=== PATIENT | female | born 1965 | race Caucasian/White ===

== ENCOUNTER → 2020-05-01 15:43 | Outpatient (BNV) | payer MEDICAID, SELFPAY | PROVIDERS: PCP Internal Medicine Geriatric Medicine; Visit Provider Internal Medicine | DX: D05.01 Lobular carcinoma in situ of right breast (principal) | CPT/HCPCS: 99213; 99214 ==

== ENCOUNTER 2020-05-20 18:31 | Emergency (ER) | payer MEDICAID, SELFPAY ==
[2020-05-20 19:18] VITALS: PULSE 90; TEMP 37; O2SAT 98; BMI 43.0
--- NOTE | 2020-05-20 19:40 | ED_ITS ---
HPI - Eye Problem General Chief complaint: Eye Problems Stated complaint: swollen left eye Time Seen by Provider: 05/20/20 19:35 Source: patient Mode of arrival: ambulatory Limitations: no limitations History of Present Illness HPI Narrative: Constitutional : No Weight loss, No Fever, No Chills, No Night Sweats, No Fatigue, No Malaise ENT/Mouth : No Hearing loss, No Ear Pain, No Nasal Congestion, No Sinus Pain, No Hoarseness, No sore throat, No Rhinorrhea, No Swallowing Difficulty Eyes: No Eye Pain, No Swelling, No Redness, No Foreign Body, No Discharge, No Vision Changes Cardiovascular : No Chest Pain, No SOB, No Dyspnea on Exertion, No Orthopnea, No Edema, No Palpitations Respiratory : No Cough, No Sputum, No Wheezing, No Smoke Exposure, No Dyspnea Gastrointestinal : No Nausea, No Vomiting, No Diarrhea, No Constipation, No abdominal Pain, No Hematochezia, No Melena Genitourinary : no irregular bleeding, No Dysuria, No Urinary Frequency, No Hematuria, No Urinary Incontinence, No Urgency, No Flank Pain, No Urinary Flow Changes, No Hesitancy Musculoskeletal : No joint pain, No Myalgias, No Joint Swelling Skin : No Skin Lesions, No rash Neuro : No Weakness, No Numbness, No Paresthesias, No Loss of Consciousness, No Dizziness, No Headache Psych : No Anxiety/Panic, No Depression, No SI/HI/AH/VH, No Social Issues, Heme/Lymph: No Bruising, No Bleeding,No Lymphadenopathy Endocrine : No Polyuria, No Polydipsia, No Temperature IntolerancePatient comes to emergency room complaining of left-sided eye itching. Started 2 days ago, no pain around the eye or with eye movements. Patient states she noticed today that her eyelid started getting swollen, in the morning she is waking up with crusty discharge. Patient states that over last 3 hours, her right eye has started to get itchy as well. Patient denies injury MD chief complaint: eye redness Related Data Home Medications Medication Instructions Recorded Confirmed aspirin 81 mg PO DAILY 05/01/20 05/01/20 atorvastatin 10 mg PO BEDTIME 05/01/20 05/01/20 ferrous sulfate [iron] 325 mg PO BID 05/01/20 05/01/20 letrozole 2.5 mg PO DAILY 05/01/20 05/01/20 lurasidone [Latuda] 80 mg PO QPM 05/01/20 05/01/20 melatonin 5 mg PO BEDTIME 05/01/20 05/01/20 omeprazole 20 mg PO DAILY 05/01/20 05/01/20 vortioxetine [Trintellix] 20 mg PO DAILY 05/01/20 05/01/20 Previous Rx's Medication Instructions Recorded erythromycin 1 applic OPHTHALMIC (EYE) DAILY 05/20/20 #3.5 g Allergies Allergy/AdvReac Type Severity Reaction Status Date / Time No Known Allergies Allergy Unknown Verified 05/01/20 16:07 Review of Systems Review of Systems: Constitutional : No Weight loss, No Fever, No Chills, No Night Sweats, No Fatigue, No Malaise ENT/Mouth : No Hearing loss, No Ear Pain, No Nasal Congestion, No Sinus Pain, No Hoarseness, No sore throat, No Rhinorrhea, No Swallowing Difficulty Eyes: Left eye swelling, redness, discharge, no pain Cardiovascular : No Chest Pain, No SOB, No Dyspnea on Exertion, No Orthopnea, No Edema, No Palpitations Respiratory : No Cough, No Sputum, No Wheezing, No Smoke Exposure, No Dyspnea Gastrointestinal : No Nausea, No Vomiting, No Diarrhea, No Constipation, No abdominal Pain, No Hematochezia, No Melena Genitourinary : no irregular bleeding, No Dysuria, No Urinary Frequency, No Hematuria, No Urinary Incontinence, No Urgency, No Flank Pain, No Urinary Flow Changes, No Hesitancy Musculoskeletal : No joint pain, No Myalgias, No Joint Swelling Skin : No Skin Lesions, No rash Neuro : No Weakness, No Numbness, No Paresthesias, No Loss of Consciousness, No Dizziness, No Headache Psych : No Anxiety/Panic, No Depression, No SI/HI/AH/VH, No Social Issues, Heme/Lymph: No Bruising, No Bleeding,No Lymphadenopathy Endocrine : No Polyuria, No Polydipsia, No Temperature Intolerance [facility] [place] Past Medical History Medical History Anxiety Anxiety and depression Arthralgia Diverticulitis GERD (gastroesophageal reflux disease) GI bleed (~04/2019) History of atypical hyperplasia of breast (~2008) Kidney stones Lobular carcinoma in situ (LCIS) of right breast (~11/2018) Obstructive sleep apnea Pulmonary embolism (~1982) Tubular adenoma (~2005) Surgical History History of laparoscopic cholecystectomy Previous section Family History Family History (Updated 05/01/20 @ 16:18 by Barbara Jarvis RN) Father Colon cancer Maternal Aunt Stomach cancer Paternal Aunt Colon cancer Mother Diabetes Heart disease Social History Social History Alcohol intake: never Smoking Status: Never smoker Advance Directives: No Advance Directives Information Provided: No Physical Exam Vital Signs: Vital Signs: Last Vital Signs Temp 98.6 F 05/20/20 19:18 Pulse 90 05/20/20 19:18 Pulse Ox 98 05/20/20 19:18 Body Mass Index 43.0 Appearance: Alert. Oriented X3. No acute distress. Eyes: Pupils equal, round and reactive to light. Left eye has watery whitish discharge, conjunctival injection on the left side, swollen eyelids on the left side upper and lower, no pain with eye movement, no pain to palpation around the eye. Fluorescent stain test negative, no foreign body, no corneal scratch ENT: Pharynx normal. Neck: Normal inspection. Neck supple. No lymph nodes noted. No crepitus CVS: Normal heart rate and rhythm. Pulses normal. Normal S1 and S2 Respiratory: No respiratory distress. Breath sounds normal. No Wheezing. No rales Abdomen: Soft and nontender. No rigidity. No distention. good BS x4 Skin: Skin warm and dry. Normal skin color. Normal skin turgor. Extremities: No lower extremity edema. No lower extremity edema. No Lacerations. No Rash Neuro: Oriented X 3. No motor deficit. No sensory deficit. Moving all extermities. No slurred speech. MDM - Eye Problem MDM Narrative Medical decision making narrative: I discussed the physical exam with the patient, patient likely having bacterial conjunctivitis versus allergies. Patient will be started on topical antibiotic. Discharge Plan Discharge Clinical Impression: Conjunctivitis Qualifiers: Conjunctivitis type: acute Acute conjunctivitis type: unspecified Laterality: left Qualified Code(s): H10.32 - Unspecified acute conjunctivitis, left eye Patient Disposition: Home, Self-Care Instructions: Conjunctivitis (ED) Additional Instructions: If you have any new or progressing symptoms, please return to the emergency room or call 911. Please follow-up with your primary care physician tomorrow. If you have any worsening or new symptoms, please return to the emergency room or call 911 Prescriptions: New erythromycin 5 mg/gram (0.5 %) ointment 1 applic ophthalmic (eye) DAILY Qty: 3.5 RF: 0 No Action atorvastatin 10 mg Tablet 10 mg PO BEDTIME RF: 0 ferrous sulfate [iron] 325 mg (65 mg iron) Tablet 325 mg PO BID RF: 0 omeprazole 20 mg Capsule,Delayed Release(Dr/Ec) 20 mg PO DAILY RF: 0 aspirin 81 mg Tablet 81 mg PO DAILY RF: 0 letrozole 2.5 mg Tablet 2.5 mg PO DAILY RF: 0 melatonin 5 mg Tablet 5 mg PO BEDTIME RF: 0 Latuda 80 mg Tablet 80 mg PO QPM RF: 0 Trintellix 20 mg Tablet 20 mg PO DAILY RF: 0
[2020-05-20] MEDS: Fluorescein Sodium STRIP 1 STRIP EYE-LEFT (19:46)
== END 2020-05-20 20:13 | disposition home or self-care (01) ==
PROVIDERS: Emergency Provider Emergency Medicine; PCP Internal Medicine Geriatric Medicine
DX: H10.32 Unspecified acute conjunctivitis, left eye (principal); H57.13 Ocular pain, bilateral; Z79.899 Other long term (current) drug therapy
CPT/HCPCS: 99283

== ENCOUNTER → 2020-07-11 14:54 | Outpatient (BNVA) | payer MEDICAID, SELFPAY | PROVIDERS: PCP Internal Medicine Geriatric Medicine; Visit Provider Surgery | DX: D05.01 Lobular carcinoma in situ of right breast (principal); N60.92 Unspecified benign mammary dysplasia of left breast; Z79.811 Long term (current) use of aromatase inhibitors | CPT/HCPCS: 99212 ==

== ENCOUNTER 2020-09-30 10:07 | Outpatient (REF) | payer MEDICAID, SELFPAY ==
[2020-09-30 12:57] LABS: Alanine Aminotransferase 8 U/L (0-31); Albumin Level 4.2 g/dL (3.5-5.0); Alkaline Phosphatase 124 U/L (39-117); Anion Gap 14 (12-20); Aspartate Amino Transferase 11 U/L (5-31); Bilirubin Direct 0.2 mg/dL (0.0-0.5); Bilirubin Total 0.3 mg/dL (0.0-1.0); Blood Urea Nitrogen 10 mg/dL (9-16); Calcium 9.1 mg/dL (8.4-10.2); Carbon Dioxide 27 mmol/L (22-29); Chloride 105 mmol/L (96-108); Cholesterol 162 mg/dL; Estimated Glomerular Filt Rate > 60; Glucose Random 99 mg/dL (60-115); HDL Cholesterol 40 mg/dL; LDL Cholesterol Calculated 98 mg/dl; Potassium 4.2 mmol/L (3.3-5.1); Sodium 142 mmol/L (135-145); Total Protein 7.2 g/dL (6.5-8.0); Triglycerides 124 mg/dL
== END 2020-09-30 10:08 | disposition home or self-care (01) ==
LOC: HO.LAB 10:07
PROVIDERS: PCP Internal Medicine Geriatric Medicine; Visit Provider Internal Medicine Geriatric Medicine
DX: Z79.899 Other long term (current) drug therapy (principal)
CPT/HCPCS: 36415; 80048; 80061; 80076

== ENCOUNTER 2020-12-20 14:52 | Outpatient (REF) | payer MEDICAID, SELFPAY ==
--- NOTE | ~2020-12-20 | US_ITS ---
EXAMINATION: US PELVIS CLINICAL INFORMATION: Ovarian cyst COMPARISON: Previous exam most recent October 2019 TECHNIQUE: Transabdominal pelvic ultrasound was performed. Patient refused transvaginal exam. Exam is limited due to patient body habitus. FINDINGS: The uterus is anteverted and measures 11.9 x 3.1 x 4 6 cm in dimension. No focal uterine lesion is seen. The endometrium is not well visualized. The right ovary measures 7.5 x 6 x 8.9 cm. There is a 7.5 x 5.2 x 7.6 cm right ovarian cyst. This measured 8 x 5.4 x 8.3 cm on previous exam and is probably not appreciably changed. The left ovary is not seen. There is no fluid in the pelvis. US/US pelvic complete IMPRESSION: Limited exam. 7.1 x 5.2 x 7.6 cm simple right ovarian cyst not appreciably changed from previous exams.
== END 2020-12-20 14:53 | disposition home or self-care (01) ==
LOC: HO.US 14:52
PROVIDERS: Visit Provider Nurse Practitioner Family
DX: N83.209 Unspecified ovarian cyst, unspecified side (principal)
CPT/HCPCS: 76856

== ENCOUNTER 2021-03-13 14:02 | Outpatient (REF) | payer MEDICAID, SELFPAY ==
--- NOTE | ~2021-03-13 | MM_ITS ---
EXAMINATION: MM SCREENING DIGITAL BREAST TOMOSYNTHESIS, BILATERAL CLINICAL INFORMATION: Right lumpectomy 11/25/2018 (LCIS, flat epithelial atypia with focal ADH and biopsy site changes). Due for yearly. The lifetime risk of breast cancer based on the Tyrer-Cuzick Model is 48%. COMPARISON: Mammography: 03/07/2020, 06/04/2019, 11/25/2018, 10/12/2018, 10/07/2018, 08/17/2017 TECHNIQUE: Digital breast tomosynthesis is performed in both the craniocaudal and mediolateral oblique views along with computer-aided detection (CAD). Synthesized 2D images are generated from the tomosynthesis. Additional bilateral exaggerated CC and additional bilateral MLO views are provided. FINDINGS: There are scattered areas of fibroglandular density (ACR BI-RADS breast composition Category b). There are post lumpectomy changes on the right with stable scarring. There is small oil cyst again noted in the vicinity of the scar. Neither breast shows interval mass or architectural abnormality or developing density. There are scattered stable benign calcifications including old stable group of calcifications posterior central right breast. The bilateral axilla and are unremarkable. MM/MM tomosynthesis screening BI IMPRESSION: No mammographic evidence of malignancy. Post therapy changes right breast. ASSESSMENT: BI-RADS 2: Benign RECOMMENDATION: 1. Routine annual mammography screening. 2. The lifetime risk of breast cancer based on the Tyrer-Cuzick Model is 48%. Additional annual adjunct screening with breast MRI may be of benefit in women with a risk score of 20% or greater. This patient's information was entered into a reminder system with a target due date for their next mammogram.
== END 2021-03-13 14:03 | disposition home or self-care (01) ==
LOC: HO.MAMMO 14:02
PROVIDERS: Visit Provider Surgery
DX: Z12.31 Encounter for screening mammogram for malignant neoplasm of breast (principal)
CPT/HCPCS: 77063; 77067

== ENCOUNTER → 2021-04-17 15:12 | Outpatient (BNVA) | payer MEDICAID, SELFPAY | PROVIDERS: PCP Internal Medicine Geriatric Medicine; Referring Provider Internal Medicine Geriatric Medicine; Visit Provider Surgery | DX: N60.92 Unspecified benign mammary dysplasia of left breast (principal); D05.01 Lobular carcinoma in situ of right breast | CPT/HCPCS: 99212 ==

== ENCOUNTER 2021-05-09 16:10 | Outpatient (REF) | payer MEDICAID, SELFPAY | END 2021-05-09 16:11 | disposition home or self-care (01) | LOC: HO.MRI 16:10 | PROVIDERS: Visit Provider Surgery | DX: Z13.89 Encounter for screening for other disorder (principal) ==

== ENCOUNTER 2021-08-31 19:36 | Inpatient (IN) | payer MEDICAID, SELFPAY ==
--- NOTE | ~2021-08-31 | CT_ITS ---
EXAMINATION: CT ABDOMEN AND PELVIS without and WITH CONTRAST CLINICAL INFORMATION: Lower GI bleed COMPARISON: GI bleed study 05/02/2019. CT scan abdomen pelvis 04/30/2019 TECHNIQUE: Noncontrast axial images obtained through the abdomen and pelvis. followed by the administration of 80 mL Omnipaque [address] of the abdomen and pelvis was repeated immediate postcontrast and at 2 minute delayed postcontrast. Coronal and sagittal 2-D MPR reformatted images are performed at CT scanner. [This CT examination was performed using dose optimization techniques as appropriate, variously including the following: *Automated exposure control *Adjustment of mA and/or kV according to patient size (this includes techniques or standardized protocols for targeted exams where dose is matched to indication/reason for exam; i.e. extremities or head) *Use of iterative reconstruction technique] DLP: 2366 mGy-cm. FINDINGS: CT SCAN ABDOMEN/PELVIS: Liver, Gallbladder and Biliary Tree: The liver is normal in size, shape, and attenuation. No focal hepatic lesion or biliary ductal dilatation is present. Status post cholecystectomy Pancreas: Unremarkable. Spleen: Unremarkable. Adrenal Glands: Unremarkable. Kidneys and Ureters: 1 mm nonobstructive stone lower pole right kidney. No stone in the left kidney. No ureteral calculus or hydronephrosis. Both kidneys are of normal size and contour with normal cortical thickness and normal enhancement. Bladder: Unremarkable. Gastrointestinal Tract: There are numerable diverticula of the sigmoid and descending colon with scattered diverticula also in the right colon. Surgical suture line at the mid distal sigmoid colon from prior partial sigmoidectomy. No acute change of the bowel. No bowel obstruction. No bowel wall thickening or edema. Moderate volume of stool in the colon. Postcontrast there is no evidence of extravasation or pooling of contrast in the lumen of the bowel. No evidence for active gastrointestinal hemorrhage by CT. The appendix is normal. The small bowel loops are normal. Stomach is unremarkable. Abdominal Wall: There is a fat-containing left periumbilical hernia. Hernia sac measures about 6 cm transverse. Lymph Nodes: Normal. Vascular: Normal enhancement of the abdominal and pelvic vasculature. Pelvic Viscera: Uterus is anteverted. There is a cyst at the superior margin of the body of uterus measuring 8 cm transverse. Density measurement 0 Hounsfield units. Osseous Structures: No acute osseous abnormality. There is degenerative spondylosis of thoracic and lumbar spine. CT/CT gi bleed abd pel wo/w con IMPRESSION: 1. Marked diverticulosis of colon. No evidence for active gastrointestinal hemorrhage. No acute change of the bowel. 2. Status post Cholecystectomy. 3. Adnexal cyst in the pelvis measuring 8 cm. 4. 1 mm nonobstructive stone in right kidney
--- NOTE | ~2021-08-31 | NM_ITS ---
EXAMINATION: NUCLEAR MEDICINE GI BLEEDING CLINICAL INFORMATION: Gastrointestinal hemorrhage. COMPARISON: CT abdomen and pelvis 09/01/2021. Nuclear medicine GI bleeding exam 05/02/2019 TECHNIQUE: 25 mCi of technetium 99m labeled red blood cells injected. Images obtained over the abdomen and pelvis through 60 minutes. FINDINGS: There is initially a faint blush of activity in the lumen of the mid descending colon. Activity continues to increase in the lumen of the left colon.. Most of the activity is seen within the mid transverse colon through splenic flexure. The activity flows into the distal colon on the later images. NM/NM GI bleeding IMPRESSION: Gastric intestinal hemorrhage in the left colon. Initial activity seen in the mid descending colon but the most intense area of activity present in the mid through distal transverse colon
[2021-08-31 19:51] VITALS: BP 141/75; PULSE 83; RESP 16; TEMP 36.4; O2SAT 97; BMI 42.7
[2021-08-31 22:00] LABS: MANUAL DIFF FLAG NO
[2021-08-31 22:02] LABS: Basophils Percent Auto 0.4 % (0-2); Eosinophils Percent Auto 0.4 % (0-4); Hematocrit 34.5 % (37.0-47.0); Hemoglobin 10.7 g/dl (12.0-16.0); Imm Gran Abs Auto 0.03 X10*3/uL (0.00-0.03); Imm Gran Pct Auto 0.3 % (0.0-0.4); Lymphocytes Absolute Auto 2.2 X10*3/uL (1.2-4.9); Lymphocytes Percent Auto 23.9 % (20-40); Mean Corpuscular Hemoglobin 26.8 pg (27.0-33.0); Mean Corpuscular Volume 86.3 fL (80.0-98.0); Mean Platelet Volume 10.7 fL (9.4-12.3); Monocytes Absolute Auto 0.6 X10*3/uL (0.1-1.2); Monocytes Percent Auto 6.6 % (2-11); Neutrophils Absolute Auto 6.3 x10*3/uL (2.0-8.3); Neutrophils Percent Auto 68.4 % (45-73); Platelet Count 315 X10*3/uL (160-400); Red Cell Distribution Width 14.1 % (11.0-16.0); White Blood Count 9.3 X10*3/uL (4.8-10.8)
[2021-08-31 22:19] LABS: Alanine Aminotransferase 7 U/L (0-31); Albumin Level 3.8 g/dL (3.5-5.0); Alkaline Phosphatase 124 U/L (39-117); Anion Gap 12 (12-20); Aspartate Amino Transferase 10 U/L (5-31); Bilirubin Total 0.3 mg/dL (0.0-1.0); Blood Urea Nitrogen 14 mg/dL (9-16); Calcium 9.4 mg/dL (8.4-10.2); Carbon Dioxide 26 mmol/L (22-29); Chloride 108 mmol/L (96-108); Creatinine Clr Calc Pharmacy 105.1; Estimated Glomerular Filt Rate > 60; Glucose Random 104 mg/dL (60-115); Potassium 4.1 mmol/L (3.3-5.1); Sodium 142 mmol/L (135-145); Total Protein 6.7 g/dL (6.5-8.0)
--- NOTE | 2021-08-31 23:34 | ED.FEMALEGU ---
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 Patient tells me that this has been going on for 2 days, she tells me that she has had 4-5 bowel movements over the past 2 days in each time she has a bowel movement she feels that the toilet bowl with bright red blood. She tells me that this has happened before. She has never required blood transfusions. She does have a complaints of weakness and dizziness described as disequilibrium. Patient does tell me she was constipated a few days ago however that has subsided. Patient denies fevers, chills, nausea, vomiting, chest pain, shortness of breath, abdominal pain, headache. <PURNIMA Fallon Last Filed: 09/01/21 00:45> Onset (ago): day(s) (1) <PURNIMA Fallon Last Filed: 09/01/21 00:45> Severity: similar to previous episodes <PURNIMA Fallon Last Filed: 09/01/21 00:45> Quality of pain: burning <PURNIMA Fallon Last Filed: 09/01/21 00:45> Consistency: intermittent <PURNIMA Fallon Last Filed: 09/01/21 00:45> Vaginal discharge: none <PURNIMA Fallon - Last Filed: 09/01/21 00:45> Vaginal bleeding: none <PURNIMA Fallon - Last Filed: 09/01/21 00:45> Exacerbating factors: other (Defecation) <PURNIMA Fallon - Last Filed: 09/01/21 00:45> Relieving factors: none <PURNIMA Fallon - Last Filed: 09/01/21 00:45> Associated symptoms: denies other symptoms <PURNIMA Fallon - Last Filed: 09/01/21 00:45> Treatment prior to arrival: none <PURNIMA Fallon - Last Filed: 09/01/21 00:45> Related Data Home medications: Home Medications Medication Instructions Recorded Confirmed aspirin 81 mg tablet 81 mg PO DAILY 05/01/20 05/02/21 atorvastatin 10 mg tablet 10 mg PO BEDTIME 05/01/20 05/02/21 ferrous sulfate 325 mg (65 mg 325 mg PO BID 05/01/20 05/02/21 iron) tablet (iron) letrozole 2.5 mg tablet 2.5 mg PO DAILY 05/01/20 05/02/21 lurasidone 80 mg tablet (Latuda) 80 mg PO QPM 05/01/20 05/02/21 melatonin 5 mg tablet 5 mg PO BEDTIME 05/01/20 05/02/21 omeprazole 20 mg capsule,delayed 20 mg PO DAILY 05/01/20 05/02/21 release vortioxetine 20 mg tablet 20 mg PO DAILY 05/01/20 05/02/21 (Trintellix) clonazepam 1 mg disintegrating 1 mg PO TID tab 07/11/20 05/02/21 tablet zolpidem 10 mg tablet (Ambien) 10 mg PO BEDTIME PRN 07/11/20 05/02/21 Previous Rx's Medication Instructions Recorded pramoxine 1 % topical foam 1 appl ND BID #15 g 09/01/21 (Proctofoam) <PURNIMA Fallon Last Filed: 09/01/21 00:45> Allergies/Adverse reactions: Allergies Allergy/AdvReac Type Severity Reaction Status Date / Time No Known Allergies Allergy Unknown Verified 05/02/21 16:07 <PURNIMA Fallon - Last Filed: 09/01/21 00:45> Review of Systems Review of Systems: Constitutional : No Weight loss, No Fever, No Chills, No Fatigue, No Malaise ENT/Mouth : No sore throat, No Rhinorrhea Eyes: No Eye Pain, No Swelling, No Redness Cardiovascular : No Chest Pain, No SOB, No Dyspnea on Exertion, No Orthopnea, No Edema, No Palpitations Respiratory : No Cough, No Sputum, No Wheezing Gastrointestinal : No Nausea, No Vomiting, No Diarrhea, No Constipation, No abdominal Pain, No Hematochezia, No Melena Genitourinary : No Dysuria, No Urinary Frequency, No Hematuria, Musculoskeletal : No joint pain, No Myalgias, No Joint Swelling Skin : No Skin Lesions, No rash Neuro : No Weakness, No Numbness, No Dizziness, No Headache Psych : No Anxiety/Panic, No Depression All other systems reviewed and are negative <PURNIMA Fallon - Last Filed: 09/01/21 00:45> Yes all other systems are reviewed and are negative <PURNIMA Fallon - Last Filed: 09/01/21 00:45> FORMERLY [facility] Past Medical History Attestation statement: The following information was validated with the patient. <PURNIMA Fallon - Last Filed: 09/01/21 00:45> Source: old records reviewed and nursing notes reviewed <PURNIMA Fallon - Last Filed: 09/01/21 00:45> Medical History: Medical History Anxiety Anxiety and depression Arthralgia Diverticulitis GERD (gastroesophageal reflux disease) GI bleed (~04/2019) History of atypical hyperplasia of breast (~2008) Kidney stones Lobular carcinoma in situ (LCIS) of right breast (~11/2018) Obstructive sleep apnea Pulmonary embolism (~1982) Tubular adenoma (~2005) <PURNIMA Fallon Last Filed: 09/01/21 00:45> Surgical History: Surgical History H/O breast biopsy History of colonoscopy History of laparoscopic cholecystectomy Previous section <PURNIMA Fallon - Last Filed: 09/01/21 00:45> Family History Family History: Family History Father Colon cancer Maternal Aunt Stomach cancer Paternal Aunt Colon cancer Mother Diabetes Heart disease <PURNIMA Fallon - Last Filed: 09/01/21 00:45> Social History Social History: Social History Are you a primary child care development specialist to a significant other at home: No Alcohol intake: never Advance Directives: No <PURNIMA Fallon - Last Filed: 09/01/21 00:45> Physical Exam Vital Signs: Vital Signs: Last Vital Signs Temp 97.6 F 08/31/21 19:51 Pulse 83 08/31/21 19:51 Resp 16 08/31/21 19:51 BP 141/75 H 08/31/21 19:51 Pulse Ox 97 08/31/21 19:51 BMI result Body Mass Index 42.7 VSS <PURNIMA Fallon - Last Filed: 09/01/21 00:45> Vital Signs: Last Vital Signs Temp 97.6 F 08/31/21 19:51 Pulse 83 08/31/21 19:51 Resp 16 08/31/21 19:51 BP 141/75 H 08/31/21 19:51 Pulse Ox 97 08/31/21 19:51 BMI result Body Mass Index 42.7 <Bernadine Charles MD - Last Filed: 09/01/21 01:59> Appearance: Alert.? Oriented X3.? No acute distress.? Head: Normocephalic, atraumatic, no step-offs or deformities Eyes: Pupils equal, round and reactive to light.? ENT: Pharynx normal.? Neck: Normal inspection.? Neck supple.? CVS: Normal heart rate and rhythm.? Pulses normal.? Respiratory: No respiratory distress.? Breath sounds normal.? Abdomen: Soft and nontender.? Skin: Skin warm and dry.? Normal skin color.? Normal skin turgor.? Rectal exam: Non strangulated/non incarcerated external hemorrhoid that is not bleeding. Upon manual examination there is bright red blood noted per rectum, with some blood clots. Extremities: No lower extremity edema.? No calf ttp. 5/5 strength to bilateral upper and lower extremities Back: No midline tenderness, no C-spine tenderness, full range of motion, no CVA tenderness bilaterally Neuro: Oriented X 3.? No motor deficit.? No sensory deficit. <PURNIMA Fallon - Last Filed: 09/01/21 00:45> Course Reevaluation(s) Reevaluation #1: Patient's CBC with no leukocytosis, normocytic anemia is noted, decreased red blood cells. No acute electrolyte abnormalities. OBS positive. Type and screen pending. Pending CT of abdomen and pelvis to rule out GI bleed. <PURNIMA Fallon - Last Filed: 09/01/21 00:45> Time: 00:04 <PURNIMA Fallon - Last Filed: 09/01/21 00:45> Reevaluation #2: CT of abdomen and pelvis pending. Patient was signed out to . Annabelley admit. <PURNIMA Fallon - Last Filed: 09/01/21 00:45> Time: 00:42 <PURNIMA Fallon - Last Filed: 09/01/21 00:45> Reevaluation #3: I discussed the case with inpatient hospitalist who accepts admission. On review of CT scan there is no evidence of active hemorrhage. <Bernadine Charles MD - Last Filed: 09/01/21 01:59> MDM - Female Genitourinary [facility] Narrative Medical decision making narrative: [id number] yo f pmhx rectal bleed, anxiety, depression, LCIS of right breast presnts with concerns of bright red blood per rectum x2 days progressively worsening. Patient showed me pictures after she had a bowel movement it does appear as though the toilet bowl is filled with bright red blood throughout. She tells me that it is also mixed in with her stool. She has a history of GI bleeds, she tells me a polyp ruptured before, she has no information or documentation on this here. She has never required a blood transfusion. She does have a complaints of dizziness. Patient is on 81 mg of asa daily PE significant for bright red blood per rectum with clots. An external hemorrhoid nonbleeding, nonthrombosed, non strangulated or incarcerated Plan- labs, obs, abdominal ct w/ contrast to r/o internal bleeding, ekg <PURNIMA Fallon - Last Filed: 09/01/21 00:45> Medical Records Attestation: I reviewed the patient's medical records. <PURNIMA Fallon - Last Filed: 09/01/21 00:45> Lab Data Attestation: I reviewed the patient's lab results. <PURNIMA Fallon - Last Filed: 09/01/21 00:45> Result diagrams: : 08/31/21 21:54 08/31/21 21:54 <PURNIMA Fallon - Last Filed: 09/01/21 00:45> Labs: Lab Results 08/31/21 08/31/21 08/31/21 Range/Units 21:54 21:54 23:46 WBC 9.3 (4.8-10.8) X10*3/uL RBC 4.00 L (4.20-5.50) X10*6/uL Hgb 10.7 L (12.0-16.0) g/dl Hct 34.5 L (37.0-47.0) % MCV 86.3 (80.0-98.0) fL MCH 26.8 L (27.0-33.0) pg MCHC 31.0 (31.0-35.0) g/dl RDW 14.1 (11.0-16.0) % Plt Count 315 (160-400) X10*3/uL MPV 10.7 (9.4-12.3) fL Immature Gran % (Auto) 0.3 (0.0-0.4) % Neut % (Auto) 68.4 (45-73) % Lymph % (Auto) 23.9 (20-40) % Austin % (Auto) 6.6 (2-11) % Eos % (Auto) 0.4 (0-4) % Baso % (Auto) 0.4 (0-2) % Lymph # (Auto) 2.2 (1.2-4.9) X10*3/uL Austin # (Auto) 0.6 (0.1-1.2) X10*3/uL Eos # (Auto) 0.0 (0.0-0.4) X10*3/uL Baso # (Auto) 0.0 (0.0-0.2) X10*3/uL Abs Immat Gran (auto) 0.03 (0.00-0.03) X10*3/uL Absolute Neuts (auto) 6.3 (2.0-8.3) x10*3/uL Absolute Nucleated RBC 0.000 (0.0-0.012) X10*3/uL Nucleated RBC % (auto) 0.0 (0.0-0.2) /100WBC Sodium 142 (135-145) mmol/L Potassium 4.1 (3.3-5.1) mmol/L Chloride 108 (96-108) mmol/L Carbon Dioxide 26 (22-29) mmol/L Anion Gap 12 (12-20) BUN 14 (9-16) mg/dL Creatinine 0.77 (0.5-1.4) mg/dL Estim Creat Clear Calc 105.1 Estimated GFR > 60 Random Glucose 104 (60-115) mg/dL Calcium 9.4 D (8.4-10.2) mg/dL Total Bilirubin 0.3 (0.0-1.0) mg/dL AST 10 (5-31) U/L ALT 7 (0-31) U/L Alkaline Phosphatase 124 H (39-117) U/L Total Protein 6.7 (6.5-8.0) g/dL Albumin 3.8 (3.5-5.0) g/dL Stool Occult Blood POSITIVE (NEGATIVE) COVID-19 (EMILY) (Negative) COVID-[address] [facility] Blood Type Antibody Screen 09/01/21 09/01/21 Range/Units 00:00 01:32 WBC (4.8-10.8) X10*3/uL RBC (4.20-5.50) X10*6/uL Hgb (12.0-16.0) g/dl Hct (37.0-47.0) % MCV (80.0-98.0) fL MCH (27.0-33.0) pg MCHC (31.0-35.0) g/dl RDW (11.0-16.0) % Plt Count (160-400) X10*3/uL MPV (9.4-12.3) fL Immature Gran % (Auto) (0.0-0.4) % Neut % (Auto) (45-73) % Lymph % (Auto) (20-40) % Austin % (Auto) (2-11) % Eos % (Auto) (0-4) % Baso % (Auto) (0-2) % Lymph # (Auto) (1.2-4.9) X10*3/uL Austin # (Auto) (0.1-1.2) X10*3/uL Eos # (Auto) (0.0-0.4) X10*3/uL Baso # (Auto) (0.0-0.2) X10*3/uL Abs Immat Gran (auto) (0.00-0.03) X10*3/uL Absolute Neuts (auto) (2.0-8.3) x10*3/uL Absolute Nucleated RBC (0.0-0.012) X10*3/uL Nucleated RBC % (auto) (0.0-0.2) /100WBC Sodium (135-145) mmol/L Potassium (3.3-5.1) mmol/L Chloride (96-108) mmol/L Carbon Dioxide (22-29) mmol/L Anion Gap (12-20) BUN (9-16) mg/dL Creatinine (0.5-1.4) mg/dL Estim Creat Clear Calc Estimated GFR Random Glucose (60-115) mg/dL Calcium (8.4-10.2) mg/dL Total Bilirubin (0.0-1.0) mg/dL AST (5-31) U/L ALT (0-31) U/L Alkaline Phosphatase (39-117) U/L Total Protein (6.5-8.0) g/dL Albumin (3.5-5.0) g/dL Stool Occult Blood (NEGATIVE) COVID-19 (EMILY) Negative (Negative) COVID-19 Clin Com See Note Blood Type O Positive Antibody Screen NEGATIVE <PURNIMA Fallon - Last Filed: 09/01/21 00:45> Lab Results 08/31/21 08/31/21 08/31/21 Range/Units 21:54 21:54 23:46 WBC 9.3 (4.8-10.8) X10*3/uL RBC 4.00 L (4.20-5.50) X10*6/uL Hgb 10.7 L (12.0-16.0) g/dl Hct 34.5 L (37.0-47.0) % MCV 86.3 (80.0-98.0) fL MCH 26.8 L (27.0-33.0) pg MCHC 31.0 (31.0-35.0) g/dl RDW 14.1 (11.0-16.0) % Plt Count 315 (160-400) X10*3/uL MPV 10.7 (9.4-12.3) fL Immature Gran % (Auto) 0.3 (0.0-0.4) % Neut % (Auto) 68.4 (45-73) % Lymph % (Auto) 23.9 (20-40) % Austin % (Auto) 6.6 (2-11) % Eos % (Auto) 0.4 (0-4) % Baso % (Auto) 0.4 (0-2) % Lymph # (Auto) 2.2 (1.2-4.9) X10*3/uL Austin # (Auto) 0.6 (0.1-1.2) X10*3/uL Eos # (Auto) 0.0 (0.0-0.4) X10*3/uL Baso # (Auto) 0.0 (0.0-0.2) X10*3/uL Abs Immat Gran (auto) 0.03 (0.00-0.03) X10*3/uL Absolute Neuts (auto) 6.3 (2.0-8.3) x10*3/uL Absolute Nucleated RBC 0.000 (0.0-0.012) X10*3/uL Nucleated RBC % (auto) 0.0 (0.0-0.2) /100WBC Sodium 142 (135-145) mmol/L Potassium 4.1 (3.3-5.1) mmol/L Chloride 108 (96-108) mmol/L Carbon Dioxide 26 (22-29) mmol/L Anion Gap 12 (12-20) BUN 14 (9-16) mg/dL Creatinine 0.77 (0.5-1.4) mg/dL Estim Creat Clear Calc 105.1 Estimated GFR > 60 Random Glucose 104 (60-115) mg/dL Calcium 9.4 D (8.4-10.2) mg/dL Total Bilirubin 0.3 (0.0-1.0) mg/dL AST 10 (5-31) U/L ALT 7 (0-31) U/L Alkaline Phosphatase 124 H (39-117) U/L Total Protein 6.7 (6.5-8.0) g/dL Albumin 3.8 (3.5-5.0) g/dL Stool Occult Blood POSITIVE (NEGATIVE) COVID-19 (EMILY) (Negative) COVID-19 Clin Com Blood Type Antibody Screen 09/01/21 09/01/21 Range/Units 00:00 01:32 WBC (4.8-10.8) X10*3/uL RBC (4.20-5.50) X10*6/uL Hgb (12.0-16.0) g/dl Hct (37.0-47.0) % MCV (80.0-98.0) fL MCH (27.0-33.0) pg MCHC (31.0-35.0) g/dl RDW (11.0-16.0) % Plt Count (160-400) X10*3/uL MPV (9.4-12.3) fL Immature Gran % (Auto) (0.0-0.4) % Neut % (Auto) (45-73) % Lymph % (Auto) (20-40) % Austin % (Auto) (2-11) % Eos % (Auto) (0-4) % Baso % (Auto) (0-2) % Lymph # (Auto) (1.2-4.9) X10*3/uL Austin # (Auto) (0.1-1.2) X10*3/uL Eos # (Auto) (0.0-0.4) X10*3/uL Baso # (Auto) (0.0-0.2) X10*3/uL Abs Immat Gran (auto) (0.00-0.03) X10*3/uL Absolute Neuts (auto) (2.0-8.3) x10*3/uL Absolute Nucleated RBC (0.0-0.012) X10*3/uL Nucleated RBC % (auto) (0.0-0.2) /100WBC Sodium (135-145) mmol/L Potassium (3.3-5.1) mmol/L Chloride (96-108) mmol/L Carbon Dioxide (22-29) mmol/L Anion Gap (12-20) BUN (9-16) mg/dL Creatinine (0.5-1.4) mg/dL Estim Creat Clear Calc Estimated GFR Random Glucose (60-115) mg/dL Calcium (8.4-10.2) mg/dL Total Bilirubin (0.0-1.0) mg/dL AST (5-31) U/L ALT (0-31) U/L Alkaline Phosphatase (39-117) U/L Total Protein (6.5-8.0) g/dL Albumin (3.5-5.0) g/dL Stool Occult Blood (NEGATIVE) COVID-19 (EMILY) Negative (Negative) COVID-19 Clin Com See Note Blood Type O Positive Antibody Screen NEGATIVE <Bernadine Charles MD - Last Filed: 09/01/21 01:59> Critical Care Time Critical Care Time Critical Care Time: No <PURNIMA Fallon - Last Filed: 09/01/21 00:45> Discharge Plan Discharge Clinical Impression: GI (gastrointestinal bleed) <PURNIMA Fallon - Last Filed: 09/01/21 00:45> Patient Disposition: Admitted As Inpatient <PURNIMA Fallon - Last Filed: 09/01/21 00:45>
[2021-08-31 23:53] LABS: OBS Int Ctl Valid YES; OBS1 POSITIVE (NEGATIVE)
[2021-09-01] VITALS (7 sets, daily range): BP systolic 93–130; BP diastolic 52–70; PULSE 70–113; RESP 12–18; TEMP 36.6–37.1; O2SAT 95–100
--- NOTE | 2021-09-01 00:01 | ECG_ITS ---
Test Reason : gi bleed Blood Pressure : / mmHG Vent. Rate : 079 BPM Atrial Rate : 079 BPM P-R Int : 144 ms QRS Dur : 128 ms QT Int : 430 ms P-R-T Axes : 029 -40 -14 degrees QTc Int : 493 ms Normal sinus rhythm Left axis deviation Right bundle branch block Abnormal ECG When compared with ECG of 21-JUL-2018 11:43, Right bundle branch block is now Present Referred By: Barbara Hawkins Electronically Signed By:ITALO WHITNEY MD
[2021-09-01] MEDS: iohexoL 350 MG/ML 100 ML INFUS..BTL 80 ML IV (01:09)
--- NOTE | 2021-09-01 01:15 | PC.NURSE ---
PT moved to main ed report given to makayla terrell.
[2021-09-01 01:51] LABS: COVID-19 Test Negative (Negative)
--- NOTE | 2021-09-01 02:32 | PM.IMHP ---
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 Patient reported that today she had 4 episodes of blood in the stool. Bright red blood per rectum. Denies any abdominal pain. Denies any nausea vomiting. Denies any further episodes of she came to the hospital. Denies any lightheadedness dizziness. Denies any chest pain or palpitations. Denies any recent history of antibiotics or [id number] pain medication usage. Denies any numbness tingling or focal weakness. Review of all other systems is negative except mentioned above ER course: Per ER team patient noted to have guaiac-positive stool; vitals stable; hemoglobin stable; CT abdomen was done which showed no evidence of active bleeding; admitted to the hospital for further management PMFSH Medical History Anxiety Anxiety and depression Arthralgia Diverticulitis GERD (gastroesophageal reflux disease) GI bleed (~04/2019) History of atypical hyperplasia of breast (~2008) Kidney stones Lobular carcinoma in situ (LCIS) of right breast (~11/2018) Obstructive sleep apnea Pulmonary embolism (~1982) Tubular adenoma (~2005) Family History Father Colon cancer Maternal Aunt Stomach cancer Paternal Aunt Colon cancer Mother Diabetes Heart disease Surgical History H/O breast biopsy History of colonoscopy History of laparoscopic cholecystectomy Previous section Social History Are you a primary md do resident urgent care to a significant other at home: No Alcohol intake: never Advance Directives: No Meds Allergies Allergy/AdvReac Type Severity Reaction Status Date / Time No Known Allergies Allergy Unknown Verified 05/02/21 16:07 Active Medications: Current Medications Pharmacy Consult (Consult Rx Perform Med Rec) 1 each MISCELLANE ONCE PRN PRN Reason: Consult order Home Medications Medication Instructions Recorded Confirmed Last Taken Type atorvastatin 10 mg tablet 10 mg PO BEDTIME 05/01/20 09/01/21 Unknown History ferrous sulfate 325 mg (65 mg 325 mg PO BID 05/01/20 09/01/21 Unknown History iron) tablet (iron) letrozole 2.5 mg tablet 2.5 mg PO DAILY 05/01/20 09/01/21 Unknown History lurasidone 80 mg tablet (Latuda) 80 mg PO QPM 05/01/20 09/01/21 Unknown History melatonin 5 mg tablet 5 mg PO BEDTIME 05/01/20 09/01/21 Unknown History omeprazole 20 mg capsule,delayed 20 mg PO DAILY 05/01/20 09/01/21 Unknown History release vortioxetine 20 mg tablet 20 mg PO DAILY 05/01/20 09/01/21 Unknown History (Trintellix) clonazepam 1 mg disintegrating 1 mg PO TID tab 07/11/20 09/01/21 Unknown History tablet zolpidem 10 mg tablet (Ambien) 10 mg PO BEDTIME PRN 07/11/20 09/01/21 Unknown History aspirin 81 mg tablet,delayed 1 tab PO QAM 09/01/21 09/01/21 Unknown History release fluticasone propionate 220 1 puff PO BID 09/01/21 09/01/21 Unknown History mcg/actuation HFA aerosol inhaler (Flovent HFA) Physical Exam Vital Signs and Narrative: Vital Signs: Last Vital Signs Temp 97.6 F 08/31/21 19:51 Pulse 83 08/31/21 19:51 Resp 16 08/31/21 19:51 BP 141/75 H 08/31/21 19:51 Pulse Ox 97 08/31/21 19:51 BMI result Body Mass Index 42.7 Gen: Appears be in no acute distress HEENT: NCAT, Moist mucosa. Pulmonary: Vesicular breath sounds, fair air entry CVS: Normal S1-S2 Abdomen: BS+, Soft, Nontender Extremities: Warm well perfused Neuro: Alert and awake. Results Labs CBC and Chem 7: 08/31/21 21:54 08/31/21 21:54 Labs: Laboratory Results - last 24 hr 08/31/21 08/31/21 08/31/21 21:54 21:54 23:46 MCV 86.3 MCH 26.8 L MCHC 31.0 RDW 14.1 Plt Count 315 MPV 10.7 Immature Gran % (Auto) 0.3 Neut % (Auto) 68.4 Lymph % (Auto) 23.9 [place] % (Auto) 6.6 Eos % (Auto) 0.4 Baso % (Auto) 0.4 Lymph # (Auto) 2.2 [place] # (Auto) 0.6 Eos # (Auto) 0.0 Baso # (Auto) 0.0 Abs Immat Gran (auto) 0.03 Absolute Neuts (auto) 6.3 Absolute Nucleated RBC 0.000 Nucleated RBC % (auto) 0.0 Anion Gap 12 Estim Creat Clear Calc 105.1 Estimated GFR > 60 Random Glucose 104 Calcium 9.4 D Total Bilirubin 0.3 AST 10 ALT 7 Alkaline Phosphatase 124 H Total Protein 6.7 Albumin 3.8 Stool Occult Blood POSITIVE COVID-19 (EMILY) COVID-19 Clin Com Blood Type Antibody Screen 09/01/21 09/01/21 00:00 01:32 MCV MCH MCHC RDW Plt Count MPV Immature Gran % (Auto) Neut % (Auto) Lymph % (Auto) [place] % (Auto) Eos % (Auto) Baso % (Auto) Lymph # (Auto) [place] # (Auto) Eos # (Auto) Baso # (Auto) Abs Immat Gran (auto) Absolute Neuts (auto) Absolute Nucleated RBC Nucleated RBC % (auto) Anion Gap Estim Creat Clear Calc Estimated GFR Random Glucose Calcium Total Bilirubin AST ALT Alkaline Phosphatase Total Protein Albumin Stool Occult Blood COVID-19 (EMILY) Negative COVID-19 Clin Com See Note Blood Type O Positive Antibody Screen NEGATIVE Imaging Radiologist's Impressions: Impressions Abdomen/Pelvis CT 09/01/21 01:05 IMPRESSION: 1. Marked diverticulosis of colon. No evidence for active gastrointestinal hemorrhage. No acute change of the bowel. 2. Status post Cholecystectomy. 3. Adnexal cyst in the pelvis measuring 8 cm. 4. 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 Admitted for following GI bleed: Patient reported bright red blood per rectum. Patient reports she had prior history of GI bleed has had colonoscopy-removed polyp about a year ago. Currently H&H stable GI consult Hold home aspirin. History of asthma: Stable For all other chronic conditions, home medications continued DVT prophylaxis: SCD boots Code status: Full code Quality Stroke Does the patient have a stroke diagnosis?: No VTE Prior VTE?: No VTE Risk Level:: Medical - moderate - high VTE Device Contraindication: N/A - Device Ordered VTE Drug Contraindication: Treatment Not Indicated
--- NOTE | 2021-09-01 02:59 | PC.NURSE ---
I assumed care of this pt at 0100 when [facility] closed. The pt states she came to the ED for evaluation of abdominal pain. Currently she denies pain. There is no nausea or vomiting, no chest pain or shortness of breath. She remains calm and cooperative with family at the bedside and is awaiting MD dispo.
--- NOTE | 2021-09-01 03:19 | PC.NURSE ---
Assumed care of pt from main ED. Pt ambulatory from wc to bed, in NAD, denies complaints. Vitals as charted. Given ice water and TV remote. Call light at hand. Awaiting inpatient bed assignment
--- NOTE | 2021-09-01 03:56 | PC.NURSE ---
consult put in to Celestino, change of application trainer
[2021-09-01] MEDS: Omeprazole 20 MG CAPSULE.DR PO (06:29)
[2021-09-01 06:43] LABS: MANUAL DIFF FLAG NO
[2021-09-01 06:53] LABS: Basophils Absolute Auto 0.1 X10*3/uL (0.0-0.2); Basophils Percent Auto 0.6 % (0-2); Eosinophils Absolute Auto 0.1 X10*3/uL (0.0-0.4); Eosinophils Percent Auto 0.9 % (0-4); Hematocrit 30.9 % (37.0-47.0); Hemoglobin 9.6 g/dl (12.0-16.0); Imm Gran Abs Auto 0.04 X10*3/uL (0.00-0.03); Imm Gran Pct Auto 0.5 % (0.0-0.4); Lymphocytes Absolute Auto 2.8 X10*3/uL (1.2-4.9); Lymphocytes Percent Auto 31.6 % (20-40); Mean Corpuscular HGB Conc 31.1 g/dl (31.0-35.0); Mean Corpuscular Hemoglobin 26.7 pg (27.0-33.0); Mean Corpuscular Volume 86.1 fL (80.0-98.0); Mean Platelet Volume 10.8 fL (9.4-12.3); Monocytes Absolute Auto 0.8 X10*3/uL (0.1-1.2); Monocytes Percent Auto 8.8 % (2-11); Neutrophils Absolute Auto 5.1 x10*3/uL (2.0-8.3); Neutrophils Percent Auto 57.6 % (45-73); Platelet Count 287 X10*3/uL (160-400); Red Blood Count 3.59 X10*6/uL (4.20-5.50); Red Cell Distribution Width 14.2 % (11.0-16.0); White Blood Count 8.8 X10*3/uL (4.8-10.8)
[2021-09-01 06:59] LABS: Anion Gap 11 (12-20); Blood Urea Nitrogen 14 mg/dL (9-16); Calcium 8.9 mg/dL (8.4-10.2); Carbon Dioxide 27 mmol/L (22-29); Chloride 107 mmol/L (96-108); Estimated Glomerular Filt Rate > 60; Glucose Random 98 mg/dL (60-115); Potassium 3.9 mmol/L (3.3-5.1); Sodium 141 mmol/L (135-145)
[2021-09-01] MEDS: Ferrous Sulfate 324 MG TABLET.DR PO ×2 (09:03→16:01)
[2021-09-01] MEDS: clonazePAM 1 MG TABLET PO ×3 (09:03→21:53)
--- NOTE | 2021-09-01 09:12 | PM.EVENT ---
Event Note Date of Service: 09/01/21 Event Note: I personally saw and examined the patient, I reviewed labs, imaging, medication and admission note.. She is admitted with rectal bleeding with acute blood loss anemia.. She states that she had colonocopy by Dr. Glez a year ago, I have no record of it. There is no active bleed, will clinically monitor and get GI's opinion next step. O/w assesment and plan per H and P from this morning.
--- NOTE | 2021-09-01 09:20 | PHA.MEDREC ---
Pharmacy Consult ? Medication Reconciliation Pharmacy has completed the medication reconciliation. No remarkable issues. Nohelia Montanez, JordanD
--- NOTE | 2021-09-01 09:28 | PHA.MEDREC ---
Pharmacy Consult ? Medication Reconciliation Pharmacy has completed the medication reconciliation. No remarkable issues. Nohelia Montanez, JordanD
[2021-09-01] MEDS: Letrozole 2.5 MG TABLET PO (11:15)
[2021-09-01] MEDS: Vortioxetine Hydrobromide 20 MG TABLET PO (11:15)
--- NOTE | 2021-09-01 14:05 | PM.EVENT ---
Event Note Date of Service: 09/01/21 Event Note: GI consult dictated presentation is c/w diverticular bleeding. monitor hct, if recurrent bleeding, obtain nuclear med rbc scan. last colon 08/03 showed tics and no recurrent polyps.
[2021-09-01] MEDS: 0.9 % Sodium Chloride Flush 3 ML SYRINGE IVFLUSH (16:01)
[2021-09-01] MEDS: Lurasidone HCl 80 MG TABLET PO (21:53)
[2021-09-01] MEDS: Atorvastatin Calcium 10 MG TABLET PO (21:58)
--- NOTE | 2021-09-01 22:09 | PC.NURSE ---
PT EATING/DRINKING MINIMALLY ENCOURGAED TO HAVE A SNACK BUT STATES SHES NOT IN THE MOOD. PT STATES SHE DOESNT FEEL LIKE SHE HAS TOO MUCH ENERGY PCT CHECKING POC AT THIS TIME
[2021-09-01 22:15] LABS: Glucose, Whole Blood 107 mg/dL (60-115)
[2021-09-02] VITALS (9 sets, daily range): BP systolic 96–135; BP diastolic 63–79; PULSE 97–127; RESP 12–23; TEMP 36.6–36.9; O2SAT 96–98
--- NOTE | 2021-09-02 01:35 | CONS_ITS ---
DATE OF SERVICE: 09/01/2021 REFERRING PHYSICIAN: Johnson Shirley MD REASON FOR CONSULTATION: Rectal bleeding. HISTORY OF PRESENT ILLNESS: The patient is a pleasant 56-year-old woman seen today in consultation, who was admitted to the hospital with complaints of rectal bleeding. Symptoms began the day of admission when she passed bright red blood per rectum without any associated abdominal pain, there was stool mixed with the blood. She had no associated upper GI symptoms and reports being compliant with her proton pump inhibitor, which she takes for gastroesophageal reflux disease. She does not take blood thinners and has not used any NSAIDs other than aspirin, which she is on chronically. She does have a history of diverticular disease and has previously undergone sigmoid resection. She also has a history of colon polyps and last underwent colonoscopy in July 2020 for followup of a tubulovillous adenoma involving the ileocecal valve. This showed no residual polypoid tissue. Diverticulosis was noted in the descending and sigmoid colon, and her anastomosis was widely patent. Since admission, she has been stable with no recurrent bleeding. Her hematocrit on admission was 34.5 and this morning was 30.9. She has not required blood transfusion. PAST MEDICAL HISTORY: 1. Diverticulosis with history of colon polyps as above. 2. Gastroesophageal reflux disease. 3. Anxiety/depression. 4. Nephrolithiasis. 5. Sleep apnea. 6. Breast cancer. 7. Asthma. 8. Pulmonary embolism. CURRENT MEDICATIONS: Her current medication list is reviewed in the chart. ALLERGIES: THERE ARE NONE REPORTED. FAMILY HISTORY: This is reviewed with the patient and is positive for colon cancer. SOCIAL HISTORY: There is no current tobacco, alcohol, or substance abuse. REVIEW OF SYSTEMS: SKIN: No pruritus. HEENT: Negative. CARDIOPULMONARY: No shortness of breath or chest pain. GASTROINTESTINAL: As above. GENITOURINARY: Negative. NEUROPSYCHIATRIC: Negative. PHYSICAL EXAMINATION: GENERAL: Shows a pleasant female, lying in bed, eating lunch. VITAL SIGNS: Reviewed in the electronic medical record and stable. SKIN: Anicteric. HEENT: Shows no scleral icterus. NECK: Without lymphadenopathy or thyromegaly. LUNGS: Clear. HEART: Shows a regular rate and rhythm. S1, S2. No murmur. ABDOMEN: Soft without focal masses or tenderness. Bowel sounds are present. No organomegaly is noted. EXTREMITIES: Without edema. LABORATORY DATA: Reviewed. CT scanning is reviewed, which showed no evidence of active bleeding. IMPRESSION: Gastrointestinal bleeding. This appears consistent with gastrointestinal bleeding from a diverticular source. At this point, there does not appear to be any recurrent bleeding, and her hematocrit has dropped somewhat but has not required blood transfusion. I would recommend monitoring her hematocrit. If she does show signs of active bleeding. I would obtain nuclear medicine red cell scanning, and if this was positive, she would need to be considered for angiography with Interventional Radiology. Thanks you for asking me to see her. I will follow her in the hospital with you. MD RACHEL Og/NATALYA / [phone]
--- NOTE | 2021-09-02 03:14 | PC.NURSE ---
pt oob coming back from the bathroom, states she had grossly bloody bm. Pt states she also had blood in her stool at approx 2300 but did not report to this rn. spoke to hospitalist who states he will order stat cbc. pt is a/o x3 does not appear pale, denies pain or weakness.
[2021-09-02 03:35] LABS: MANUAL DIFF FLAG NO
[2021-09-02 03:36] LABS: Basophils Absolute Auto 0.1 X10*3/uL (0.0-0.2); Basophils Percent Auto 0.8 % (0-2); Eosinophils Absolute Auto 0.2 X10*3/uL (0.0-0.4); Eosinophils Percent Auto 1.9 % (0-4); Hematocrit 28.9 % (37.0-47.0); Hemoglobin 8.8 g/dl (12.0-16.0); Imm Gran Abs Auto 0.05 X10*3/uL (0.00-0.03); Imm Gran Pct Auto 0.5 % (0.0-0.4); Lymphocytes Absolute Auto 3.4 X10*3/uL (1.2-4.9); Lymphocytes Percent Auto 36.2 % (20-40); Mean Corpuscular HGB Conc 30.4 g/dl (31.0-35.0); Mean Corpuscular Hemoglobin 26.4 pg (27.0-33.0); Mean Corpuscular Volume 86.8 fL (80.0-98.0); Mean Platelet Volume 10.6 fL (9.4-12.3); Monocytes Absolute Auto 0.8 X10*3/uL (0.1-1.2); Monocytes Percent Auto 8.6 % (2-11); Neutrophils Absolute Auto 4.9 x10*3/uL (2.0-8.3); Platelet Count 303 X10*3/uL (160-400); Red Blood Count 3.33 X10*6/uL (4.20-5.50); Red Cell Distribution Width 14.6 % (11.0-16.0); White Blood Count 9.3 X10*3/uL (4.8-10.8)
[2021-09-02] MEDS: Omeprazole 20 MG CAPSULE.DR PO (07:58)
[2021-09-02] MEDS: Vortioxetine Hydrobromide 20 MG TABLET PO (07:58)
[2021-09-02] MEDS: clonazePAM 1 MG TABLET PO ×3 (07:58→22:13)
[2021-09-02] MEDS: Ferrous Sulfate 324 MG TABLET.DR PO ×2 (07:58→19:00)
[2021-09-02] MEDS: Letrozole 2.5 MG TABLET PO (07:58)
--- NOTE | 2021-09-02 09:49 | PM.GIPN ---
Subjective Subjective Date of Service: 09/02/21 Interval History: no pain reports some red blood/clots earlier today Critical Care Time (minutes): 0 Physical Exam Vital Signs: Vital Signs: Last Vital Signs Temp 98.1 F 09/02/21 06:16 Pulse 97 09/02/21 06:16 Resp 12 09/02/21 06:16 BP 135/79 09/02/21 06:16 Pulse Ox 98 09/02/21 06:16 BMI result Body Mass Index 42.7 Const: General: cooperative GI: Other: abdomen is soft and nontender Objective Data Labs CBC & Chem 7: 09/02/21 03:21 09/01/21 06:13 Procedures Date of Service Date of Service: 09/02/21 Progress Note: A&P Assessment and plan (1) GI (gastrointestinal bleed): Status: Acute Plan hct stable monitor bleeding scan if significant bleeding Fall Risk Details Current Medications: Current Medications Acetaminophen (Acetaminophen 325 Mg Tablet) 650 mg PO Q6H PRN PRN Reason: Pain, Mild (Pain Scale 1-3) Atorvastatin Calcium (Atorvastatin Calcium 10 Mg Tablet) 10 mg PO BEDTIME [facility] Last Admin: 09/01/21 21:58 Dose: 10 mg Documented by: Clonazepam (Clonazepam 1 Mg Tablet) 1 mg PO TID [facility] Last Admin: 09/02/21 07:58 Dose: 1 mg Documented by: Ferrous Sulfate (Ferrous Sulfate 324 Mg Tablet.) 324 mg PO BIDWM [facility] Last Admin: 09/02/21 07:58 Dose: 324 mg Documented by: Fluticasone Propionate (Fluticasone Propionate 250 Mcg Blst.W.Dev) 1 puff INHALE RBID [facility] Last Admin: 09/02/21 08:19 Dose: Not Given Documented by: Letrozole (Letrozole 2.5 Mg Tablet) 2.5 mg PO DAILY [facility] Last Admin: 09/02/21 07:58 Dose: 2.5 mg Documented by: Lurasidone HCl (Lurasidone Hcl 80 Mg Tablet) 80 mg PO BEDTIME [facility] Last Admin: 09/01/21 21:53 Dose: 80 mg Documented by: Melatonin (Melatonin 3 Mg Tablet) 6 mg PO BEDTIME PRN PRN Reason: Insomnia Omeprazole (Omeprazole 20 Mg Capsule.) 20 mg PO DAILY@0630 [facility] Last Admin: 09/02/21 07:58 Dose: 20 mg Documented by: Pharmacy Consult (Consult Rx Perform Med Rec) 1 each MISCELLANE ONCE PRN PRN Reason: Consult order Senna (Sennosides 8.6 Mg Tablet) 17.2 mg PO BEDTIME PRN PRN Reason: Constipation Sodium Chloride (0.9 % Sodium Chloride Flush 3 Ml Syringe) 3 ml IVFLUSH QSHIFT [facility] Last Admin: 09/02/21 08:02 Dose: Not Given Documented by: Vortioxetine (Vortioxetine Hydrobromide 20 Mg Tablet) 20 mg PO DAILY [facility] Last Admin: 09/02/21 07:58 Dose: 20 mg Documented by: Zolpidem Tartrate (Zolpidem Tartrate 5 Mg Tablet) 5 mg PO BEDTIME PRN PRN Reason: Insomnia Time Spent With Patient Time: Total time spent is greater than 50% in coordination of care (as documented) at patient's floor/unit and/or counseling patient: Time with patient: less than 15 minutes Quality Stroke Does the patient have a stroke diagnosis?: No VTE Prior VTE?: No VTE Risk Level:: Medical - moderate - high VTE Device Contraindication: N/A - Device Ordered VTE Drug Contraindication: Treatment Not Indicated
--- NOTE | 2021-09-02 10:00 | MHC.CM.PN ---
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 PT DOES NOT HAVE A HCP BUT REPORTS SHE WOULD CONSIDER NAMING HER DAUGHTER, HIMANSHU VARNER [phone]. CM WILL CHECK IN WITH HER AT A LATER TIME TO ASSIST IN HCP COMPLETION OBSERVATION NOTICE DELIVERED CURRENT DC PLAN IS HOME WITH [employer]UMPTION OF TRA[employer]PERATOR [employer] FAMILY TO TRANSPORT
--- NOTE | 2021-09-02 10:40 | PC.NURSE ---
0758 Pt medicated per SEP. Pt is alert and oriented, Appears to be resting comfortably at this time and offering no complaints. Pt denies any current bleeding since the oncoming of this RNs shift. Pt aware to notify RN if she notices any bleeding. Pt medicated per SEP. Callbell and belongings within reach.
--- NOTE | 2021-09-02 11:21 | HO.PM.IMPN ---
Subjective Subjective Date of Service: 09/02/21 Interval History: F/u on rectal bleed, acute blood loss anemia, no pain reports some red blood/clots earlier overnight, none this morning. Review of Systems rectal bleed, no abodminal pain, no dizziness Physical Exam Vital Signs: Vital Signs: Last Vital Signs Temp 98.1 F 09/02/21 06:16 Pulse 97 09/02/21 06:16 Resp 12 09/02/21 06:16 BP 135/79 09/02/21 06:16 Pulse Ox 98 09/02/21 06:16 BMI result Body Mass Index 42.7 Const: Other: General: AO X 3, no acute distress Resp: CTA bilateral CVS: S1,S2,RRR GI: +BS, NT, no distention, rectal exam defered Skin: No rash Neuro: motor grossly intact Psych: appropriate affect Objective Data Active Medications Acetaminophen (Acetaminophen 325 Mg Tablet) 650 mg PO Q6H PRN PRN Reason: Pain, Mild (Pain Scale 1-3) Atorvastatin Calcium (Atorvastatin Calcium 10 Mg Tablet) 10 mg PO BEDTIME [facility] Last Admin: 09/01/21 21:58 Dose: 10 mg Documented by: FREDY Clonazepam (Clonazepam 1 Mg Tablet) 1 mg PO TID [facility] Last Admin: 09/02/21 07:58 Dose: 1 mg Documented by: RYANN Ferrous Sulfate (Ferrous Sulfate 324 Mg Tablet.Dr) 324 mg PO BIDWM [facility] Last Admin: 09/02/21 07:58 Dose: 324 mg Documented by: RYANN Fluticasone Propionate (Fluticasone Propionate 250 Mcg Blst.W.Dev) 1 puff INHALE RBID [facility] Last Admin: 09/02/21 08:19 Dose: Not Given Documented by: KEV Non-Admin Reason: Patient Refused Letrozole (Letrozole 2.5 Mg Tablet) 2.5 mg PO DAILY [facility] Last Admin: 09/02/21 07:58 Dose: 2.5 mg Documented by: RYANN Lurasidone HCl (Lurasidone Hcl 80 Mg Tablet) 80 mg PO BEDTIME [facility] Last Admin: 09/01/21 21:53 Dose: 80 mg Documented by: FREDY Melatonin (Melatonin 3 Mg Tablet) 6 mg PO BEDTIME PRN PRN Reason: Insomnia Omeprazole (Omeprazole 20 Mg Capsule.) 20 mg PO DAILY@0630 [facility] Last Admin: 09/02/21 07:58 Dose: 20 mg Documented by: RYANN Pharmacy Consult (Consult Rx Perform Med Rec) 1 each MISCELLANE ONCE PRN PRN Reason: Consult order Senna (Sennosides 8.6 Mg Tablet) 17.2 mg PO BEDTIME PRN PRN Reason: Constipation Sodium Chloride (0.9 % Sodium Chloride Flush 3 Ml Syringe) 3 ml IVFLUSH QSHIFT [facility] Last Admin: 09/02/21 08:02 Dose: Not Given Documented by: RYANN Non-Admin Reason: Med Not Available Vortioxetine (Vortioxetine Hydrobromide 20 Mg Tablet) 20 mg PO DAILY [facility] Last Admin: 09/02/21 07:58 Dose: 20 mg Documented by: RYANN Zolpidem Tartrate (Zolpidem Tartrate 5 Mg Tablet) 5 mg PO BEDTIME PRN PRN Reason: Insomnia Labs CBC & Chem 7: 09/02/21 03:21 09/01/21 06:13 Labs: Laboratory Results - last 24 hr 09/01/21 09/02/21 22:11 03:21 MCV 86.8 MCH 26.4 L MCHC 30.4 L RDW 14.6 Plt Count 303 MPV 10.6 Immature Gran % (Auto) 0.5 H Neut % (Auto) 52.0 Lymph % (Auto) 36.2 [place] % (Auto) 8.6 Eos % (Auto) 1.9 Baso % (Auto) 0.8 Lymph # (Auto) 3.4 [place] # (Auto) 0.8 Eos # (Auto) 0.2 Baso # (Auto) 0.1 Abs Immat Gran (auto) 0.05 H Absolute Neuts (auto) 4.9 Absolute Nucleated RBC 0.000 Nucleated RBC % (auto) 0.0 POC Glucose 107 Assessment and Plan (1) GI (gastrointestinal bleed): Status: Acute (2) Acute blood loss anemia: Status: Acute Plan 56F with a past medical history of asthma, GERD, history of GI bleed, 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 Admitted for following GI bleed: high suspicion for diverticular bleed Acute blood loss anemia sec GIB -Continue monitoring H/H and hemodynamicall -hold transufusion -Tag red cell scan with active bleed -GI following History of asthma: No exacerbation For all other chronic conditions, home medications continued DVT prophylaxis: SCD boots Code status: Full code, out of bed, ambulate Quality Stroke Does the patient have a stroke diagnosis?: No VTE Prior VTE?: No VTE Risk Level:: Medical - moderate - high VTE Device Contraindication: N/A - Device Ordered VTE Drug Contraindication: Treatment Not Indicated
--- NOTE | 2021-09-02 14:21 | PC.NURSE ---
Pt now c/o increased rectal bleeding and some dizziness, vss. Dr Ayoub made aware via [employer]. awaiting further orders.
--- NOTE | 2021-09-02 14:46 | PM.EVENT ---
Event Note Date of Service: 09/03/21 Event Note: Patient had another episode of rectal bleeding and felt dizzy +Orthostatic: Layin/65 P 98 Sittin/67 P 119 Standin/68 P127 Requesting bleeding scan
[2021-09-02] MEDS: Lactated Ringers 1,000 ML 150 ML IVCONT (15:19)
[2021-09-02] MEDS: 0.9 % Sodium Chloride Flush 3 ML SYRINGE IVFLUSH (15:24)
[2021-09-02 15:27] LABS: Hematocrit 27.4 % (37.0-47.0); Hemoglobin 8.4 g/dl (12.0-16.0)
--- NOTE | 2021-09-02 17:57 | PM.CNGS ---
History of Present Illness Consult details Consult date: 09/02/21 Requesting physician: Ho Ayoub Narrative: 56 year old female patient with a prior history of breast cancer and sigmoid resection in 2006 for diverticulitis presenting now with a 2 day history of bleeding per rectum. She denies nausea, vomiting, abdominal pain or distension. She does take baby ASA but denies other anticoagulants. She reports approximately 4-5 bloody BMs on Friday and several small BMs on Friday. Hgb on presentation was 10.6 and decreased to 8.[address] abdomen/pelvis revealed diverticulosis with no evidence of active bleeding. Bleeding scan reveals activity initially in the descending colon but the most intense activity in the distal transverse colon. She is intermittently tachycardic since her admission. Review of Systems Constitutional: Constitutional: Denies chills, Denies fever(s), Denies headache(s) and Denies poor appetite ENT: Denies dizziness and Denies headache(s) Cardiovascular: Cardiovascular: Denies chest pain, Reports rapid heart rate, Denies palpitations and Denies slow heart rate Respiratory: Respiratory: Denies chest congestion, Denies cough, Denies pain on inspiration and Denies wheezing Gastrointestinal: Gastrointestinal: Denies abdominal pain, Denies bloating, Reports hematochezia, Reports change in stool character, Denies constipation, Reports loose stools, Denies nausea, Denies vomiting and Denies hematemesis Musculoskeletal: Musculoskeletal: Denies back pain, Denies arthralgias, Denies joint swelling and Denies numbness Integumentary/Breasts: Skin/Breast: Denies change in pigmentation, Denies erythema and Denies rash Neurologic: Denies dizziness, Denies headache(s) and Denies numbness Psychiatric: Psychiatric: Reports anxiety and Denies depression Endocrine: Endocrine: Denies palpitations Hematologic/Lymphatic: Hematologic/Lymphatic: Denies easy bleeding, Denies easy bruising and Denies lymphadenopathy Allergic/Immunologic: Allergic/Immunologic: Denies wheezing PMFSH Past Medical History Medical History Anxiety Anxiety and depression Arthralgia Diverticulitis GERD (gastroesophageal reflux disease) GI bleed (~04/2019) History of atypical hyperplasia of breast (~2008) Kidney stones Lobular carcinoma in situ (LCIS) of right breast (~11/2018) Obstructive sleep apnea Pulmonary embolism (~1982) Tubular adenoma (~2005) Family History Family History Father Colon cancer Maternal Aunt Stomach cancer Paternal Aunt Colon cancer Mother Diabetes Heart disease Surgical History Surgical History H/O breast biopsy History of colonoscopy History of laparoscopic cholecystectomy Previous section Social History Social History Are you a primary point of care specialist to a significant other at home: No Alcohol intake: never Patient Tobacco Use Status: Never used Tobacco Smoked in Last 30 Days: No Use of substances other than those prescribed or required for medical reasons: No Advance Directives: No service: No Current occupational status: unemployed Meds Allergies Allergy/AdvReac Type Severity Reaction Status Date / Time No Known Allergies Allergy Unknown Verified 05/02/21 16:07 Active Medications: Current Medications Acetaminophen (Acetaminophen 325 Mg Tablet) 650 mg PO Q6H PRN PRN Reason: Pain, Mild (Pain Scale 1-3) Atorvastatin Calcium (Atorvastatin Calcium 10 Mg Tablet) 10 mg PO BEDTIME [facility] Last Admin: 09/02/21 22:13 Dose: 10 mg Documented by: Clonazepam (Clonazepam 1 Mg Tablet) 1 mg PO TID [facility] Last Admin: 09/02/21 22:13 Dose: 1 mg Documented by: Ferrous Sulfate (Ferrous Sulfate 324 Mg Tablet.Dr) 324 mg PO BIDWM [facility] Last Admin: 09/02/21 19:00 Dose: 324 mg Documented by: Fluticasone Propionate (Fluticasone Propionate 250 Mcg Blst.W.Dev) 1 puff INHALE RBID [facility] Last Admin: 09/02/21 20:30 Dose: Not Given Documented by: Lactated Ringer's (Lr) 1,000 mls @ 150 mls/hr IVCONT .Q6H40M [facility] Last Admin: 09/03/21 01:00 Dose: 150 mls/hr Documented by: Letrozole (Letrozole 2.5 Mg Tablet) 2.5 mg PO DAILY [facility] Last Admin: 09/02/21 07:58 Dose: 2.5 mg Documented by: Lurasidone HCl (Lurasidone Hcl 80 Mg Tablet) 80 mg PO BEDTIME [facility] Last Admin: 09/02/21 22:13 Dose: 80 mg Documented by: Melatonin (Melatonin 3 Mg Tablet) 6 mg PO BEDTIME PRN PRN Reason: Insomnia Omeprazole (Omeprazole 20 Mg Capsule.) 20 mg PO DAILY@0630 [facility] Last Admin: 09/02/21 07:58 Dose: 20 mg Documented by: Pharmacy Consult (Consult Rx Perform Med Rec) 1 each MISCELLANE ONCE PRN PRN Reason: Consult order Senna (Sennosides 8.6 Mg Tablet) 17.2 mg PO BEDTIME PRN PRN Reason: Constipation Sodium Chloride (0.9 % Sodium Chloride Flush 3 Ml Syringe) 3 ml IVFLUSH QSHIFT [facility] Last Admin: 09/03/21 01:00 Dose: 3 ml Documented by: Vortioxetine (Vortioxetine Hydrobromide 20 Mg Tablet) 20 mg PO DAILY [facility] Last Admin: 09/02/21 07:58 Dose: 20 mg Documented by: Zolpidem Tartrate (Zolpidem Tartrate 5 Mg Tablet) 5 mg PO BEDTIME PRN PRN Reason: Insomnia Home Medications Medication Instructions Recorded Confirmed Last Taken Type atorvastatin 10 mg tablet 10 mg PO BEDTIME 05/01/20 09/01/21 08/31/21 History ferrous sulfate 325 mg (65 mg 325 mg PO BID 05/01/20 09/01/21 08/31/21 History iron) tablet (iron) letrozole 2.5 mg tablet 2.5 mg PO DAILY 05/01/20 09/01/21 08/31/21 History lurasidone 80 mg tablet (Latuda) 80 mg PO BEDTIME 05/01/20 09/01/21 08/31/21 History melatonin 5 mg tablet 5 mg PO BEDTIME 05/01/20 09/01/21 08/31/21 History omeprazole 20 mg capsule,delayed 20 mg PO DAILY 05/01/20 09/01/21 08/31/21 History release vortioxetine 20 mg tablet 20 mg PO DAILY 05/01/20 09/01/21 08/31/21 History (Trintellix) zolpidem 10 mg tablet (Ambien) 10 mg PO BEDTIME PRN 07/11/20 09/01/21 Unknown History aspirin 81 mg tablet,delayed 1 tab PO DAILY 09/01/21 09/01/21 08/31/21 History release clonazepam 1 mg tablet 1 tab PO TID PRN 09/01/21 09/01/21 Unknown History famotidine 40 mg tablet 1 tab PO BEDTIME 09/01/21 09/01/21 08/31/21 History fluticasone propionate 220 1 puff PO BID 09/01/21 09/01/21 08/31/21 History mcg/actuation HFA aerosol inhaler (Flovent HFA) Physical Exam Vital Signs: Vital Signs: Last Vital Signs Temp 98.4 F 09/02/21 21:45 Pulse 101 H 09/02/21 21:45 Resp 23 H 09/02/21 21:45 BP 118/71 09/02/21 21:45 Pulse Ox 98 09/02/21 21:45 BMI result Body Mass Index 42.7 Const: General: cooperative, comfortable and well developed Nutritional Appearance: well nourished Orientation/consciousness: patient oriented x3 Limitations: no limitations HENMT: Head: Yes normocephalic and Yes atraumatic Ears: hearing grossly normal bilaterally Eyes: Sclerae: sclerae normal EOM: EOMs intact bilaterally Neck: Neck: Yes normal visual inspection and Yes no JVD Resp: Effort & Inspection: normal respiratory effort, no cough, no respiratory distress and no stridor Cardio: Jugular venous distension: no JVD GI: Inspection: Yes normal to inspection Palpation (GI): Soft to palpation, nontender, no guarding and not rigid Auscultation: normal bowel sounds Skin: General skin exam: turgor normal, dry skin, no ecchymosis, no erythema and no jaundice Rashes: no rashes Neuro: General: patient oriented x3 and no focal motor deficits Extrem: General: Yes full ROM and Yes no clubbing, cyanosis or edema Psych: Appearance: grossly normal Results Labs Result diagrams: 09/02/21 14:50 09/01/21 06:13 Labs: Abnormal lab results 09/02/21 Range/Units 14:50 Hgb 8.4 L (12.0-16.0) g/dl Hct 27.4 L (37.0-47.0) % Short CBC 09/02/21 Range/Units 14:50 Hgb 8.4 L (12.0-16.0) g/dl Hct 27.4 L (37.0-47.0) % All other labs normal. Imaging Abdomen CT scan report/results: image reviewed CT scan - pelvis: image reviewed Additional studies: Bleeding scan reviewed Assessment and Plan (1) Acute blood loss anemia: Status: Acute (2) GI (gastrointestinal bleed): Status: Acute Plan 56 year old female patient presenting with a lower GI bleed presumably from a diverticulum in the distal transverse or left colon as noted in the bleeding scan. Her bleed appears to be persistent and may benefit from angiography with embolization. Colectomy may be necessary if this is unable to control the bleeding. Will continue to monitor. Procedures Date of Service Date of Service: 09/02/21
[2021-09-02] MEDS: Lurasidone HCl 80 MG TABLET PO (22:13)
[2021-09-02] MEDS: Atorvastatin Calcium 10 MG TABLET PO (22:13)
[2021-09-03] VITALS (20 sets, daily range): BP systolic 108–150; BP diastolic 49–79; PULSE 92–105; RESP 13–24; TEMP 36.4–36.8; O2SAT 88–99
[2021-09-03] MEDS: 0.9 % Sodium Chloride Flush 3 ML SYRINGE IVFLUSH (01:00)
[2021-09-03] MEDS: Lactated Ringers 1,000 ML 150 ML IVCONT ×4 (01:00→21:37)
[2021-09-03] MEDS: Omeprazole 20 MG CAPSULE.DR PO (06:23)
[2021-09-03] MEDS: Letrozole 2.5 MG TABLET PO (07:10)
[2021-09-03] MEDS: Ferrous Sulfate 324 MG TABLET.DR PO (07:11)
[2021-09-03] MEDS: clonazePAM 1 MG TABLET PO ×3 (07:11→21:39)
[2021-09-03] MEDS: Vortioxetine Hydrobromide 20 MG TABLET PO (07:12)
--- NOTE | 2021-09-03 08:29 | PM.PNGS ---
Subjective Subjective Date of Service: 09/03/21 Interval history: still had some dark bloody stools this AM denies abdl pain Physical Exam Vital Signs: Vital Signs: Last Vital Signs Temp 97.6 F 09/03/21 07:18 Pulse 104 H 09/03/21 07:18 Resp 18 09/03/21 07:18 BP 120/65 09/03/21 07:18 Pulse Ox 99 09/03/21 07:18 BMI result Body Mass Index 42.7 Const: General: comfortable and no acute distress Resp: Effort & Inspection: normal respiratory effort Cardio: Other: tachycardic GI: Palpation (GI): Soft to palpation, not firm and nontender Objective Data Active Medications Acetaminophen (Acetaminophen 325 Mg Tablet) 650 mg PO Q6H PRN PRN Reason: Pain, Mild (Pain Scale 1-3) Atorvastatin Calcium (Atorvastatin Calcium 10 Mg Tablet) 10 mg PO BEDTIME [facility] Last Admin: 09/02/21 22:13 Dose: 10 mg Documented by: LINDA Clonazepam (Clonazepam 1 Mg Tablet) 1 mg PO TID [facility] Last Admin: 09/03/21 07:11 Dose: 1 mg Documented by: DIANA Ferrous Sulfate (Ferrous Sulfate 324 Mg Tablet.Dr) 324 mg PO BIDWM [facility] Last Admin: 09/03/21 07:11 Dose: 324 mg Documented by: DIANA Fluticasone Propionate (Fluticasone Propionate 250 Mcg Blst.W.Dev) 1 puff INHALE RBID [facility] Last Admin: 09/03/21 07:28 Dose: Not Given Documented by: KEV Non-Admin Reason: Patient Refused Lactated Ringer's (Lr) 1,000 mls @ 150 mls/hr IVCONT .Q6H40M [facility] Last Admin: 09/03/21 06:25 Dose: 150 mls/hr Documented by: LINDA Letrozole (Letrozole 2.5 Mg Tablet) 2.5 mg PO DAILY [facility] Last Admin: 09/03/21 07:10 Dose: 2.5 mg Documented by: DIANA Lurasidone HCl (Lurasidone Hcl 80 Mg Tablet) 80 mg PO BEDTIME [facility] Last Admin: 09/02/21 22:13 Dose: 80 mg Documented by: LINDA Melatonin (Melatonin 3 Mg Tablet) 6 mg PO BEDTIME PRN PRN Reason: Insomnia Omeprazole (Omeprazole 20 Mg Capsule.) 20 mg PO DAILY@0630 [facility] Last Admin: 09/03/21 06:23 Dose: 20 mg Documented by: LINDA Pharmacy Consult (Consult Rx Perform Med Rec) 1 each MISCELLANE ONCE PRN PRN Reason: Consult order Senna (Sennosides 8.6 Mg Tablet) 17.2 mg PO BEDTIME PRN PRN Reason: Constipation Sodium Chloride (0.9 % Sodium Chloride Flush 3 Ml Syringe) 3 ml IVFLUSH QSHIFT [facility] Last Admin: 09/03/21 07:04 Dose: Not Given Documented by: DIANA Non-Admin Reason: Patient Asleep Vortioxetine (Vortioxetine Hydrobromide 20 Mg Tablet) 20 mg PO DAILY [facility] Last Admin: 09/03/21 07:12 Dose: 20 mg Documented by: DIANA Zolpidem Tartrate (Zolpidem Tartrate 5 Mg Tablet) 5 mg PO BEDTIME PRN PRN Reason: Insomnia Labs CBC & Chem 7: 09/02/21 14:50 09/01/21 06:13 Procedures Date of Service Date of Service: 09/03/21 Progress Note: A&P Assessment and plan (1) GI (gastrointestinal bleed): Status: Acute Assessment and Plan: still had some maroon bloody stools likely diverticular in origin no colonic masses obvious on CT recommend angiogram which may be both diagnostic for localization and therapeutic, with embolization monitor H/H abd soft and benign will follow Fall Risk Details Current Medications: Current Medications Acetaminophen (Acetaminophen 325 Mg Tablet) 650 mg PO Q6H PRN PRN Reason: Pain, Mild (Pain Scale 1-3) Atorvastatin Calcium (Atorvastatin Calcium 10 Mg Tablet) 10 mg PO BEDTIME [facility] Last Admin: 09/02/21 22:13 Dose: 10 mg Documented by: Clonazepam (Clonazepam 1 Mg Tablet) 1 mg PO TID [facility] Last Admin: 09/03/21 07:11 Dose: 1 mg Documented by: Ferrous Sulfate (Ferrous Sulfate 324 Mg Tablet.) 324 mg PO BIDWM [facility] Last Admin: 09/03/21 07:11 Dose: 324 mg Documented by: Fluticasone Propionate (Fluticasone Propionate 250 Mcg Blst.W.Dev) 1 puff INHALE RBID [facility] Last Admin: 09/03/21 07:28 Dose: Not Given Documented by: Lactated Ringer's (Lr) 1,000 mls @ 150 mls/hr IVCONT .Q6H40M [facility] Last Admin: 09/03/21 06:25 Dose: 150 mls/hr Documented by: Letrozole (Letrozole 2.5 Mg Tablet) 2.5 mg PO DAILY [facility] Last Admin: 09/03/21 07:10 Dose: 2.5 mg Documented by: Lurasidone HCl (Lurasidone Hcl 80 Mg Tablet) 80 mg PO BEDTIME [facility] Last Admin: 09/02/21 22:13 Dose: 80 mg Documented by: Melatonin (Melatonin 3 Mg Tablet) 6 mg PO BEDTIME PRN PRN Reason: Insomnia Omeprazole (Omeprazole 20 Mg Capsule.Dr) 20 mg PO DAILY@0630 [facility] Last Admin: 09/03/21 06:23 Dose: 20 mg Documented by: Pharmacy Consult (Consult Rx Perform Med Rec) 1 each MISCELLANE ONCE PRN PRN Reason: Consult order Senna (Sennosides 8.6 Mg Tablet) 17.2 mg PO BEDTIME PRN PRN Reason: Constipation Sodium Chloride (0.9 % Sodium Chloride Flush 3 Ml Syringe) 3 ml IVFLUSH QSHIFT [facility] Last Admin: 09/03/21 07:04 Dose: Not Given Documented by: Vortioxetine (Vortioxetine Hydrobromide 20 Mg Tablet) 20 mg PO DAILY [facility] Last Admin: 09/03/21 07:12 Dose: 20 mg Documented by: Zolpidem Tartrate (Zolpidem Tartrate 5 Mg Tablet) 5 mg PO BEDTIME PRN PRN Reason: Insomnia Time Spent With Patient Time: Total time spent is greater than 50% in coordination of care (as documented) at patient's floor/unit and/or counseling patient: Time with patient: 15 - 24 minutes Quality Stroke Does the patient have a stroke diagnosis?: No VTE Prior VTE?: No VTE Risk Level:: Medical - moderate - high VTE Device Contraindication: N/A - Device Ordered VTE Drug Contraindication: Treatment Not Indicated
[2021-09-03 08:48] LABS: Hematocrit 22.5 % (37.0-47.0)
[2021-09-03 08:50] LABS: Hemoglobin 6.8 g/dl (12.0-16.0)
[2021-09-03 08:55] LABS: INTERNATIONAL NORM RATIO 1.1 (0.9-1.1); Prothrombin Time 12.1 SEC (9.9-13.0)
--- NOTE | 2021-09-03 09:58 | PM.GIPN ---
Subjective Subjective Date of Service: 09/03/21 Interval History: no abd pain still has bloody bm's Critical Care Time (minutes): 0 Physical Exam Vital Signs: Vital Signs: Last Vital Signs Temp 98.3 F 09/03/21 09:52 Pulse 105 H 09/03/21 09:52 Resp 20 09/03/21 09:52 BP 126/53 L 09/03/21 09:52 Pulse Ox 99 09/03/21 07:18 BMI result Body Mass Index 42.7 Const: General: comfortable GI: Other: abdomen is soft and nontender Objective Data Labs CBC & Chem 7: 09/03/21 08:02 09/01/21 06:13 Labs: Laboratory Results - last 24 hr 09/01/21 09/02/21 09/03/21 00:00 14:50 08:02 Hgb 8.4 L 6.8 L* Hct 27.4 L 22.5 L PT INR Blood Type O Positive Antibody Screen NEGATIVE Crossmatch See Detail 09/03/21 08:02 Hgb Hct PT 12.1 INR 1.1 Blood Type Antibody Screen Crossmatch Procedures Date of Service Date of Service: 09/03/21 Progress Note: A&P Assessment and plan (1) GI (gastrointestinal bleed): Status: Acute Assessment and Plan: recommend angiography based on bleeding scan results. transfuse prn Fall Risk Details Current Medications: Current Medications Acetaminophen (Acetaminophen 325 Mg Tablet) 650 mg PO Q6H PRN PRN Reason: Pain, Mild (Pain Scale 1-3) Atorvastatin Calcium (Atorvastatin Calcium 10 Mg Tablet) 10 mg PO BEDTIME [facility] Last Admin: 09/02/21 22:13 Dose: 10 mg Documented by: Clonazepam (Clonazepam 1 Mg Tablet) 1 mg PO TID [facility] Last Admin: 09/03/21 07:11 Dose: 1 mg Documented by: Ferrous Sulfate (Ferrous Sulfate 324 Mg Tablet.Dr) 324 mg PO BIDWM [facility] Last Admin: 09/03/21 07:11 Dose: 324 mg Documented by: Fluticasone Propionate (Fluticasone Propionate 250 Mcg Blst.W.Dev) 1 puff INHALE RBID [facility] Last Admin: 09/03/21 07:28 Dose: Not Given Documented by: Lactated Ringer's (Lr) 1,000 mls @ 150 mls/hr IVCONT .Q6H40M [facility] Last Admin: 09/03/21 06:25 Dose: 150 mls/hr Documented by: Letrozole (Letrozole 2.5 Mg Tablet) 2.5 mg PO DAILY [facility] Last Admin: 09/03/21 07:10 Dose: 2.5 mg Documented by: Lurasidone HCl (Lurasidone Hcl 80 Mg Tablet) 80 mg PO BEDTIME [facility] Last Admin: 09/02/21 22:13 Dose: 80 mg Documented by: Melatonin (Melatonin 3 Mg Tablet) 6 mg PO BEDTIME PRN PRN Reason: Insomnia Omeprazole (Omeprazole 20 Mg Capsule.Dr) 20 mg PO DAILY@0630 [facility] Last Admin: 09/03/21 06:23 Dose: 20 mg Documented by: Pharmacy Consult (Consult Rx Perform Med Rec) 1 each MISCELLANE ONCE PRN PRN Reason: Consult order Senna (Sennosides 8.6 Mg Tablet) 17.2 mg PO BEDTIME PRN PRN Reason: Constipation Sodium Chloride (0.9 % Sodium Chloride Flush 3 Ml Syringe) 3 ml IVFLUSH QSHIFT [facility] Last Admin: 09/03/21 07:04 Dose: Not Given Documented by: Vortioxetine (Vortioxetine Hydrobromide 20 Mg Tablet) 20 mg PO DAILY [facility] Last Admin: 09/03/21 07:12 Dose: 20 mg Documented by: Zolpidem Tartrate (Zolpidem Tartrate 5 Mg Tablet) 5 mg PO BEDTIME PRN PRN Reason: Insomnia Time Spent With Patient Time: Total time spent is greater than 50% in coordination of care (as documented) at patient's floor/unit and/or counseling patient: Time with patient: less than 15 minutes Quality Stroke Does the patient have a stroke diagnosis?: No VTE Prior VTE?: No VTE Risk Level:: Medical - moderate - high VTE Device Contraindication: N/A - Device Ordered VTE Drug Contraindication: Treatment Not Indicated
--- NOTE | 2021-09-03 12:32 | PC.NURSE ---
pt now reports itchiness, hives noted all over body. md aware will come down. verbal benadryl 25mg iv order
--- NOTE | 2021-09-03 12:36 | PC.NURSE ---
plan for pt to be admitted to [facility] and get a bed upstairs so pt can be on tele for transport to [facility]. per us pt was in v fib run x 2
--- NOTE | 2021-09-03 13:00 | PC.NURSE ---
PT CONTINUES WITH WIDESPREAD HIVES. SHE DENIES BACK PAIN NO CHESTPAIN OR SOB. SHE IS HYPOXIC 87-88% AND HAS BEEN PLACED ON A GAUTAM CANNULA AND IS SLOWLY IMPROVING INTO THE LOW 90'S AT 6L FLOW
[2021-09-03] MEDS: methylPREDNISolone Sod Succ 125 MG/2 ML VIAL IVPUSH (13:15)
--- NOTE | 2021-09-03 13:18 | PC.NURSE ---
report given to s3
--- NOTE | 2021-09-03 13:34 | PC.NURSE ---
second unit started at this time. pt denies having any complaints at this time. family at bedside. md connolly at bedside to see pt.
--- NOTE | 2021-09-03 14:11 | HO.PM.IMPN ---
Subjective Subjective Date of Service: 09/03/21 Interval History: Seen in f/u for acute blood loss anemia, rectal bleeding. Pt reported no further bleeding since afternoon yesterday. But had some maroon stool today. H/H has dropped to 6.8 now from 8.4 yesterday. Blood pressure seem Ok,but has had periods of tachyardia.. She is transfused 2 units, following the first units broke into hives.. and given Benadryl and steroid Review of Systems rectal bleed, no abodminal pain, no dizziness Physical Exam Vital Signs: Vital Signs: Last Vital Signs Temp 97.8 F 09/03/21 13:50 Pulse 95 09/03/21 13:47 Resp 18 09/03/21 13:47 BP 150/79 H 09/03/21 13:47 Pulse Ox 88 L 09/03/21 13:01 BMI result Body Mass Index 42.7 Const: Other: General: AO X 3, no acute distress Resp: CTA bilateral CVS: S1,S2,RRR GI: +BS, NT, no distention, rectal exam defered Skin: No rash Neuro: motor grossly intact Psych: appropriate affect Objective Data Active Medications Acetaminophen (Acetaminophen 325 Mg Tablet) 650 mg PO Q6H PRN PRN Reason: Pain, Mild (Pain Scale 1-3) Atorvastatin Calcium (Atorvastatin Calcium 10 Mg Tablet) 10 mg PO BEDTIME [facility] Last Admin: 09/02/21 22:13 Dose: 10 mg Documented by: LINDA Clonazepam (Clonazepam 1 Mg Tablet) 1 mg PO TID [facility] Last Admin: 09/03/21 07:11 Dose: 1 mg Documented by: DIANA Diphenhydramine HCl (Diphenhydramine Hcl 50 Mg/Ml Vial) 25 mg IVPUSH Q6H PRN PRN Reason: itch and hives Ferrous Sulfate (Ferrous Sulfate 324 Mg Tablet.) 324 mg PO BIDWM [facility] Last Admin: 09/03/21 07:11 Dose: 324 mg Documented by: DIANA Fluticasone Propionate (Fluticasone Propionate 250 Mcg Blst.W.Dev) 1 puff INHALE RBID [facility] Last Admin: 09/03/21 07:28 Dose: Not Given Documented by: KEV Non-Admin Reason: Patient Refused Lactated Ringer's (Lr) 1,000 mls @ 150 mls/hr IVCONT .Q6H40M [facility] Last Admin: 09/03/21 06:25 Dose: 150 mls/hr Documented by: LINDA Letrozole (Letrozole 2.5 Mg Tablet) 2.5 mg PO DAILY [facility] Last Admin: 09/03/21 07:10 Dose: 2.5 mg Documented by: DIANA Lurasidone HCl (Lurasidone Hcl 80 Mg Tablet) 80 mg PO BEDTIME [facility] Last Admin: 09/02/21 22:13 Dose: 80 mg Documented by: LINDA Melatonin (Melatonin 3 Mg Tablet) 6 mg PO BEDTIME PRN PRN Reason: Insomnia Omeprazole (Omeprazole 20 Mg Capsule.Dr) 20 mg PO DAILY@0630 [facility] Last Admin: 09/03/21 06:23 Dose: 20 mg Documented by: LINDA Pharmacy Consult (Consult Rx Perform Med Rec) 1 each MISCELLANE ONCE PRN PRN Reason: Consult order Senna (Sennosides 8.6 Mg Tablet) 17.2 mg PO BEDTIME PRN PRN Reason: Constipation Sodium Chloride (0.9 % Sodium Chloride Flush 3 Ml Syringe) 3 ml IVFLUSH QSHIFT [facility] Last Admin: 09/03/21 07:04 Dose: Not Given Documented by: DIANA Non-Admin Reason: Patient Asleep Vortioxetine (Vortioxetine Hydrobromide 20 Mg Tablet) 20 mg PO DAILY [facility] Last Admin: 09/03/21 07:12 Dose: 20 mg Documented by: DIANA Zolpidem Tartrate (Zolpidem Tartrate 5 Mg Tablet) 5 mg PO BEDTIME PRN PRN Reason: Insomnia Labs CBC & Chem 7: 09/03/21 08:02 09/01/21 06:13 Labs: Laboratory Results - last 24 hr 09/01/21 09/03/21 00:00 08:02 PT 12.1 INR 1.1 Blood Type O Positive Antibody Screen NEGATIVE Crossmatch See Detail Assessment and Plan (1) GI (gastrointestinal bleed): Status: Acute (2) Acute blood loss anemia: Status: Acute Plan 56F with a past medical history of asthma, GERD, history of GI bleed, 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 Admitted for following GI bleed: high suspicion for diverticular bleed Acute blood loss anemia sec to the above ..Positive bleeding scan: Gastric intestinal hemorrhage in the left colon. Initial activity seen in the mid descending colon but the most intense area of activity present in the mid through distal transverse colon? -Transfuse 2 units -Following, -We are unable to do angiogram here. -I tried transfering to [facility]--Not taking transfers, [facility] No bed,[facility] will put on waiting list, [facility] will reassess for acceptance -I have discussed with repair mechanic about monitoring in ICU for closer hemodynamic monitoring Consider repeating bleeding scan History of asthma: No exacerbation For all other chronic conditions, home medications continued DVT prophylaxis: SCD boots Code status: Full code, out of bed, ambulate Quality Stroke Does the patient have a stroke diagnosis?: No VTE Prior VTE?: No VTE Risk Level:: Medical - moderate - high VTE Device Contraindication: N/A - Device Ordered VTE Drug Contraindication: Treatment Not Indicated
--- NOTE | 2021-09-03 14:19 | PC.NURSE ---
blood bank notified that kevyn will be drawn after the second unit of blood d/t no reaction at this time. plan to work up kevyn and redraw for a t&s s/p second unit of blood. pt remains asymptomatic at this time.
--- NOTE | 2021-09-03 14:21 | P.CONCC_ITS ---
History of Present Illness Data of Consult Service Date: 09/03/21 Requesting physician: Ho Ayoub Primary Care Provider: MD CARMEN Sousa Reason for consult: acute GI blood loss anemia with hemodynamic hypotension 56-year-old morbidly obese female with a very remote history of pulmonary embolism nearly 40 years ago presents with a painless GI bleed with hypotension and a positive red cell scan in the distal transverse colon as the her original spot with blood noted in the upper portion of the descending colon and patient did not initially required transfusion during our 48 hour observation she had an other bleed developed and orthostatic symptoms and blood pressure and heart rate change without any secondary ill effect currently responding to volume and blood replacement only she developed hives after the initial unit and a repeat a CBC coagulation profile workup for hemolysis and an a relook by the blood bank at that 1st unit are currently in affect bedside echo shows normal LV and RV size and function 60-70% ejection fraction no primary valve or pericardial disease and a fairly flat IVC with complete flattening with minimal inspiratory effort implying still persistent hypovolemia I have notify both the GI and general surgical consult and attempted phone calls were made to multiple institutions within our reach none of whom had any beds to offer us Review of Systems Review of Systems: essentially negative including cardiovascular Yes all other systems are reviewed and are negative PMF Past Medical History Medical History (Updated 09/03/21 @ 15:34 by Pasha Baugh MD) Anxiety Anxiety and depression Arthralgia Diverticulitis GERD (gastroesophageal reflux disease) GI bleed (~04/2019) History of atypical hyperplasia of breast (~2008) Kidney stones Lobular carcinoma in situ (LCIS) of right breast (~11/2018) Morbid obesity Obstructive sleep apnea Pulmonary embolism (~1982) Tubular adenoma (~2005) Family History Family History Father Colon cancer Maternal Aunt Stomach cancer Paternal Aunt Colon cancer Mother Diabetes Heart disease Surgical History Surgical History H/O breast biopsy History of colonoscopy History of laparoscopic cholecystectomy Previous section Social History Social History Household Members: Family Housing: Apartment Are you a primary child care assistant to a significant other at home: No Do you presently have visiting nurse or other home services: Yes ([facility] - [facility]) Alcohol intake: never Patient Tobacco Use Status: Never used Tobacco Smoked in Last 30 Days: No Use of substances other than those prescribed or required for medical reasons: No Have you been hit, kicked, punched, or otherwise hurt by someone within the past year? If so, by whom?: No Do you feel safe in your current relationship?: Yes Is there a partner from a previous relationship who is making you feel unsafe now?: No Are you made to feel afraid or neglected: No Spiritual Healthcare Practices: NONE PER PATIENT Taoist Healthcare Practices: NONE PER PATIENT Cultural Healthcare Practices: NONE PER PATIENT Advance Directives: No Do you have thoughts of harming others: None Do you have a plan to hurt others: No Plan Recently lost weight without trying: No Eating poorly because of decreased appetite: No Nutrition Risks: No Nutritional Risk Patient : No : No Poor oral hygiene: Yes service: No Current occupational status: unemployed Meds Allergies Allergy/AdvReac Type Severity Reaction Status Date / Time No Known Allergies Allergy Unknown Verified 05/02/21 16:07 Active Medications: Current Medications Acetaminophen (Acetaminophen 325 Mg Tablet) 650 mg PO Q6H PRN PRN Reason: Pain, Mild (Pain Scale 1-3) Atorvastatin Calcium (Atorvastatin Calcium 10 Mg Tablet) 10 mg PO BEDTIME [facility] Last Admin: 09/02/21 22:13 Dose: 10 mg Documented by: Clonazepam (Clonazepam 1 Mg Tablet) 1 mg PO TID [facility] Last Admin: 09/03/21 07:11 Dose: 1 mg Documented by: Diphenhydramine HCl (Diphenhydramine Hcl 50 Mg/Ml Vial) 25 mg IVPUSH Q6H PRN PRN Reason: itch and hives Ferrous Sulfate (Ferrous Sulfate 324 Mg Tablet.Dr) 324 mg PO BIDWM [facility] Last Admin: 09/03/21 07:11 Dose: 324 mg Documented by: Fluticasone Propionate (Fluticasone Propionate 250 Mcg Blst.W.Dev) 1 puff INHALE RBID [facility] Last Admin: 09/03/21 07:28 Dose: Not Given Documented by: Lactated Ringer's (Lr) 1,000 mls @ 150 mls/hr IVCONT .Q6H40M [facility] Last Admin: 09/03/21 06:25 Dose: 150 mls/hr Documented by: Letrozole (Letrozole 2.5 Mg Tablet) 2.5 mg PO DAILY [facility] Last Admin: 09/03/21 07:10 Dose: 2.5 mg Documented by: Lurasidone HCl (Lurasidone Hcl 80 Mg Tablet) 80 mg PO BEDTIME [facility] Last Admin: 09/02/21 22:13 Dose: 80 mg Documented by: Melatonin (Melatonin 3 Mg Tablet) 6 mg PO BEDTIME PRN PRN Reason: Insomnia Omeprazole (Omeprazole 20 Mg Capsule.) 20 mg PO DAILY@0630 [facility] Last Admin: 09/03/21 06:23 Dose: 20 mg Documented by: Pharmacy Consult (Consult Rx Perform Med Rec) 1 each MISCELLANE ONCE PRN PRN Reason: Consult order Senna (Sennosides 8.6 Mg Tablet) 17.2 mg PO BEDTIME PRN PRN Reason: Constipation Sodium Chloride (0.9 % Sodium Chloride Flush 3 Ml Syringe) 3 ml IVFLUSH QSHIFT [facility] Last Admin: 09/03/21 07:04 Dose: Not Given Documented by: Vortioxetine (Vortioxetine Hydrobromide 20 Mg Tablet) 20 mg PO DAILY [facility] Last Admin: 09/03/21 07:12 Dose: 20 mg Documented by: Zolpidem Tartrate (Zolpidem Tartrate 5 Mg Tablet) 5 mg PO BEDTIME PRN PRN Reason: Insomnia Home Medications Medication Instructions Recorded Confirmed Last Taken Type atorvastatin 10 mg tablet 10 mg PO BEDTIME 05/01/20 09/01/21 08/31/21 History ferrous sulfate 325 mg (65 mg 325 mg PO BID 05/01/20 09/01/21 08/31/21 History iron) tablet (iron) letrozole 2.5 mg tablet 2.5 mg PO DAILY 05/01/20 09/01/21 08/31/21 History lurasidone 80 mg tablet (Latuda) 80 mg PO BEDTIME 05/01/20 09/01/21 08/31/21 His tory melatonin 5 mg tablet 5 mg PO BEDTIME 05/01/20 09/01/21 08/31/21 History omeprazole 20 mg capsule,delayed 20 mg PO DAILY 05/01/20 09/01/21 08/31/21 History release vortioxetine 20 mg tablet 20 mg PO DAILY 05/01/20 09/01/21 08/31/21 History (Trintellix) zolpidem 10 mg tablet (Ambien) 10 mg PO BEDTIME PRN 07/11/20 09/01/21 Unknown History aspirin 81 mg tablet,delayed 1 tab PO DAILY 09/01/21 09/01/21 08/31/21 History release clonazepam 1 mg tablet 1 tab PO TID PRN 09/01/21 09/01/21 Unknown History famotidine 40 mg tablet 1 tab PO BEDTIME 09/01/21 09/01/21 08/31/21 History fluticasone propionate 220 1 puff PO BID 09/01/21 09/01/21 08/31/21 History mcg/actuation HFA aerosol inhaler (Flovent HFA) Physical Exam Vital Signs: Vital Signs: Last Vital Signs Temp 97.8 F 09/03/21 13:50 Pulse 95 09/03/21 13:47 Resp 18 09/03/21 13:47 BP 150/79 H 09/03/21 13:47 Pulse Ox 88 L 09/03/21 13:01 BMI result Body Mass Index 42.7 supine blood pressure without symptom 108/49 and a mean of 70 in sinus rhythm at a rate of 97 with oxygen saturation on room air of 95% neurologic nonfocal cardiovascular class 1 by bedside echo lungs clear without adventitious sounds or respiratory effort abdomen soft with no organom egaly no peripheral edema warm well perfused no livedo good peripheral pulses Results Labs CBC & Chem 7: 09/03/21 08:02 09/01/21 06:13 Labs: Short CBC 09/02/21 09/03/21 Range/Units 14:50 08:02 Hgb 8.4 L 6.8 L* (12.0-16.0) g/dl Hct 27.4 L 22.5 L (37.0-47.0) % Assessment and Plan (1) Acute blood loss anemia: Status: Acute (2) GI (gastrointestinal bleed): Status: Acute (3) Atypical ductal hyperplasia of left breast: Status: Acute (4) 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 (5) Morbid obesity: Status: Acute Plan awaiting the complete assessment of this transfusion reaction which appears to be simply allergic in other words just urticaria and she was given a preparatory dose of steroids x1 and now receiving a 2nd unit without consequence no fever no shortness of breath and then a repeat CBC and coagulation workup to us to rule out hemolysis and or DIC which I clinically doubt
[2021-09-03 14:45] LABS: MANUAL DIFF FLAG NO
[2021-09-03 14:46] LABS: Basophils Percent Auto 0.3 % (0-2); Eosinophils Absolute Auto 0.1 X10*3/uL (0.0-0.4); Hematocrit 28.5 % (37.0-47.0); Hemoglobin 8.9 g/dl (12.0-16.0); Imm Gran Abs Auto 0.11 X10*3/uL (0.00-0.03); Imm Gran Pct Auto 1.1 % (0.0-0.4); Lymphocytes Percent Auto 20.3 % (20-40); Mean Corpuscular HGB Conc 31.2 g/dl (31.0-35.0); Mean Corpuscular Hemoglobin 27.9 pg (27.0-33.0); Mean Corpuscular Volume 89.3 fL (80.0-98.0); Mean Platelet Volume 10.6 fL (9.4-12.3); Monocytes Absolute Auto 0.4 X10*3/uL (0.1-1.2); NRBC Pct Auto 0.2 /100WBC (0.0-0.2); Neutrophils Percent Auto 73.3 % (45-73); Platelet Count 240 X10*3/uL (160-400); Red Blood Count 3.19 X10*6/uL (4.20-5.50); Red Cell Distribution Width 14.4 % (11.0-16.0); White Blood Count 9.6 X10*3/uL (4.8-10.8)
[2021-09-03 14:52] LABS: Prothrombin Time 11.9 SEC (9.9-13.0)
[2021-09-03 14:57] LABS: Partial Thromboplastin Time 23.5 SEC (24.1-38.0)
[2021-09-03 15:03] LABS: Lactate Dehydrogenase 207 U/L (122-220)
--- NOTE | 2021-09-03 15:55 | PM.EVENT ---
Event Note Date of Service: 09/04/21 Event Note: followed closely today no bloody BM since this morning early denies abdl pain ongoing transfusion for 2nd unit of pRBCs HR seems to have stablized as per IR - unable to get staff today for angigram, embolization also, [facility] unable to accept pt for IR earlier pt moved to ICU transfuse as needed if with significant rebleed - angiogram, otherwise pt will need possible subtotal colectomy as bleeding is not localized with certainty
[2021-09-03 20:07] LABS: MANUAL DIFF FLAG NO
[2021-09-03 20:09] LABS: Basophils Percent Auto 0.3 % (0-2); Hematocrit 30.5 % (37.0-47.0); Hemoglobin 9.7 g/dl (12.0-16.0); Imm Gran Abs Auto 0.17 X10*3/uL (0.00-0.03); Imm Gran Pct Auto 1.5 % (0.0-0.4); Lymphocytes Absolute Auto 1.1 X10*3/uL (1.2-4.9); Lymphocytes Percent Auto 9.5 % (20-40); Mean Corpuscular HGB Conc 31.8 g/dl (31.0-35.0); Mean Corpuscular Hemoglobin 27.7 pg (27.0-33.0); Mean Corpuscular Volume 87.1 fL (80.0-98.0); Mean Platelet Volume 10.4 fL (9.4-12.3); Monocytes Absolute Auto 0.1 X10*3/uL (0.1-1.2); Monocytes Percent Auto 1.2 % (2-11); Neutrophils Absolute Auto 9.7 x10*3/uL (2.0-8.3); Neutrophils Percent Auto 87.5 % (45-73); Platelet Count 254 X10*3/uL (160-400); Red Cell Distribution Width 14.3 % (11.0-16.0); White Blood Count 11.1 X10*3/uL (4.8-10.8)
[2021-09-03] MEDS: Lurasidone HCl 80 MG TABLET PO (21:40)
[2021-09-04] VITALS (19 sets, daily range): BP systolic 107–133; BP diastolic 54–76; PULSE 84–104; RESP 11–26; TEMP 36.3–37.1; O2SAT 90–100; BMI 43.4
[2021-09-04] MEDS: Lactated Ringers 1,000 ML 150 ML IVCONT ×3 (04:42→18:07)
[2021-09-04 05:39] LABS: MANUAL DIFF FLAG NO
[2021-09-04 05:41] LABS: Basophils Percent Auto 0.1 % (0-2); Hematocrit 28.2 % (37.0-47.0); Hemoglobin 8.9 g/dl (12.0-16.0); Imm Gran Abs Auto 0.17 X10*3/uL (0.00-0.03); Imm Gran Pct Auto 1.7 % (0.0-0.4); Lymphocytes Absolute Auto 1.2 X10*3/uL (1.2-4.9); Lymphocytes Percent Auto 12.2 % (20-40); Mean Corpuscular HGB Conc 31.6 g/dl (31.0-35.0); Mean Corpuscular Hemoglobin 28.3 pg (27.0-33.0); Mean Corpuscular Volume 89.8 fL (80.0-98.0); Mean Platelet Volume 10.9 fL (9.4-12.3); Monocytes Absolute Auto 0.4 X10*3/uL (0.1-1.2); Monocytes Percent Auto 3.5 % (2-11); Neutrophils Absolute Auto 8.2 x10*3/uL (2.0-8.3); Neutrophils Percent Auto 82.5 % (45-73); Platelet Count 208 X10*3/uL (160-400); Red Blood Count 3.14 X10*6/uL (4.20-5.50); Red Cell Distribution Width 14.4 % (11.0-16.0); White Blood Count 9.9 X10*3/uL (4.8-10.8)
[2021-09-04 06:01] LABS: Anion Gap 12 (12-20); Blood Urea Nitrogen 15 mg/dL (9-16); Calcium 8.2 mg/dL (8.4-10.2); Carbon Dioxide 21 mmol/L (22-29); Chloride 112 mmol/L (96-108); Creatinine Clr Calc Pharmacy 124.5; Estimated Glomerular Filt Rate > 60; Glucose Random 117 mg/dL (60-115); Magnesium 1.8 mg/dL (1.6-2.6); Phosphorus 3.9 mg/dL (2.7-4.5); Potassium 4.3 mmol/L (3.3-5.1); Sodium 141 mmol/L (135-145)
[2021-09-04] MEDS: Fluticasone Propionate 250 MCG BLST.W.DEV 1 PUFF INHALE (08:15)
[2021-09-04 09:25] LABS: MANUAL DIFF FLAG NO
[2021-09-04 09:29] LABS: Basophils Percent Auto 0.1 % (0-2); Hematocrit 26.2 % (37.0-47.0); Hemoglobin 8.4 g/dl (12.0-16.0); Imm Gran Abs Auto 0.18 X10*3/uL (0.00-0.03); Imm Gran Pct Auto 1.8 % (0.0-0.4); Lymphocytes Absolute Auto 1.3 X10*3/uL (1.2-4.9); Mean Corpuscular HGB Conc 32.1 g/dl (31.0-35.0); Mean Corpuscular Hemoglobin 27.9 pg (27.0-33.0); Mean Platelet Volume 10.2 fL (9.4-12.3); Monocytes Absolute Auto 0.8 X10*3/uL (0.1-1.2); Neutrophils Absolute Auto 7.9 x10*3/uL (2.0-8.3); Neutrophils Percent Auto 77.1 % (45-73); Platelet Count 240 X10*3/uL (160-400); Red Blood Count 3.01 X10*6/uL (4.20-5.50); Red Cell Distribution Width 14.4 % (11.0-16.0); White Blood Count 10.2 X10*3/uL (4.8-10.8)
[2021-09-04 11:36] LABS: Haptoglobin 152 mg/dL (43-212); Immunoglobulin A 196 mg/dL (47-310)
[2021-09-04] MEDS: Hydrocortisone Sod Succ/PF 100 MG VIAL 50 MG IVPUSH ×2 (12:07→22:34)
[2021-09-04 13:22] LABS: MANUAL DIFF FLAG NO
[2021-09-04 13:27] LABS: Basophils Percent Auto 0.1 % (0-2); Hematocrit 27.5 % (37.0-47.0); Hemoglobin 8.6 g/dl (12.0-16.0); Imm Gran Abs Auto 0.12 X10*3/uL (0.00-0.03); Imm Gran Pct Auto 1.1 % (0.0-0.4); Lymphocytes Absolute Auto 1.7 X10*3/uL (1.2-4.9); Mean Corpuscular HGB Conc 31.3 g/dl (31.0-35.0); Mean Corpuscular Hemoglobin 27.7 pg (27.0-33.0); Mean Corpuscular Volume 88.7 fL (80.0-98.0); Mean Platelet Volume 10.5 fL (9.4-12.3); Monocytes Absolute Auto 0.8 X10*3/uL (0.1-1.2); Monocytes Percent Auto 7.5 % (2-11); Neutrophils Percent Auto 75.3 % (45-73); Platelet Count 257 X10*3/uL (160-400); Red Cell Distribution Width 14.5 % (11.0-16.0); White Blood Count 10.6 X10*3/uL (4.8-10.8)
--- NOTE | 2021-09-04 15:58 | P.PNCC_ITS ---
Subjective Subjective Date of Service: 09/04/21 Interval History: 56-year-old moderately obese female with the recent onset of lower GI bleed documented with positive red blood cell scan to be originating from the distal transverse colon today has been rather stable with stable hemoglobin of about 8.6 not continuing to full with stable vital signs no complaints of abdominal pain no chest discomfort or shortness of breath and she has normal platelet count but she is only 24-36 hours off aspirin and from my standpoint and somebody has already had a her to cardial reaction to the transfusion I am not going to give her a platelet transfusion I do not think there is anything to gain Critical Care Time (minutes): 45 Physical Exam Vital Signs: Vital Signs: Last Vital Signs Temp 97.8 F 09/04/21 13:00 Pulse 91 09/04/21 15:00 Resp 17 09/04/21 15:00 BP 117/66 09/04/21 15:00 Pulse Ox 94 09/04/21 15:00 BMI result Body Mass Index 43.4 vital signs are stable and she is neurologically intact cardiovascular by bedside echo with 60-65% ejection fra ction normal anatomy chest is clear without adventitio us sounds abdomen soft without organomegaly and no laboratory evidence of coagulopathy skin peripheral E no acrocyanosis no livedo Objective Data Labs CBC & Chem 7: 09/04/21 13:18 09/04/21 05:29 Labs: Laboratory Results - last 24 hr 09/01/21 09/03/21 09/03/21 00:00 14:19 14:19 WBC RBC Hgb Hct MCV MCH MCHC RDW Plt Count MPV Immature Gran % (Auto) Neut % (Auto) Lymph % (Auto) [place] % (Auto) Eos % (Auto) Baso % (Auto) Lymph # (Auto) [place] # (Auto) Eos # (Auto) Baso # (Auto) Abs Immat Gran (auto) Absolute Neuts (auto) Absolute Nucleated RBC Nucleated RBC % (auto) Haptoglobin 152 Sodium Potassium Chloride Carbon Dioxide Anion Gap BUN Creatinine Estim Creat Clear Calc Estimated GFR Random Glucose Calcium Phosphorus Magnesium IgA 196 ANDREW, Polyspecific Positive ANDREW Work-up Crossmatch See Detail 09/03/21 09/03/21 09/04/21 16:32 19:49 05:29 WBC 11.1 H 9.9 RBC 3.50 L 3.14 L Hgb 9.7 L 8.9 L Hct 30.5 L 28.2 L MCV 87.1 89.8 MCH 27.7 28.3 MCHC 31.8 31.6 RDW 14.3 14.4 Plt Count 254 208 MPV 10.4 10.9 Immature Gran % (Auto) 1.5 H 1.7 H Neut % (Auto) 87.5 H 82.5 H Lymph % (Auto) 9.5 L 12.2 L [place] % (Auto) 1.2 L 3.5 Eos % (Auto) 0.0 0.0 Baso % (Auto) 0.3 0.1 Lymph # (Auto) 1.1 L 1.2 [place] # (Auto) 0.1 0.4 Eos # (Auto) 0.0 0.0 Baso # (Auto) 0.0 0.0 Abs Immat Gran (auto) 0.17 H 0.17 H Absolute Neuts (auto) 9.7 H 8.2 Absolute Nucleated RBC 0.000 0.000 Nucleated RBC % (auto) 0.0 0.0 Haptoglobin Sodium Potassium Chloride Carbon Dioxide Anion Gap BUN Creatinine Estim Creat Clear Calc Estimated GFR Random Glucose Calcium Phosphorus Magnesium IgA ANDREW, Polyspecific NEGATIVE Positive ANDREW Work-up TNP Crossmatch 09/04/21 09/04/21 09/04/21 05:29 09:22 13:18 WBC 10.2 10.6 RBC 3.01 L 3.10 L Hgb 8.4 L 8.6 L Hct 26.2 L 27.5 L MCV 87.0 88.7 MCH 27.9 27.7 MCHC 32.1 31.3 RDW 14.4 14.5 Plt Count 240 257 MPV 10.2 10.5 Immature Gran % (Auto) 1.8 H 1.1 H Neut % (Auto) 77.1 H 75.3 H Lymph % (Auto) 13.0 L 16.0 L [place] % (Auto) 8.0 7.5 Eos % (Auto) 0.0 0.0 Baso % (Auto) 0.1 0.1 Lymph # (Auto) 1.3 1.7 [place] # (Auto) 0.8 0.8 Eos # (Auto) 0.0 0.0 Baso # (Auto) 0.0 0.0 Abs Immat Gran (auto) 0.18 H 0.12 H Absolute Neuts (auto) 7.9 8.0 Absolute Nucleated RBC 0.000 0.000 Nucleated RBC % (auto) 0.0 0.0 Haptoglobin Sodium 141 Potassium 4.3 Chloride 112 H Carbon Dioxide 21 L Anion Gap 12 BUN 15 Creatinine 0.65 Estim Creat Clear Calc 124.5 Estimated GFR > 60 Random Glucose 117 H Calcium 8.2 L D Phosphorus 3.9 Magnesium 1.8 IgA ANDREW, Polyspecific Positive ANDREW Work-up Crossmatch Progress Note: A&P Assessment and plan (1) Morbid obesity: Status: Acute (2) Acute blood loss anemia: Status: Acute (3) GI (gastrointestinal bleed): Status: Acute (4) Atypical ductal hyperplasia of left breast: Status: Acute (5) 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 Plan given her stability both by laboratory as well as physically I think were she is a candidate to go back to the floor for observation and I plan to withhold further transfusion until hemoglobin once again drops below 8 if that were to happen and surgery is on board in case of an emergency but right now the bleed clearly is not brisk so there was no diagnostic benefit to anything and if it were to become brisk enough to merit angiography we would at that point transfuse as as necessary replace volume as necessary contact institution that has interventional radiology Quality Stroke Does the patient have a stroke diagnosis?: No VTE Prior VTE?: No VTE Risk Level:: Medical - moderate - high VTE Device Contraindication: N/A - Device Ordered VTE Drug Contraindication: Treatment Not Indicated
[2021-09-04] MEDS: 0.9 % Sodium Chloride Flush 3 ML SYRINGE IVFLUSH (22:35)
[2021-09-05] VITALS (7 sets, daily range): BP systolic 105–121; BP diastolic 54–72; PULSE 70–97; RESP 16–19; TEMP 35.5–37; O2SAT 97–100; BMI 42.5
[2021-09-05 06:14] LABS: Anion Gap 13 (12-20); Blood Urea Nitrogen 12 mg/dL (9-16); Calcium 8.4 mg/dL (8.4-10.2); Carbon Dioxide 24 mmol/L (22-29); Chloride 111 mmol/L (96-108); Creatinine Clr Calc Pharmacy 127.6; Estimated Glomerular Filt Rate > 60; Glucose Random 92 mg/dL (60-115); Phosphorus 3.4 mg/dL (2.7-4.5); Potassium 3.9 mmol/L (3.3-5.1); Sodium 144 mmol/L (135-145)
[2021-09-05 08:22] LABS: Basophils Percent Auto 0.2 % (0-2); Eosinophils Percent Auto 0.2 % (0-4); Hematocrit 25.8 % (37.0-47.0); Hemoglobin 8.1 g/dl (12.0-16.0); Imm Gran Abs Auto 0.09 X10*3/uL (0.00-0.03); Lymphocytes Absolute Auto 2.4 X10*3/uL (1.2-4.9); Lymphocytes Percent Auto 25.4 % (20-40); Mean Corpuscular HGB Conc 31.4 g/dl (31.0-35.0); Mean Corpuscular Hemoglobin 27.7 pg (27.0-33.0); Mean Corpuscular Volume 88.4 fL (80.0-98.0); Mean Platelet Volume 10.2 fL (9.4-12.3); Monocytes Absolute Auto 0.7 X10*3/uL (0.1-1.2); Monocytes Percent Auto 7.5 % (2-11); Neutrophils Absolute Auto 6.1 x10*3/uL (2.0-8.3); Neutrophils Percent Auto 65.7 % (45-73); Platelet Count 253 X10*3/uL (160-400); Red Blood Count 2.92 X10*6/uL (4.20-5.50); Red Cell Distribution Width 14.9 % (11.0-16.0); White Blood Count 9.3 X10*3/uL (4.8-10.8)
[2021-09-05] MEDS: 0.9 % Sodium Chloride Flush 3 ML SYRINGE IVFLUSH ×3 (08:31→20:21)
[2021-09-05] MEDS: Lactated Ringers 1,000 ML 150 ML IVCONT (08:31)
--- NOTE | 2021-09-05 10:20 | P.PNIM_ITS ---
Subjective Subjective Date of Service: 09/05/21 Interval History: the patient was seen and evaluated this morning Laying in bed, feels comfortable with no more episodes of bleeding for the last 2 days Denies any fever, chills or shortness of breath No reported other overnight events. Systemic review: No fever, chills or weakness No chest pain, palpitation No shortness of breath or coughing No abdominal pain, nausea or vomiting No urinary symptoms No any rash or wounds Physical Exam Vital Signs: Vital Signs: Last Vital Signs Temp 96 F L 09/05/21 07:06 Pulse 77 09/05/21 07:06 Resp 18 09/05/21 07:06 BP 119/65 09/05/21 07:06 Pulse Ox 100 09/05/21 07:06 BMI result Body Mass Index 42.5 Const: Other: Constitutional : Alert, oriented, not in distress Neck : Normal inspection, Supple Cardiovascular : RRR, S1 S2, no lower extremity edema Respiratory : Good bilateral air entry, no crackles, wheezes or rhonchi Gastrointestinal: soft, lax, Normal bowel sounds, Non tender Skin : Warm, Dry Neurological : Alert & oriented x3, No focal deficit Objective Data Active Medications Clonazepam (Clonazepam 1 Mg Tablet) 1 mg PO TID PRN PRN Reason: Anxiety Diphenhydramine HCl (Diphenhydramine Hcl 50 Mg/Ml Vial) 25 mg IVPUSH Q6H PRN PRN Reason: itch and hives Famotidine (Famotidine 20 Mg Tablet) 40 mg PO BEDTIME COUNT [facility]CLUDES [facility] Fluticasone Propionate (Fluticasone Propionate 250 Mcg Blst.W.Dev) 1 puff INHALE RBID COUNT [facility]CLUD[facility] Last Admin: 09/05/21 07:58 Dose: Not Given Documented by: RHEA Non-Admin Reason: Patient Refused Pharmacy Consult (Consult Rx Perform Med Rec) 1 each MISCELLANE ONCE PRN PRN Reason: Consult order Sodium Chloride (0.9 % Sodium Chloride Flush 3 Ml Syringe) 3 ml IVFLUSH QSHIFT [facility]CLUD[facility] Last Admin: 09/05/21 08:31 Dose: 3 ml Documented by: CARLOS Labs CBC & Chem 7: 09/05/21 08:12 09/05/21 05:34 Labs: Laboratory Results - last 24 hr 09/03/21 09/03/21 09/04/21 14:19 14:19 13:18 MCV 88.7 MCH 27.7 MCHC 31.3 RDW 14.5 Plt Count 257 MPV 10.5 Immature Gran % (Auto) 1.1 H Neut % (Auto) 75.3 H Lymph % (Auto) 16.0 L [place] % (Auto) 7.5 Eos % (Auto) 0.0 Baso % (Auto) 0.1 Lymph # (Auto) 1.7 [place] # (Auto) 0.8 Eos # (Auto) 0.0 Baso # (Auto) 0.0 Abs Immat Gran (auto) 0.12 H Absolute Neuts (auto) 8.0 Absolute Nucleated RBC 0.000 Nucleated RBC % (auto) 0.0 Haptoglobin 152 Anion Gap Estim Creat Clear Calc Estimated GFR Random Glucose Calcium Phosphorus Magnesium IgA 196 09/05/21 09/05/21 05:34 08:12 MCV 88.4 MCH 27.7 MCHC 31.4 RDW 14.9 Plt Count 253 MPV 10.2 Immature Gran % (Auto) 1.0 H Neut % (Auto) 65.7 Lymph % (Auto) 25.4 [place] % (Auto) 7.5 Eos % (Auto) 0.2 Baso % (Auto) 0.2 Lymph # (Auto) 2.4 [place] # (Auto) 0.7 Eos # (Auto) 0.0 Baso # (Auto) 0.0 Abs Immat Gran (auto) 0.09 H Absolute Neuts (auto) 6.1 Absolute Nucleated RBC 0.000 Nucleated RBC % (auto) 0.0 Haptoglobin Anion Gap 13 Estim Creat Clear Calc 127.6 Estimated GFR > 60 Random Glucose 92 Calcium 8.4 Phosphorus 3.4 Magnesium 2.0 IgA Assessment and Plan (1) Acute blood loss anemia: Status: Acute (2) GI (gastrointestinal bleed): Status: Acute (3) Morbid obesity: Status: Acute Plan 56F with a past medical history of asthma, GERD, history of GI bleed, 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 Admitted for following Acute blood loss anemia 2/2 lower GI bleed had Positive bleeding scan: Gastric intestinal hemorrhage in the left colon. most intense area of activity present in the mid through distal transverse colon? transfused 2 PRBCs units aspirin hold unable to do angiogram here, tried transfering to [facility]--Not taking transfers, [place] No bed,[facility] will [facility] on [facility] monitored in ICU with no further bleeding. Hemoglobin remained above 8. Consider repeating scan if any further bleeding Surgery in GI input appreciated, no intervention needed at this stage, hold ASA for a week Start diet and monitor H&H History of asthma No exacerbation For all other chronic conditions, home medications continued DVT prophylaxis SCD boots Quality Stroke Does the patient have a stroke diagnosis?: No VTE Prior VTE?: No VTE Risk Level:: Medical - moderate - high VTE Device Contraindication: N/A - Device Ordered VTE Drug Contraindication: Treatment Not Indicated
--- NOTE | 2021-09-05 11:43 | MHC.CM.PN ---
PER MEDICAL ROUNDS, PLAN IS LIKELY TO DC HOME TOMORROW (09/06/21) WITH RESUMPTION OF HER [employer]. PATIENT LIVES WITH HER GRAND DAUGHTER. FAMILY CAN PROVIDE TRANSPORT HOME.
--- NOTE | 2021-09-05 15:50 | P.PNGS_ITS ---
Subjective Subjective Date of Service: 09/05/21 Interval history: Seen on follow-up She has had no bleeding since Friday morning; however, this afternoon she said she had noted some dark maroon blood with bowel movements Denies any abdominal pain Physical Exam Vital Signs: Vital Signs: Last Vital Signs Temp 97.4 F 09/05/21 15:12 Pulse 82 09/05/21 15:12 Resp 18 09/05/21 15:12 BP 109/54 L 09/05/21 15:12 Pulse Ox 99 09/05/21 15:12 BMI result Body Mass Index 42.5 Const: General: comfortable and no acute distress Cardio: Rate: regular rate GI: Palpation (GI): Soft to palpation and nontender Objective Data Active Medications Clonazepam (Clonazepam 1 Mg Tablet) 1 mg PO TID PRN PRN Reason: Anxiety Diphenhydramine HCl (Diphenhydramine Hcl 50 Mg/Ml Vial) 25 mg IVPUSH Q6H PRN PRN Reason: itch and hives Famotidine (Famotidine 20 Mg Tablet) 40 mg PO BEDTIME [facility] Fluticasone Propionate (Fluticasone Propionate 250 Mcg Blst.W.Dev) 1 puff INHALE RBID [facility] Last Admin: 09/05/21 07:58 Dose: Not Given Documented by: RHEA Non-Admin Reason: Patient Refused Pharmacy Consult (Consult Rx Perform Med Rec) 1 each MISCELLANE ONCE PRN PRN Reason: Consult order Sodium Chloride (0.9 % Sodium Chloride Flush 3 Ml Syringe) 3 ml IVFLUSH QSHIFT [facility] Last Admin: 09/05/21 15:11 Dose: 3 ml Documented by: CARLOS Labs CBC & Chem 7: 09/05/21 08:12 09/05/21 05:34 Labs: Laboratory Results - last 24 hr 09/05/21 09/05/21 05:34 08:12 MCV 88.4 MCH 27.7 MCHC 31.4 RDW 14.9 Plt Count 253 MPV 10.2 Immature Gran % (Auto) 1.0 H Neut % (Auto) 65.7 Lymph % (Auto) 25.4 [place] % (Auto) 7.5 Eos % (Auto) 0.2 Baso % (Auto) 0.2 Lymph # (Auto) 2.4 [place] # (Auto) 0.7 Eos # (Auto) 0.0 Baso # (Auto) 0.0 Abs Immat Gran (auto) 0.09 H Absolute Neuts (auto) 6.1 Absolute Nucleated RBC 0.000 Nucleated RBC % (auto) 0.0 Anion Gap 13 Estim Creat Clear Calc 127.6 Estimated GFR > 60 Random Glucose 92 Calcium 8.4 Phosphorus 3.4 Magnesium 2.0 Procedures Date of Service Date of Service: 09/05/21 Progress Note: A&P Assessment and plan (1) GI (gastrointestinal bleed): Status: Acute Assessment and Plan: Has had no bleeding since Friday but says she noticed dark maroon blood again this afternoon She says this is not much as she had before Her hemoglobin has been relatively stable after transfusion of 2 units last Friday She looks comfortable Follow H&H If with signs of active bleed again, would recommend angiogram, embolization No NSAIDs, no anticoagulants, no heparin/aspirin Fall Risk Details Current Medications: Current Medications Clonazepam (Clonazepam 1 Mg Tablet) 1 mg PO TID PRN PRN Reason: Anxiety Diphenhydramine HCl (Diphenhydramine Hcl 50 Mg/Ml Vial) 25 mg IVPUSH Q6H PRN PRN Reason: itch and hives Famotidine (Famotidine 20 Mg Tablet) 40 mg PO BEDTIME [facility] Fluticasone Propionate (Fluticasone Propionate 250 Mcg Blst.W.Dev) 1 puff INHALE RBID [facility] Last Admin: 09/05/21 07:58 Dose: Not Given Documented by: Pharmacy Consult (Consult Rx Perform Med Rec) 1 each MISCELLANE ONCE PRN PRN Reason: Consult order Sodium Chloride (0.9 % Sodium Chloride Flush 3 Ml Syringe) 3 ml IVFLUSH QSHIFT [facility] Last Admin: 09/05/21 15:11 Dose: 3 ml Documented by: Time Spent With Patient Time: Total time spent is greater than 50% in coordination of care (as documented) at patient's floor/unit and/or counseling patient: Time with patient: 15 - 24 minutes Quality Stroke Does the patient have a stroke diagnosis?: No VTE Prior VTE?: No VTE Risk Level:: Medical - moderate - high VTE Device Contraindication: N/A - Device Ordered VTE Drug Contraindication: Treatment Not Indicated
[2021-09-05 16:42] LABS: Hematocrit 27.5 % (37.0-47.0); Hemoglobin 8.7 g/dl (12.0-16.0); Mean Corpuscular HGB Conc 31.6 g/dl (31.0-35.0); Mean Corpuscular Hemoglobin 28.4 pg (27.0-33.0); Mean Corpuscular Volume 89.9 fL (80.0-98.0); Mean Platelet Volume 10.3 fL (9.4-12.3); Platelet Count 259 X10*3/uL (160-400); Red Blood Count 3.06 X10*6/uL (4.20-5.50); White Blood Count 10.7 X10*3/uL (4.8-10.8)
[2021-09-05] MEDS: Fluticasone Propionate 250 MCG BLST.W.DEV 1 PUFF INHALE (19:33)
[2021-09-05] MEDS: Famotidine 20 MG TABLET 40 MG PO (20:21)
[2021-09-06 04:00] VITALS: BP 128/73; PULSE 80; RESP 17; TEMP 36.8; O2SAT 99
[2021-09-06 06:26] LABS: Hematocrit 25.4 % (37.0-47.0); Hemoglobin 7.9 g/dl (12.0-16.0); Mean Corpuscular HGB Conc 31.1 g/dl (31.0-35.0); Mean Corpuscular Hemoglobin 27.8 pg (27.0-33.0); Mean Corpuscular Volume 89.4 fL (80.0-98.0); Platelet Count 261 X10*3/uL (160-400); Red Blood Count 2.84 X10*6/uL (4.20-5.50); White Blood Count 8.4 X10*3/uL (4.8-10.8)
[2021-09-06 07:39] VITALS: BP 149/75; PULSE 85; RESP 18; TEMP 37.1; O2SAT 98
[2021-09-06] MEDS: Fluticasone Propionate 250 MCG BLST.W.DEV 1 PUFF INHALE (08:18)
[2021-09-06 08:19] VITALS: PULSE 85; RESP 18; O2SAT 98
--- NOTE | 2021-09-06 08:22 | P.PNGS_ITS ---
Subjective Subjective Date of Service: 09/06/21 Interval history: C/o nausea and bloating. Denies passing flatus. OOB minimally yesterday. Physical Exam Vital Signs: Vital Signs: Last Vital Signs Temp 98.7 F 09/06/21 07:39 Pulse 85 09/06/21 08:19 Resp 18 09/06/21 08:19 BP 149/75 H 09/06/21 07:39 Pulse Ox 98 09/06/21 07:39 BMI result Body Mass Index 42.5 Const: General: comfortable, no acute distress and alert Orientation/consciousness: patient oriented x3 Resp: Effort & Inspection: normal respiratory effort GI: Inspection: Yes distended and Yes incision (clean) Palpation (GI): Soft to palpation, Tenderness to palpation present (GI) and no guarding Percussion: Yes tympanic to percussion Skin: General skin exam: no rashes or lesions noted Neuro: General: patient oriented x3 Extrem: General: Yes no clubbing, cyanosis or edema Objective Data Active Medications Clonazepam (Clonazepam 1 Mg Tablet) 1 mg PO TID PRN PRN Reason: Anxiety Diphenhydramine HCl (Diphenhydramine Hcl 50 Mg/Ml Vial) 25 mg IVPUSH Q6H PRN PRN Reason: itch and hives Famotidine (Famotidine 20 Mg Tablet) 40 mg PO BEDTIME [facility] Last Admin: 09/05/21 20:21 Dose: 40 mg Documented by: SHEILA Fluticasone Propionate (Fluticasone Propionate 250 Mcg Blst.W.Dev) 1 puff INHALE RBID [facility] Last Admin: 09/06/21 08:18 Dose: 1 puff Documented by: NOELLE Pharmacy Consult (Consult Rx Perform Med Rec) 1 each MISCELLANE ONCE PRN PRN Reason: Consult order Sodium Chloride (0.9 % Sodium Chloride Flush 3 Ml Syringe) 3 ml IVFLUSH QSHIFT [facility] Last Admin: 09/05/21 20:21 Dose: 3 ml Documented by: SHEILA Labs CBC & Chem 7: 09/06/21 06:14 09/05/21 05:34 Labs: Laboratory Results - last 24 hr 09/05/21 09/05/21 09/06/21 08:12 16:27 06:14 MCV 88.4 89.9 89.4 MCH 27.7 28.4 27.8 MCHC 31.4 31.6 31.1 RDW 14.9 15.0 15.0 Plt Count 253 259 261 MPV 10.2 10.3 10.0 Immature Gran % (Auto) 1.0 H Neut % (Auto) 65.7 Lymph % (Auto) 25.4 [place] % (Auto) 7.5 Eos % (Auto) 0.2 Baso % (Auto) 0.2 Lymph # (Auto) 2.4 [place] # (Auto) 0.7 Eos # (Auto) 0.0 Baso # (Auto) 0.0 Abs Immat Gran (auto) 0.09 H Absolute Neuts (auto) 6.1 Absolute Nucleated RBC 0.000 0.000 0.000 Nucleated RBC % (auto) 0.0 0.0 0.0 Procedures Date of Service Date of Service: 09/06/21 Progress Note: A&P Assessment and plan (1) Cecal polyp: Status: Acute (2) S/P right colectomy: Status: Acute Plan 56 year old female s/p RAMA right colectomy for unresectable cecal polyp. She has is having nausea and distention post op without evidence of GI function. VSS. Abd distended and tympantic, appropriate post op tenderness, incision clean. Likely with post op ileus. Will continue clear liquids for now until evidence of return of GI function. Strongly encouraged OOB and ambulation of halls and IS use 10x/hr. Cont IVF, pain control. Fall Risk Details Current Medications: Current Medications Clonazepam (Clonazepam 1 Mg Tablet) 1 mg PO TID PRN PRN Reason: Anxiety Diphenhydramine HCl (Diphenhydramine Hcl 50 Mg/Ml Vial) 25 mg IVPUSH Q6H PRN PRN Reason: itch and hives Famotidine (Famotidine 20 Mg Tablet) 40 mg PO BEDTIME [facility] Last Admin: 09/05/21 20:21 Dose: 40 mg Documented by: Fluticasone Propionate (Fluticasone Propionate 250 Mcg Blst.W.Dev) 1 puff INHALE RBID [facility] Last Admin: 09/06/21 08:18 Dose: 1 puff Documented by: Pharmacy Consult (Consult Rx Perform Med Rec) 1 each MISCELLANE ONCE PRN PRN Reason: Consult order Sodium Chloride (0.9 % Sodium Chloride Flush 3 Ml Syringe) 3 ml IVFLUSH QSHIFT [facility] Last Admin: 09/05/21 20:21 Dose: 3 ml Documented by: Time Spent With Patient Time: Total time spent is greater than 50% in coordination of care (as documented) at patient's floor/unit and/or counseling patient: Time with patient: 15 - 24 minutes Quality Stroke Does the patient have a stroke diagnosis?: No VTE Prior VTE?: No VTE Risk Level:: Medical - moderate - high VTE Device Contraindication: N/A - Device Ordered VTE Drug Contraindication: Treatment Not Indicated
[2021-09-06] MEDS: Letrozole 2.5 MG TABLET PO (09:39)
[2021-09-06] MEDS: 0.9 % Sodium Chloride Flush 3 ML SYRINGE IVFLUSH (09:40)
--- NOTE | 2021-09-06 11:29 | P.DS_ITS ---
DS: Providers Provider Date of Service: 09/06/21 Date of admission: 09/03/21 12:30 Primary care physician: Mariano Rodríguez MD Consults: 09/01/21 02:30 Consult to Gastroenterology Routine Consulting Provider: Mansoor Araiza Reason for consultation: GI bleed 09/02/21 14:26 Consult to General Surgery Routine Consulting Provider: Kan Lopez Reason for consultation: Diverticular bleed DS: Diagnosis Discharge Diagnosis (1) Morbid obesity: Status: Acute (2) Acute blood loss anemia: Status: Acute (3) GI (gastrointestinal bleed): Status: Acute DS: Summary Hospital Course Hospital Course: Admission note HPI 56F with a past medical history of asthma, GERD, history of GI bleed, 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 Patient reported that today she had 4 episodes of blood in the stool.? Bright red blood per rectum.? Denies any abdominal pain.? Denies any nausea vomiting.? Denies any further episodes of she came to the hospital.? Denies any lightheadedness dizziness.? Denies any chest pain or palpitations.? Denies any recent history of antibiotics or [id number]-onuoofa pain medication usage.? Denies any numbness tingling or focal weakness.? Hospital Course To the hospital the patient was admitted to the hospital for evaluation of bloody stool. Bleeding scan:?Gastric intestinal hemorrhage in the left colon. most intense area of activity present in the mid through distal transverse colon. she was?transfused 2 PRBCs units for hemoglobin of 6.8 that has improved to 8 and remained around that number with no recurrence of the bleeding. we were?unable to do angiogram here, tried transfering to [facility]--Not taking transfers, [facility] No bed,[facility]? put her on waiting list. monitored in ICU with no further bleeding noted as she was transferred to the medical floor.? Hemoglobin remained above 8. Surgery in GI input appreciated, no intervention needed at this stage, hold ASA for a week tolerated diet well as hemoglobin remained around 8. Hold aspirin for 1 more week To follow-up with PCP for the need of aspirin To follow-up with Dr. Glez as outpatient to arrange for repeat colonoscopy Go to the emergency for any recurrence of the bleeding. Time Spent with Patient Time attestation: Total time spent providing and/or coordinating discharge services: Discharge coordination time: Greater than 30 minutes Quality: Stroke Does the patient have a stroke diagnosis?: No Physical Exam Vital Signs: Vital Signs: Last Vital Signs Temp 98.7 F 09/06/21 07:39 Pulse 85 09/06/21 08:19 Resp 18 09/06/21 08:19 BP 149/75 H 09/06/21 07:39 Pulse Ox 98 09/06/21 07:39 BMI result Body Mass Index 42.5 Const: Other: Constitutional : Alert, oriented, not in distress Neck : Normal inspection, Supple Cardiovascular : RRR, S1 S2, no lower extremity edema Respiratory : Good bilateral air entry, no crackles, wheezes or rhonchi Gastrointestinal: soft, lax, Normal bowel sounds, Non tender Skin : Warm, Dry Neurological : Alert & oriented x3, No focal deficit DS: Data Data Completed and Pending Labs on day of discharge: Laboratory Results - last 24 hr 09/05/21 09/06/21 16:27 06:14 WBC 10.7 8.4 RBC 3.06 L 2.84 L Hgb 8.7 L 7.9 L Hct 27.5 L 25.4 L MCV 89.9 89.4 MCH 28.4 27.8 MCHC 31.6 31.1 RDW 15.0 15.0 Plt Count 259 261 MPV 10.3 10.0 Absolute Nucleated RBC 0.000 0.000 Nucleated RBC % (auto) 0.0 0.0 Discharge Plan Discharge Patient Disposition: Home, Self-Care Discharge Diagnosis: gastrointestinal bleeding Blood-loss anemia Referrals: Name,MD Mariano [Primary Care Provider] - 2 days Discharge Medications: Continued atorvastatin 10 mg Tablet 10 mg PO BEDTIME 0RF ferrous sulfate [iron] 325 mg (65 mg iron) Tablet 325 mg PO BID 0RF omeprazole 20 mg Capsule,Delayed Release(Dr/Ec) 20 mg PO DAILY 0RF letrozole 2.5 mg Tablet 2.5 mg PO DAILY 0RF melatonin 5 mg Tablet 5 mg PO BEDTIME 0RF Latuda 80 mg Tablet 80 mg PO BEDTIME 0RF Trintellix 20 mg Tablet 20 mg PO DAILY 0RF Flovent HFA 220 mcg/actuation HFA aerosol inhaler 1 puff PO BID 0RF famotidine 40 mg tablet 1 tab PO BEDTIME 0RF clonazepam 1 mg tablet 1 tab PO TID PRN (Reason: Anxiety) 0RF zolpidem [Ambien] 10 mg tablet 10 mg PO BEDTIME PRN (Reason: Insomnia) 0RF Held aspirin 81 mg tablet,delayed release (DR/EC) 1 tab PO DAILY 0RF Hold Instructions: Resume on 09/13/21. Discharge Orders: Discharge Order (Routine); Ordered 09/06/21 Ordered By: Ulises West Diet: advance to usual diet Activity on Discharge: As tolerated Stand Alone Forms: Patient Portal Discharge page, Work/School Release Other Ambulatory Orders: Complete Blood Count no Diff (Routine) Timeframe: [id number] Facility: [facility] - Location: Laboratory Ordered By: Ulises West Care Plan Goals: Read below Health Concerns: Read below Plan of Treatment: Read below Assessment: you were admitted to the hospital for evaluation of rectal bleeding. Images showed bleeding spot in the colon that resolved. He received blood transfusion and maintain your blood level around 8 with no recurrence of bleeding. Evaluated by Gastroenterology and surgery team who recommended no intervention as long as no recurrence of the bleeding. Hold aspirin for 1 more week To follow-up with PCP for the need of aspirin To follow-up with Dr. Glez as outpatient to arrange for repeat colonoscopy Go to the emergency for any recurrence of the bleeding. Patient Instructions: Rectal Bleeding (ED)
[2021-09-06 11:30] VITALS: BP 117/65; PULSE 84; RESP 20; TEMP 36.8; O2SAT 98
--- NOTE | 2021-09-06 11:52 | MHC.CM.PN ---
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
[2021-09-06 12:18] LABS: Hematocrit 26.6 % (37.0-47.0); Hemoglobin 8.2 g/dl (12.0-16.0); Mean Corpuscular HGB Conc 30.8 g/dl (31.0-35.0); Mean Corpuscular Hemoglobin 27.7 pg (27.0-33.0); Mean Corpuscular Volume 89.9 fL (80.0-98.0); Mean Platelet Volume 10.2 fL (9.4-12.3); Platelet Count 267 X10*3/uL (160-400); Red Blood Count 2.96 X10*6/uL (4.20-5.50); Red Cell Distribution Width 15.3 % (11.0-16.0); White Blood Count 8.4 X10*3/uL (4.8-10.8)
[2021-09-06 15:54] VITALS: BP 124/65; PULSE 88; RESP 18; TEMP 36.6; O2SAT 98
== END 2021-09-06 16:44 | disposition home or self-care (01) | DRG 244 ==
LOC: HO.ED 09-01 01:11 → HO.EDOVER 09-01 02:34 → HO.IMC 09-03 12:44 → HO.EDOVER 09-03 13:17 → HO.ICU 09-03 14:27 → HO.S3 09-04 16:45
PROVIDERS: Internal Medicine; Internal Medicine Cardiovascular Disease; Physician Assistant; Admitting Provider Hospitalist; Emergency Provider Student in an Organized Health Care Education/Training Program; PCP Internal Medicine Geriatric Medicine; Visit Provider Student in an Organized Health Care Education/Training Program
DX: K57.31 Diverticulosis of large intestine without perforation or abscess with bleeding (principal); I95.89 Other hypotension; D62 Acute posthemorrhagic anemia; C50.911 Malignant neoplasm of unspecified site of right female breast; E66.01 Morbid (severe) obesity due to excess calories; Z68.41 Body mass index [BMI] 40.0-44.9, adult; T80.89XA Other complications following infusion, transfusion and therapeutic injection, initial encounter; I45.10 Unspecified right bundle-branch block; J45.909 Unspecified asthma, uncomplicated; Z20.822 Contact with and (suspected) exposure to COVID-19; Z79.51 Long term (current) use of inhaled steroids; Z79.82 Long term (current) use of aspirin; Z79.899 Other long term (current) drug therapy
CPT/HCPCS: 36415; 74178; 78278; 80048; 80053; 82272; 82784; 82947; 83010; 83615; 83735; 84100; 85014; 85018; 85025; 85027; 85610; 85730; 86078; 86850; 86880; 86900; 86901; 86923; 87635; 93005; 94640; 99285; A9560; J2930; P9016; Q9967

== ENCOUNTER → 2021-10-30 15:17 | Outpatient (BNVA) | payer MEDICAID, SELFPAY | PROVIDERS: PCP Internal Medicine Geriatric Medicine; Referring Provider Internal Medicine Geriatric Medicine; Visit Provider Surgery | DX: D05.01 Lobular carcinoma in situ of right breast (principal); Z79.811 Long term (current) use of aromatase inhibitors; Z87.898 Personal history of other specified conditions | CPT/HCPCS: 99212 ==

== ENCOUNTER 2021-11-30 14:55 | Outpatient (REF) | payer MEDICAID, SELFPAY ==
--- NOTE | ~2021-11-30 | MM_ITS ---
EXAMINATION: BONE DENSITOMETRY CLINICAL INDICATION: On hormone suppression. COMPARISON: None (current study represents initial baseline exam). TECHNIQUE: Using a [employer] DXA System (software version: 13.1) manufactured by [employer], dual-energy x-ray absorptiometry was performed of the lumbar spine and left hip. The images are of good technical quality. Summary results are attached. FINDINGS: AP SPINE L1-L4: BMD 1.454 g/cm2, Z-score 2.2, T-score 2.3, normal. LEFT FEMUR, NECK: BMD 1.196 g/cm2, Z-score 1.6, T-score 1.1, normal. LEFT FEMUR, TOTAL: BMD 1.349 g/cm2, Z-score 2.7, T-score 2.7, normal. IDENTIFIED RISK FACTORS: Menopause. HISTORY OF FRACTURE: None listed. MEDICATIONS: Calcium, aromatase inhibitors. MM/XR DEXA axial skeleton IMPRESSION: 1. DIAGNOSIS: Normal bone density based on the lowest T-score value of 1.1 in the femoral neck applying World Health Organization criteria. 2. 10-YEAR FRACTURE RISK PREDICTION, FRAX: According to the guidelines, FRAX calculation should only be performed on patients in the osteopenia bone density category. Therefore, FRAX was not performed on this patient. 3. Treatment Recommendations: NOF guidelines recommend consideration for treatment in postmenopausal women and men age 50 and older presenting with the following: -A hip or vertebral (clinical or morphometric) fracture. -T-score less than or equal to -2.5 at the femoral neck or spine after appropriate evaluation to exclude secondary causes. -Low bone mass at the hip or spine and a 10-year fracture probability by FRAX of greater than or equal to 3% for hip fracture or greater than or equal to 20% for major osteoporotic fracture based on the [place] adapted WHO algorithm. 4. Other Recommendations: All treatment decisions require clinical judgment and consideration of individual patient factors, including patient preferences, comorbidities, previous drug use, risk factors not captured in the FRAX model (e.g. frailty, falls, vitamin D deficiency, increased bone turnover, interval significant decline in bone density) and possible under or overestimation of fracture risk by FRAX. FUTURE SCAN RECOMMENDATION: People with diagnosed cases of osteoporosis or at high risk for fracture should have regular bone mineral density tests. For patients eligible for Medicare, routine testing is allowed once every 2 years. The testing frequency can be increased to one year for patients who have rapidly progressing disease, those who are receiving or discontinuing medical therapy to restore bone mass, or have additional risk factors.
== END 2021-11-30 14:56 | disposition home or self-care (01) ==
LOC: HO.MAMMO 14:55
PROVIDERS: PCP Internal Medicine Geriatric Medicine; Visit Provider Internal Medicine
DX: Z13.820 Encounter for screening for osteoporosis (principal); M89.8X9 Other specified disorders of bone, unspecified site; D05.01 Lobular carcinoma in situ of right breast; Z78.0 Asymptomatic menopausal state
CPT/HCPCS: 77080

== ENCOUNTER 2022-03-19 14:18 | Outpatient (REF) | payer MEDICAID, SELFPAY ==
--- NOTE | ~2022-03-19 | MM_ITS ---
EXAMINATION: MM SCREENING DIGITAL BREAST TOMOSYNTHESIS, BILATERAL CLINICAL INFORMATION: Screening. Asymptomatic. Right lumpectomy 11/25/2018 (LCIS, flat epithelial atypia with focal ADH and biopsy site changes). Due for yearly. COMPARISON: Mammography: 03/13/2021, 03/07/2020, 06/04/2019, 11/25/2018, 10/20/2018, 10/12/2018, 10/07/2018. TECHNIQUE: Digital breast tomosynthesis is performed in both the craniocaudal and mediolateral oblique views along with computer-aided detection (CAD). Synthesized 2D images are generated from the tomosynthesis. Additional bilateral MLO views are provided. FINDINGS: There are scattered areas of fibroglandular density (ACR BI-RADS breast composition Category b). Parenchymal pattern is similar to prior studies. There is no interval mass or architectural abnormality. No abnormal calcifications. Mild post lumpectomy scarring with benign small oil cyst again noted central upper right breast. The axilla are unremarkable. There are no significant changes. MM/MM tomosynthesis screening BI IMPRESSION: No mammographic evidence of malignancy. ASSESSMENT: BI-RADS 2: Benign RECOMMENDATION: -Routine annual mammography screening. -Additional adjunct screening with breast MRI as clinical risk factors warrant. This patient's information was entered into a reminder system with a target due date for their next mammogram.
== END 2022-03-19 14:19 | disposition home or self-care (01) ==
LOC: HO.MAMMO 14:18
PROVIDERS: PCP Internal Medicine Geriatric Medicine; Visit Provider Internal Medicine Geriatric Medicine
DX: Z12.31 Encounter for screening mammogram for malignant neoplasm of breast (principal)
CPT/HCPCS: 77063; 77067

== ENCOUNTER 2022-03-20 16:25 | Outpatient (REF) | payer MEDICAID, SELFPAY ==
[2022-03-20 16:43] LABS: MANUAL DIFF FLAG NO
[2022-03-20 18:05] LABS: Basophils Absolute Auto 0.1 X10*3/uL (0.0-0.2); Basophils Percent Auto 1.1 % (0-2); Eosinophils Absolute Auto 0.2 X10*3/uL (0.0-0.4); Eosinophils Percent Auto 2.7 % (0-4); Hematocrit 35.1 % (37.0-47.0); Hemoglobin 10.2 g/dl (12.0-16.0); Imm Gran Abs Auto 0.02 X10*3/uL (0.00-0.03); Imm Gran Pct Auto 0.4 % (0.0-0.4); Lymphocytes Absolute Auto 1.8 X10*3/uL (1.2-4.9); Lymphocytes Percent Auto 32.8 % (20-40); Mean Corpuscular HGB Conc 29.1 g/dl (31.0-35.0); Mean Corpuscular Hemoglobin 22.3 pg (27.0-33.0); Mean Corpuscular Volume 76.8 fL (80.0-98.0); Mean Platelet Volume 10.2 fL (9.4-12.3); Monocytes Absolute Auto 0.6 X10*3/uL (0.1-1.2); Monocytes Percent Auto 11.6 % (2-11); Neutrophils Absolute Auto 2.8 x10*3/uL (2.0-8.3); Neutrophils Percent Auto 51.4 % (45-73); Platelet Count 397 X10*3/uL (160-400); Red Blood Count 4.57 X10*6/uL (4.20-5.50); Red Cell Distribution Width 17.6 % (11.0-16.0); White Blood Count 5.5 X10*3/uL (4.8-10.8)
[2022-03-20 18:12] LABS: Iron 36 mcg/dL (30-160); Percent Iron Saturation 9 % (15-50); Total Iron Binding Capacity 397 mcg/dL (228-428); Unsaturated Iron Binding 361 ug/dL
[2022-03-20 18:33] LABS: Ferritin 7 ng/mL (10-250)
[2022-03-20 19:24] LABS: Folate 5.4 ng/mL (> or = 4.0); Vitamin B12 158 pg/mL (200-900)
== END 2022-03-20 16:26 | disposition home or self-care (01) ==
LOC: HO.LAB 16:25
PROVIDERS: PCP Internal Medicine Geriatric Medicine; Visit Provider Internal Medicine
DX: D64.9 Anemia, unspecified (principal)
CPT/HCPCS: 36415; 82607; 82728; 82746; 83540; 85025

== ENCOUNTER 2022-05-02 14:47 | Outpatient (REF) | payer MEDICAID, SELFPAY ==
[2022-05-04 14:36] LABS: Immunoglobulin A 344 mg/dL (47-310)
[2022-05-07 20:41] LABS: Gliadin Deamidated IgG Ab 2.7 U/mL; Transglutaminase Ab IgG <1.0 U/mL; Transglutaminase IgA <1.0 U/mL
[2022-05-07 22:32] LABS: Intrinsic Factor Antibodies Negative (Negative)
[2022-05-07 23:27] LABS: Parietal Cell Antibody 49.2 Unit (<=20.0)
[2022-05-08 17:17] LABS: Endomysial IgA Antibody Negative (Negative)
== END 2022-05-02 14:48 | disposition home or self-care (01) ==
LOC: HO.LAB 14:47
PROVIDERS: PCP Internal Medicine Geriatric Medicine; Visit Provider Internal Medicine
DX: N60.92 Unspecified benign mammary dysplasia of left breast (principal); D05.01 Lobular carcinoma in situ of right breast; E53.8 Deficiency of other specified B group vitamins
CPT/HCPCS: 36415; 82784; 83516; 86231; 86258; 86340; 86364; 99212

== ENCOUNTER 2022-05-10 09:55 | Day surgery (SDC) | payer MEDICAID, SELFPAY ==
--- NOTE | 2022-05-09 12:24 | P.CONAN_ITS ---
Documented by User: Charito Ashby NP 05/09/22 12:25 HPI - Anesthesia Eval Consult details Narrative: 57yo F for Upper Endoscopy and Colonoscopy [facility] Past Medical History Medical History Anxiety Anxiety and depression Arthralgia Asthma Atypical ductal hyperplasia of left breast Bipolar affective disorder Diverticulitis GERD (gastroesophageal reflux disease) GI bleed (~04/2019) History of atypical hyperplasia of breast (~2008) Kidney stones 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 Morbid obesity Obstructive sleep apnea Pulmonary embolism (~1982) Tubular adenoma (~2005) Family History Family History Father Colon cancer Maternal Aunt Stomach cancer Paternal Aunt Colon cancer Mother Diabetes Heart disease Surgical History Surgical History H/O breast biopsy History of colonoscopy History of laparoscopic cholecystectomy Previous section Social History Social History Household Members: Family Housing: Apartment Are you a primary health and social care teacher to a significant other at home: No Do you presently have visiting nurse or other home services: Yes ([facility]) Alcohol intake: never Patient Tobacco Use Status: Never used Tobacco Are you DNR?: No Advance Directives: No Advance Directives Information Provided: Yes Nutrition Risks: No Nutritional Risk service: No Current occupational status: disabled Meds Allergies Allergy/AdvReac Type Severity Reaction Status Date / Time No Known Allergies Allergy Unknown Verified 05/10/22 10:18 Home Medications Medication Instructions Recorded Confirmed Last Taken Type atorvastatin 10 mg tablet 10 mg PO BEDTIME 05/01/20 05/10/22 08/31/21 History ferrous sulfate 325 mg (65 mg 325 mg PO BID 05/01/20 05/10/22 08/31/21 History iron) tablet (iron) letrozole 2.5 mg tablet 2.5 mg PO DAILY 05/01/20 05/10/22 08/31/21 History lurasidone 80 mg tablet (Latuda) 80 mg PO BEDTIME 05/01/20 05/10/22 08/31/21 History melatonin 5 mg tablet 5 mg PO BEDTIME 05/01/20 05/10/22 08/31/21 History omeprazole 20 mg capsule,delayed 20 mg PO DAILY 05/01/20 05/10/22 08/31/21 History release vortioxetine 20 mg tablet 20 mg PO DAILY 05/01/20 05/10/22 08/31/21 History (Trintellix) clonazepam 1 mg tablet 1 tab PO TID PRN Anxiety 09/01/21 05/10/22 Unknown History famotidine 40 mg tablet 1 tab PO BEDTIME 09/01/21 05/10/22 08/31/21 History fluticasone propionate 220 1 puff PO BID 09/01/21 05/10/22 05/10/22 History mcg/actuation HFA aerosol inhaler (Flovent HFA) cyanocobalamin (vitamin B-12) 1,000 mcg subcut QMONTH 04/25/22 05/10/22 Unknown History 1,000 mcg/mL injection solution clindamycin 1 %-benzoyl peroxide 5 1 appl topical BID 05/09/22 05/09/22 Unknown History % topical gel meclizine 1 mg PO DAILY 05/09/22 05/09/22 Unknown History zolpidem 10 mg tablet 1 tab PO BEDTIME PRN Sleep 05/09/22 05/09/22 Unknown History Exam Exam Date and Time: May 09, 2022 1224 Pertinent Lab Results Pertinent Lab Results: Laboratory Tests 04/25/22 04/25/22 12:31 12:31 WBC 6.6 Hgb 10.6 L Hct 34.9 L Plt Count 333 Sodium 141 Potassium 4.0 Chloride 106 Carbon Dioxide 26 BUN 9 Creatinine 0.81 Narrative Narrative: EKG 08/2021 Vent. Rate : 079 BPM ? ? Atrial Rate : 079 BPM ?? P-R Int : 144 ms? QRS Dur : 128 ms ? ? QT Int : 430 ms ? ? ? P-R-T Axes : 029 -40 -14 degrees ?? QTc Int : 493 ms ? Normal sinus rhythm Left axis deviation Right bundle branch block Abnormal ECG When compared with ECG of 21-JUL-2018 11:43, Right bundle branch block is now Present Assessment and Plan Assessment Anesthesia Assessment: Chart Reviewed Documented by User: Emanuel Watt MD 05/10/22 13:45 PMFSH Past Medical History Medical History Anxiety Anxiety and depression Arthralgia Asthma Atypical ductal hyperplasia of left breast Bipolar affective disorder Diverticulitis GERD (gastroesophageal reflux disease) GI bleed (~04/2019) History of atypical hyperplasia of breast (~2008) Kidney stones 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 Morbid obesity Obstructive sleep apnea Pulmonary embolism (~1982) Tubular adenoma (~2005) Family History Family History Father Colon cancer Maternal Aunt Stomach cancer Paternal Aunt Colon cancer Mother Diabetes Heart disease Family history of problems with anesthesia: No Surgical History Surgical History H/O breast biopsy History of colonoscopy History of laparoscopic cholecystectomy Previous section History of Problems with Anesthesia: No Social History Social History Household Members: Family Housing: Apartment Are you a primary health and social care teacher to a significant other at home: No Do you presently have visiting nurse or other home services: Yes ([facility]) Alcohol intake: never Patient Tobacco Use Status: Never used Tobacco Are you DNR?: No Advance Directives: No Advance Directives Information Provided: Yes Nutrition Risks: No Nutritional Risk service: No Current occupational status: disabled Meds Allergies Allergy/AdvReac Type Severity Reaction Status Date / Time No Known Allergies Allergy Unknown Verified 05/10/22 10:18 Home Medications Medication Instructions Recorded Confirmed Last Taken Type atorvastatin 10 mg tablet 10 mg PO BEDTIME 05/01/20 05/10/22 08/31/21 History ferrous sulfate 325 mg (65 mg 325 mg PO BID 05/01/20 05/10/22 08/31/21 History iron) tablet (iron) letrozole 2.5 mg tablet 2.5 mg PO DAILY 05/01/20 05/10/22 08/31/21 History lurasidone 80 mg tablet (Latuda) 80 mg PO BEDTIME 05/01/20 05/10/22 08/31/21 History melatonin 5 mg tablet 5 mg PO BEDTIME 05/01/20 05/10/22 08/31/21 History omeprazole 20 mg capsule,delayed 20 mg PO DAILY 05/01/20 05/10/22 08/31/21 History release vortioxetine 20 mg tablet 20 mg PO DAILY 05/01/20 05/10/22 08/31/21 History (Trintellix) clonazepam 1 mg tablet 1 tab PO TID PRN Anxiety 09/01/21 05/10/22 Unknown History famotidine 40 mg tablet 1 tab PO BEDTIME 09/01/21 05/10/22 08/31/21 History fluticasone propionate 220 1 puff PO BID 09/01/21 05/10/22 05/10/22 History mcg/actuation HFA aerosol inhaler (Flovent HFA) cyanocobalamin (vitamin B-12) 1,000 mcg subcut QMONTH 04/25/22 05/10/22 Unknown History 1,000 mcg/mL injection solution clindamycin 1 %-benzoyl peroxide 5 1 appl topical BID 05/09/22 05/09/22 Unknown History % topical gel meclizine 1 mg PO DAILY 05/09/22 05/09/22 Unknown History zolpidem 10 mg tablet 1 tab PO BEDTIME PRN Sleep 05/09/22 05/09/22 Unknown History Exam Airway Mallampati Class: IV TM Dist: <=3cm Neck ROM: Full (short thick neck ) Loose/Missing/Broken Teeth: Yes (Poor dentition overall ) Heart: S1,S2 Lungs: distant breath sounds Assessment and Plan Assessment Anesthesia Assessment: Anesthesia Plan Discussed Final Anesthetic Review Family History of Problems with Anesthesia: No History of Problems with Anesthesia: No NPO: Yes ASA Class: III Final Preanesthetic Review: Meds/Allgs Chart Reviewed, Consent Obtained/Reviewed and Anes Risks/Benef Reviewed Patient Risk: High Procedure Risk: Intermediate Anesthetic Plan Anesthetic Plan: MAC: Disposition: Standard PACU
[2022-05-10 10:28] VITALS: BMI 40.7
[2022-05-10] MEDS: Lactated Ringers 1,000 ML 100 ML IVCONT (10:39)
[2022-05-10 10:53] VITALS: BP 154/85; PULSE 82; RESP 18; TEMP 36.6; O2SAT 97
--- NOTE | 2022-05-10 13:07 | PM.OP ---
Brief Operative Note Date of Service: 05/10/22 Pre-op diagnosis: Anemia Post-op diagnosis: other (Hiatal hernia, Gastric polyp, Colon polyp) Procedure: EGD with biopsies, Colonoscopy to the cecum and TI with bx/removal of polyp Surgeon: Reece Glez Anesthesia: MAC Was an Copy Room Technician used for this Procedure?: No Estimated blood loss (mL): 2.0 Pathology: other (A. Descending duodenum B. Gastric antrum C. Gastric polyp D. Ascending colon polyp) Condition: stable Disposition: PACU
[2022-05-10 13:15] VITALS: BP 136/79; PULSE 100; RESP 17; TEMP 36.6; O2SAT 99
[2022-05-10 13:30] VITALS: BP 135/81; PULSE 86; RESP 18; O2SAT 97
[2022-05-10 13:45] VITALS: BP 139/88; PULSE 89; RESP 19; TEMP 36.7; O2SAT 97
--- NOTE | 2022-05-11 06:54 | OP_ITS ---
SURGEON: Reece Glez MD INDICATIONS: The patient presents for followup of personal history of tubular adenomas of the colon, iron deficiency anemia, and B12 deficiency, as well as a positive blood test for celiac disease. Full consent has been obtained from her for both procedures, including risks of bleeding and perforation. PREOPERATIVE DIAGNOSIS: POSTOPERATIVE DIAGNOSIS: PROCEDURE PERFORMED: Esophagogastroduodenoscopy with biopsies, and colonoscopy to the cecum and terminal ileum with biopsy and removal of polyp. ESTIMATED BLOOD LOSS: COMPLICATIONS: ANESTHESIA: Monitored anesthesia care. ASSISTANTS: SPECIMENS: PREOPERATIVE DIAGNOSES: Personal history of tubular adenomas of the colon, colorectal cancer screening, anemia, B12 deficiency, positive blood test for celiac disease. POSTOPERATIVE DIAGNOSES: Personal history of tubular adenomas of the colon, colorectal cancer screening, anemia, B12 deficiency, positive blood test for celiac disease, hiatal hernia, gastric polyp, mild gastritis, colon polyp, diverticulosis, and internal hemorrhoids. DESCRIPTION OF PROCEDURE: The patient was placed in the left lateral decubitus position. The Olympus video gastroscope was passed in the posterior oropharynx and upper esophagus under direct vision. The scope was passed slowly to the distal esophagus. The gastroesophageal junction appeared at 35 cm. There was no sign of any esophagitis nor Kirkland's esophagus. There was a small to moderate-sized hiatal hernia. On a fold in the hiatal hernia was a single polyp, which appeared to be hyperplastic. Biopsies were obtained. The scope was advanced to the pylorus, and the duodenum was cannulated to the descending portion. The duodenum including the bulb appeared normal without mass or ulceration. Biopsies were obtained from the 2nd and 3rd portions of duodenum. The scope was withdrawn back in the stomach. The gastric antrum had some mild changes of gastritis with some edema and erythema. Biopsies were obtained from the gastric antrum. There was good peristalsis. The scope was retroflexed visualizing the proximal stomach carefully, which appeared normal, without any sign of mass or ulceration. The scope was straightened and withdrawn back in the esophagus. The esophageal mucosa appeared normal. The scope was withdrawn from the patient she was turned around for the colonoscopy. The digital rectal exam revealed no abnormalities. The Olympus video pediatric colonoscope was entered into the rectum and advanced easily to the cecum. Once in the cecum, I did identify normal-appearing cecal pouch with appendiceal orifice and a normal-appearing ileocecal valve. I did obtain a good en face visualization of the ileocecal valve and this appeared normal without any sign of residual polyp tissue. The terminal ileum was cannulated and appeared normal. The scope was withdrawn back in the colon. The cecum appeared normal. The scope was slowly withdrawn assessing all mucosal surfaces carefully. Preparation was excellent. In the ascending colon was an approximately 5 mm polyp, which was biopsied and completely removed with a cold biopsy forceps. I did not visualize any other polyps, colitis, or angiodysplasia. Her anastomosis appeared normal at 20cm, without any sign of inflammation nor stricture. Of note, preparation was somewhat limited in the left colon, although the majority of this was all irrigated and suctioned away. In the rectum, scope was retroflexed visualizing some small internal hemorrhoids. The scope was straightened and withdrawn from the patient. She tolerated the procedures well and was returned to the recovery area in stable condition. IMPRESSION: 1. Small colon polyp, status post biopsy and removal. 2. Diverticulosis. 3. Internal hemorrhoids. 4. Hiatal hernia. 5. Gastric polyp. 6. Rule out celiac disease. 7. Mild gastritis. PLAN: The results of the biopsies will be checked. She will continue her iron and B12 supplements. She should have a repeat colonoscopy in 3 years for further surveillance. She will be followed up in the office as needed. MD ROMA Prieto/NATALYA / [phone] MTDKunal
== END 2022-05-10 14:06 | disposition home or self-care (01) ==
PROVIDERS: PCP Internal Medicine Geriatric Medicine; Visit Provider Internal Medicine
PROC: (CPT 45380; principal; 2022-05-10 11:30)
DX: Z12.11 Encounter for screening for malignant neoplasm of colon (principal); Z86.010 Personal history of colon polyps; Z80.0 Family history of malignant neoplasm of digestive organs; D12.2 Benign neoplasm of ascending colon; K57.30 Diverticulosis of large intestine without perforation or abscess without bleeding; K64.8 Other hemorrhoids; D50.9 Iron deficiency anemia, unspecified; K31.7 Polyp of stomach and duodenum; K29.60 Other gastritis without bleeding; K44.9 Diaphragmatic hernia without obstruction or gangrene; K21.9 Gastro-esophageal reflux disease without esophagitis; E53.8 Deficiency of other specified B group vitamins; R76.8 Other specified abnormal immunological findings in serum; J45.909 Unspecified asthma, uncomplicated; G47.33 Obstructive sleep apnea (adult) (pediatric); Z79.82 Long term (current) use of aspirin; Z79.899 Other long term (current) drug therapy; Z79.811 Long term (current) use of aromatase inhibitors; Z98.0 Intestinal bypass and anastomosis status; Z90.49 Acquired absence of other specified parts of digestive tract
CPT/HCPCS: 45380; 43239; 88305; 88342; J3010

== ENCOUNTER 2022-07-02 16:28 | Emergency (ER) | payer MEDICAID, SELFPAY ==
[2022-07-02 17:01] VITALS: BP 130/64; PULSE 110; RESP 18; TEMP 36.8; O2SAT 98; BMI 40.3
[2022-07-02 21:17] LABS: MANUAL DIFF FLAG NO
[2022-07-02 21:20] LABS: Basophils Absolute Auto 0.1 X10*3/uL (0.0-0.2); Basophils Percent Auto 0.8 % (0-2); Eosinophils Percent Auto 0.2 % (0-4); Hematocrit 33.8 % (37.0-47.0); Hemoglobin 10.3 g/dl (12.0-16.0); Imm Gran Abs Auto 0.01 X10*3/uL (0.00-0.03); Imm Gran Pct Auto 0.2 % (0.0-0.4); Lymphocytes Absolute Auto 1.1 X10*3/uL (1.2-4.9); Lymphocytes Percent Auto 17.8 % (20-40); Mean Corpuscular HGB Conc 30.5 g/dl (31.0-35.0); Mean Corpuscular Hemoglobin 23.9 pg (27.0-33.0); Mean Corpuscular Volume 78.4 fL (80.0-98.0); Mean Platelet Volume 10.4 fL (9.4-12.3); Monocytes Absolute Auto 0.8 X10*3/uL (0.1-1.2); Monocytes Percent Auto 11.9 % (2-11); Neutrophils Absolute Auto 4.4 x10*3/uL (2.0-8.3); Neutrophils Percent Auto 69.1 % (45-73); Platelet Count 279 X10*3/uL (160-400); Red Blood Count 4.31 X10*6/uL (4.20-5.50); Red Cell Distribution Width 16.9 % (11.0-16.0); White Blood Count 6.4 X10*3/uL (4.8-10.8)
[2022-07-02 21:32] LABS: Alanine Aminotransferase 21 U/L (0-31); Albumin Level 3.9 g/dL (3.5-5.0); Alkaline Phosphatase 187 U/L (39-117); Anion Gap 11 (12-20); Aspartate Amino Transferase 43 U/L (5-31); Bilirubin Total 0.5 mg/dL (0.0-1.0); Blood Urea Nitrogen 9 mg/dL (9-16); Calcium 8.7 mg/dL (8.4-10.2); Carbon Dioxide 25 mmol/L (22-29); Chloride 104 mmol/L (96-108); Creatinine Clr Calc Pharmacy 99.2; Estimated Glomerular Filt Rate > 60; Glucose Random 108 mg/dL (60-115); Potassium 3.6 mmol/L (3.3-5.1); Sodium 136 mmol/L (135-145); Total Protein 6.7 g/dL (6.5-8.0)
[2022-07-02 23:27] VITALS: BP 128/72; PULSE 87; RESP 18; TEMP 37.2; O2SAT 99
--- NOTE | 2022-07-02 23:33 | PC.NURSE ---
Pt. reported rectal bleeding that has since stopped. Pt. reports taking immodium which was effective and stopped her diarrhea.
--- NOTE | 2022-07-02 23:36 | ED.GENADULT ---
HPI - General Adult General Chief complaint: General Medical Stated complaint: bleeding Time Seen by Provider: 07/02/22 23:33 Source: patient Mode of arrival: ambulatory Limitations: no limitations History of Present Illness HPI narrative: Patient with history of recurrent lower GI bleed last one was in 09/04 when nuclear scan showed likely diverticular bleed. Patient with history of colonic polyps had colonoscopy on 05/10 and polyp was removed pathology showed tubular adenoma negative for high-grade dysplasia or carcinoma Related Data Home Medications Medication Instructions Recorded Confirmed atorvastatin 10 mg tablet 10 mg PO BEDTIME 05/01/20 05/10/22 ferrous sulfate 325 mg (65 mg 325 mg PO BID 05/01/20 05/10/22 iron) tablet (iron) letrozole 2.5 mg tablet 2.5 mg PO DAILY 05/01/20 05/10/22 lurasidone 80 mg tablet (Latuda) 80 mg PO BEDTIME 05/01/20 05/10/22 melatonin 5 mg tablet 5 mg PO BEDTIME 05/01/20 05/10/22 omeprazole 20 mg capsule,delayed 20 mg PO DAILY 05/01/20 05/10/22 release vortioxetine 20 mg tablet 20 mg PO DAILY 05/01/20 05/10/22 (Trintellix) clonazepam 1 mg tablet 1 tab PO TID PRN Anxiety 09/01/21 05/10/22 famotidine 40 mg tablet 1 tab PO BEDTIME 09/01/21 05/10/22 fluticasone propionate 220 1 puff PO BID 09/01/21 05/10/22 mcg/actuation HFA aerosol inhaler (Flovent HFA) cyanocobalamin (vitamin B-12) 1,000 mcg subcut QMONTH 04/25/22 05/10/22 1,000 mcg/mL injection solution clindamycin 1 %-benzoyl peroxide 5 1 appl topical BID 05/09/22 05/09/22 % topical gel meclizine 1 mg PO DAILY 05/09/22 05/09/22 zolpidem 10 mg tablet 1 tab PO BEDTIME PRN Sleep 05/09/22 05/09/22 Allergies Allergy/AdvReac Type Severity Reaction Status Date / Time No Known Allergies Allergy Unknown Verified 05/10/22 10:18 Review of Systems Review of Systems: Yes all other systems are reviewed and are negative PMFSH Past Medical History Medical History Anxiety Anxiety and depression Arthralgia Asthma Atypical ductal hyperplasia of left breast Bipolar affective disorder Diverticulitis GERD (gastroesophageal reflux disease) GI bleed (~04/2019) History of atypical hyperplasia of breast (~2008) Kidney stones 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 Morbid obesity Obstructive sleep apnea Pulmonary embolism (~1982) Tubular adenoma (~2005) Surgical History H/O breast biopsy History of colonoscopy History of laparoscopic cholecystectomy Previous section Family History Family History Father Colon cancer Maternal Aunt Stomach cancer Paternal Aunt Colon cancer Mother Diabetes Heart disease Social History Social History Household Members: Family Housing: Apartment Are you a primary long term care phlebotomist to a significant other at home: No Do you presently have visiting nurse or other [facility] services: [facility] Alcohol intake: never Patient Tobacco Use Status: Never used Tobacco Smoked in Last 30 Days: No Use of substances other than those prescribed or required for medical reasons: No Advance Directives: No Advance Directives Information Provided: No Patient : No service: No Current occupational status: disabled Physical Exam ED Vital Signs: Vital Signs - 24 hr 07/02/22 17:01 07/02/22 23:27 07/03/22 00:31 Temperature 98.2 F 98.9 F Pulse Rate 110 H 87 81 Respiratory Rate 18 18 Blood Pressure 130/64 128/72 138/75 Pulse Oximetry 98 99 Oxygen Delivery Method Room Air Room Air 07/03/22 00:33 07/03/22 00:34 Temperature Pulse Rate 99 94 Respiratory Rate Blood Pressure 148/75 H 158/74 H Pulse Oximetry Oxygen Delivery Method BMI result Body Mass Index 40.3 Appearance: Alert. Oriented X3. No acute distress. Obese Eyes: No pallor or icterus ENT: Pharynx normal. Oral Mucosa moist Neck: Normal inspection. Neck supple. CVS: Normal heart rate and rhythm. Pulses normal. Respiratory: No respiratory distress. Equal air entry bilateral, no wheezing/rales/rhonchi Abdomen: Soft and nontender. Bowel sounds are present, no mass palpable, no CVA tenderness Skin: Skin warm and dry. Normal skin color. Normal skin turgor. Extremities: No lower extremity edema. No calf tenderness Neuro: Oriented X 3. No motor deficit. No sensory deficit.No cerebellar signs , cranial nerves II-XII intact Medical Decision Making Medical Decision Making [facility] Narrative: Patient has stable H&H minor rectal bleed with history of same in 09/04 in diagnosed with diverticular bleed patient colonoscopy 05/04 which did not show any active bleeding. Patient vitals and stable H&H stable orthostatics stable will discharge patient home advised to have clear liquid food advanced as tolerated and report to the ER if worsening of bleed Lab Data [facility] Lab Attestation statement: I reviewed the patient's lab results. Result Diagrams: 07/02/22 21:12 07/02/22 21:12 Labs: Lab Results 07/02/22 07/02/22 Range/Units 21:12 21:12 WBC 6.4 (4.8-10.8) X10*3/uL RBC 4.31 (4.20-5.50) X10*6/uL Hgb 10.3 L (12.0-16.0) g/dl Hct 33.8 L (37.0-47.0) % MCV 78.4 L (80.0-98.0) fL MCH 23.9 L (27.0-33.0) pg MCHC 30.5 L (31.0-35.0) g/dl RDW 16.9 H (11.0-16.0) % Plt Count 279 (160-400) X10*3/uL MPV 10.4 (9.4-12.3) fL Immature Gran % (Auto) 0.2 (0.0-0.4) % Neut % (Auto) 69.1 (45-73) % Lymph % (Auto) 17.8 L (20-40) % Slope % (Auto) 11.9 H (2-11) % Eos % (Auto) 0.2 (0-4) % Baso % (Auto) 0.8 (0-2) % Lymph # (Auto) 1.1 L (1.2-4.9) X10*3/uL Slope # (Auto) 0.8 (0.1-1.2) X10*3/uL Eos # (Auto) 0.0 (0.0-0.4) X10*3/uL Baso # (Auto) 0.1 (0.0-0.2) X10*3/uL Abs Immat Gran (auto) 0.01 (0.00-0.03) X10*3/uL Absolute Neuts (auto) 4.4 (2.0-8.3) x10*3/uL Absolute Nucleated RBC 0.000 (0.0-0.012) X10*3/uL Nucleated RBC % (auto) 0.0 (0.0-0.2) /100WBC Sodium 136 (135-145) mmol/L Potassium 3.6 (3.3-5.1) mmol/L Chloride 104 (96-108) mmol/L Carbon Dioxide 25 (22-29) mmol/L Anion Gap 11 L (12-20) BUN 9 (9-16) mg/dL Creatinine 0.78 (0.5-1.4) mg/dL Estim Creat Clear Calc 99.2 Estimated GFR > 60 Random Glucose 108 (60-115) mg/dL Calcium 8.7 (8.4-10.2) mg/dL Total Bilirubin 0.5 (0.0-1.0) mg/dL AST 43 H (5-31) U/L ALT 21 (0-31) U/L Alkaline Phosphatase 187 H (39-117) U/L Total Protein 6.7 (6.5-8.0) g/dL Albumin 3.9 (3.5-5.0) g/dL Discharge Plan Discharge Clinical Impression: Acute lower GI bleeding Patient Disposition: Home, Self-Care Instructions: Rectal Bleeding (ED) Additional Instructions: Drink plenty of fluids Clear diet , advanced as tolerated Report to the ER if worsening of the bleed/abdominal pain Prescriptions: No Action atorvastatin 10 mg Tablet 10 mg PO BEDTIME ferrous sulfate [iron] 325 mg (65 mg iron) Tablet 325 mg PO BID omeprazole 20 mg Capsule,Delayed Release(Dr/Ec) 20 mg PO DAILY letrozole 2.5 mg Tablet 2.5 mg PO DAILY melatonin 5 mg Tablet 5 mg PO BEDTIME Latuda 80 mg Tablet 80 mg PO BEDTIME Trintellix 20 mg Tablet 20 mg PO DAILY cyanocobalamin (vitamin B-12) [Vitamin B-12] 1,000 mcg/mL Solution 1,000 mcg SUBCUT QMONTH fluticasone propionate [Flovent HFA] 220 mcg/actuation HFA aerosol inhaler 1 puff PO BID famotidine 40 mg tablet 1 tab PO BEDTIME clonazepam 1 mg tablet 1 tab PO TID PRN (Reason: Anxiety) clindamycin-benzoyl peroxide 1-5 % Gel 1 appl TOPICAL BID zolpidem 10 mg tablet 1 tab PO BEDTIME PRN (Reason: Sleep) meclizine 1 mg PO DAILY
[2022-07-03 00:31] VITALS: BP 138/75; PULSE 81
[2022-07-03 00:33] VITALS: BP 148/75; PULSE 99
[2022-07-03 00:34] VITALS: BP 158/74; PULSE 94
== END 2022-07-03 01:02 | disposition home or self-care (01) ==
PROVIDERS: Emergency Provider Internal Medicine; PCP Internal Medicine Geriatric Medicine
DX: K92.2 Gastrointestinal hemorrhage, unspecified (principal); E66.01 Morbid (severe) obesity due to excess calories; Z68.41 Body mass index [BMI] 40.0-44.9, adult
CPT/HCPCS: 36415; 80053; 85025; 99283; 99284

== ENCOUNTER 2022-07-30 15:39 | Outpatient (REF) | payer MEDICAID, SELFPAY ==
[2022-07-30 16:48] LABS: Estimated Average Glucose 123 mg/dL; Hemoglobin A1c % 5.9 %
[2022-07-30 17:04] LABS: Cholesterol 154 mg/dL; HDL Cholesterol 35 mg/dL; LDL Cholesterol Calculated 92 mg/dl; Triglycerides 139 mg/dL
== END 2022-07-30 15:40 | disposition home or self-care (01) ==
LOC: HO.LAB 15:39
PROVIDERS: PCP Internal Medicine Geriatric Medicine; Visit Provider Registered Nurse
DX: F43.10 Post-traumatic stress disorder, unspecified (principal); Z63.4 Disappearance and death of family member; Z79.899 Other long term (current) drug therapy
CPT/HCPCS: 36415; 80061; 83036

== ENCOUNTER 2023-03-28 15:50 | Outpatient (REF) | payer MEDICAID, SELFPAY ==
--- NOTE | ~2023-03-28 | MM_ITS ---
EXAMINATION: MM SCREENING DIGITAL BREAST TOMOSYNTHESIS, BILATERAL CLINICAL INFORMATION: Screening. Asymptomatic. The patient is status post right breast surgery in [address] her at increased risk of breast cancer. These include focal atypical ductal hyperplasia, LCIS and flat epithelial atypia. COMPARISON: Mammography: This study is compared with prior exams dating back to 2019. TECHNIQUE: Digital breast tomosynthesis is performed in both the craniocaudal and mediolateral oblique views along with computer-aided detection (CAD). Synthesized 2D images are generated from the tomosynthesis. FINDINGS: There are scattered areas of fibroglandular density (ACR BI-RADS breast composition Category b). There are no significant masses, abnormal calcifications, or other abnormalities. There are minor postsurgical changes in the right breast and benign calcification unchanged, from prior studies. MM/MM tomosynthesis screening BI IMPRESSION: No mammographic evidence of malignancy. ASSESSMENT: BI-RADS BI-RADS 2 - Benign Findings RECOMMENDATION: Routine annual mammography screening. 1 year F/U This examination should not preclude the clinical evaluation of a suspicious palpable abnormality. This patient's information was entered into a reminder system with a target due date for their next mammogram.
== END 2023-03-28 15:51 | disposition home or self-care (01) ==
LOC: HO.MAMMO 15:50
PROVIDERS: PCP Internal Medicine Geriatric Medicine; Visit Provider Internal Medicine Geriatric Medicine
DX: Z12.31 Encounter for screening mammogram for malignant neoplasm of breast (principal)
CPT/HCPCS: 77063; 77067

== ENCOUNTER → 2023-03-28 16:00 | Outpatient (BNV) | payer MEDICAID, SELFPAY | PROVIDERS: PCP Internal Medicine Geriatric Medicine; Visit Provider Radiology Diagnostic Radiology | DX: Z12.31 Encounter for screening mammogram for malignant neoplasm of breast (principal) | CPT/HCPCS: 77063; 77067 ==

== ENCOUNTER 2023-07-29 16:05 | Outpatient (REF) | payer MEDICAID, SELFPAY ==
[2023-07-29 17:27] LABS: Appearance Urine Turbid; Color Urine Yellow; Glucose Urine UA Negative (Negative); Leukocyte Esterase Urine Small (1+) (Negative); Nitrite Urine Negative (Negative); PH 5.5 (5.0-9.0); Specific Gravity - Urine 1.025 (1.005-1.025); UMIC TRIGGER UACC YES; Urine Blood Negative (Negative); Urine Ketones Trace mg/dL (Negative); Urine Protein Negative (Neg-Trace)
[2023-07-29 17:38] LABS: Bacteria Urine None Seen (None Seen); Calcium Oxalate Crystals Urine Present; Hyaline Casts Urine 0-2 /LPF (0-2); Squamous Epithelial Cell Urine 0-2 /HPF (0-2); UACC Culture Trigger YES
[2023-07-29 17:40] LABS: RBC Urine 0-2 /HPF (0-2)
== END 2023-07-29 16:06 | disposition home or self-care (01) ==
LOC: HO.HHCL 16:05
PROVIDERS: Visit Provider Internal Medicine Geriatric Medicine
DX: N89.8 Other specified noninflammatory disorders of vagina (principal)
CPT/HCPCS: 81001; 87086; 87088; 87186

== ENCOUNTER 2023-08-25 15:49 | Outpatient (REF) | payer MEDICAID, SELFPAY ==
[2023-08-26 02:51] LABS: Vitamin B12 839 pg/mL (200-900)
== END 2023-08-25 15:50 | disposition home or self-care (01) ==
LOC: HO.LAB 15:49
PROVIDERS: PCP Internal Medicine Geriatric Medicine; Visit Provider Internal Medicine
DX: E53.8 Deficiency of other specified B group vitamins (principal)
CPT/HCPCS: 36415; 82607

== ENCOUNTER 2023-12-05 20:37 | Emergency (ER) | payer MEDICAID, SELFPAY ==
--- NOTE | ~2023-12-05 | CT_ITS ---
EXAMINATION: CT ABDOMEN AND PELVIS WITHOUT CONTRAST CLINICAL INFORMATION: Flank pain. COMPARISON: 09/01/2023 TECHNIQUE: Multidetector volumetric imaging was performed from the superior aspect of the liver through the pubic symphysis. Sagittal and coronal reformatted images were obtained on the technologist's workstation. This CT examination was performed using dose optimization techniques as appropriate, variously including the following: *Automated exposure control *Adjustment of mA and/or kV according to patient size (this includes techniques or standardized protocols for targeted exams where dose is matched to indication/reason for exam; i.e. extremities or head) *Use of iterative reconstruction technique DLP: 814 mGy-cm FINDINGS: LUNG BASES: The visualized lung bases are unremarkable. LIVER, GALLBLADDER, AND BILIARY TREE: The liver is normal in size, shape, and attenuation. No focal hepatic lesion or biliary ductal dilatation is present. There has been a prior cholecystectomy. PANCREAS: Unremarkable. SPLEEN: Unremarkable. ADRENAL GLANDS: Unremarkable. KIDNEYS AND URETERS: The kidneys are normal in size, location and attenuation. There is a nonobstructing 2 mm calculus lower pole right kidney. There is no hydronephrosis. BLADDER: Unremarkable. GASTROINTESTINAL TRACT: There is diffuse diverticulosis without diverticulitis. The appendix is visualized and is within normal limits. ABDOMINAL WALL: There is a left mid abdominal wall hernia containing fat. LYMPH NODES: Normal. VASCULAR: Unremarkable. PELVIC VISCERA: There is a cystic structure within the central pelvis measuring 9.1 cm previously measuring 8.3 cm. OSSEOUS STRUCTURES: There is diffuse thoracolumbar disc degenerative change. CT/CT abdomen pelvis wo IV con IMPRESSION: 1. Nonobstructing 2 mm calculus lower pole right kidney. No hydronephrosis. 2. Enlarging cystic structure within the central pelvis measuring 9.1 cm previously measuring 8.3 cm. 3. Diverticulosis without diverticulitis. 4. Left mid abdominal wall hernia containing fat. Fleischner guidelines were followed.
[2023-12-05 21:06] VITALS: BP 94/50; PULSE 72; RESP 16; TEMP 36.1; O2SAT 98; BMI 39.2
--- NOTE | 2023-12-05 21:26 | MHC.EDTECH ---
patient blood drawn and sent to lab .
[2023-12-05 21:27] LABS: MANUAL DIFF FLAG NO
[2023-12-05 21:29] LABS: Basophils Absolute Auto 0.1 X10*3/uL (0.0-0.2); Eosinophils Absolute Auto 0.2 X10*3/uL (0.0-0.4); Eosinophils Percent Auto 2.7 % (0-4); Hematocrit 41.2 % (37.0-47.0); Hemoglobin 13.2 g/dl (12.0-16.0); Imm Gran Abs Auto 0.04 X10*3/uL (0.00-0.03); Imm Gran Pct Auto 0.5 % (0.0-0.4); Lymphocytes Absolute Auto 1.9 X10*3/uL (1.2-4.9); Lymphocytes Percent Auto 25.4 % (20-40); Mean Corpuscular Hemoglobin 27.8 pg (27.0-33.0); Mean Corpuscular Volume 86.7 fL (80.0-98.0); Mean Platelet Volume 10.3 fL (9.4-12.3); Monocytes Absolute Auto 0.8 X10*3/uL (0.1-1.2); Monocytes Percent Auto 10.6 % (2-11); Neutrophils Absolute Auto 4.6 x10*3/uL (2.0-8.3); Neutrophils Percent Auto 59.8 % (45-73); Platelet Count 308 X10*3/uL (160-400); Red Blood Count 4.75 X10*6/uL (4.20-5.50); Red Cell Distribution Width 13.3 % (11.0-16.0); White Blood Count 7.6 X10*3/uL (4.8-10.8)
[2023-12-05 21:42] LABS: Alanine Aminotransferase 8 U/L (0-31); Albumin Level 3.9 g/dL (3.5-5.0); Alkaline Phosphatase 131 U/L (39-117); Anion Gap 15 (12-20); Aspartate Amino Transferase 10 U/L (5-31); Bilirubin Total 0.3 mg/dL (0.0-1.0); Blood Urea Nitrogen 10 mg/dL (9-16); Calcium 9.2 mg/dL (8.4-10.2); Carbon Dioxide 25 mmol/L (22-29); Chloride 107 mmol/L (96-108); Creatinine Clr Calc Pharmacy 78.4; Estimated Glomerular Filt Rate 59; Glucose Random 83 mg/dL (60-115); Potassium 3.8 mmol/L (3.3-5.1); Sodium 143 mmol/L (135-145); Total Protein 7.3 g/dL (6.5-8.0)
[2023-12-06 02:02] VITALS: BP 112/56; PULSE 70; RESP 16; TEMP 36.1; O2SAT 97
--- NOTE | 2023-12-06 02:04 | ED_ITS ---
HPI - General Adult General Chief complaint: Back Pain/Injury Stated complaint: lower back pain, no inj Time Seen by Provider: 12/06/23 02:04 History of Present Illness HPI narrative: The patient is a 58-year-old woman who presents for evaluation of right lower back pain that she says has been bothering her for 2 days and which she thinks could be a kidney stone. There has been no injury. She has had kidney stone in the past. Related Data Home Medications ?Medication ?Instructions ?Recorded ?Confirmed atorvastatin 10 mg tablet 10 mg PO BEDTIME 05/01/20 11/19/23 ferrous sulfate 325 mg (65 mg 325 mg PO BID 05/01/20 11/19/23 iron) tablet (iron) lurasidone 80 mg tablet (Latuda) 80 mg PO BEDTIME 05/01/20 11/19/23 melatonin 5 mg tablet 5 mg PO BEDTIME 05/01/20 11/19/23 omeprazole 20 mg capsule,delayed 20 mg PO DAILY 05/01/20 11/19/23 release vortioxetine 20 mg tablet 20 mg PO DAILY 05/01/20 11/19/23 (Trintellix) clonazepam 1 mg tablet 1 tab PO TID PRN Anxiety 09/01/21 11/19/23 famotidine 40 mg tablet 1 tab PO BEDTIME 09/01/21 11/19/23 fluticasone propionate 220 1 puff PO BID 09/01/21 11/19/23 mcg/actuation HFA aerosol inhaler (Flovent HFA) cyanocobalamin (vitamin B-12) 1,000 mcg subcut QMONTH 04/25/22 11/19/23 1,000 mcg/mL injection solution clindamycin 1 %-benzoyl peroxide 5 1 appl topical BID 05/09/22 11/19/23 % topical gel meclizine 1 mg PO DAILY 05/09/22 11/19/23 zolpidem 10 mg tablet 1 tab PO BEDTIME PRN Sleep 05/09/22 11/19/23 clonidine HCl 0.1 mg tablet 0.1 mg PO BEDTIME 05/21/23 11/19/23 Previous Rx's ?Medication ?Instructions ?Recorded cephalexin 500 mg capsule 500 mg PO BID #10 caps 12/06/23 cyclobenzaprine 10 mg tablet 10 mg PO TID PRN muscle spasm #14 12/06/23 tabs morphine 15 mg immediate release 15 mg PO Q6H PRN pain #12 tabs 12/06/23 tablet Allergies Allergy/AdvReac Type Severity Reaction Status Date / Time No Known Allergies Allergy Unknown Verified 12/05/23 21:09 Review of Systems 2 Review of Systems: Yes all other systems are reviewed and are negative [facility] Past Medical History Medical History Anxiety Anxiety and depression Arthralgia Asthma Atypical ductal hyperplasia of left breast Bipolar affective disorder Diverticulitis GERD (gastroesophageal reflux disease) GI bleed (~04/2019) History of atypical hyperplasia of breast (~2008) Kidney stones 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 Morbid obesity Obstructive sleep apnea Pulmonary embolism (~1982) Tubular adenoma (~2005) Surgical History H/O breast biopsy History of colonoscopy History of laparoscopic cholecystectomy Previous section Family History Family History Father Colon cancer Maternal Aunt Stomach cancer Paternal Aunt Colon cancer Mother Diabetes Heart disease Social History Social History Household Members: Family Housing: Apartment Are you a primary child day care center worker to a significant other at home: No Do you presently have visiting nurse or other home services: Yes (A - [facility]) Alcohol intake: never Patient Tobacco Use Status: Never used Tobacco Advance Directives: No Advance Directives Information Provided: Yes service: No Current occupational status: disabled Physical Exam ED Vital Signs: Vital Signs - 24 hr 12/05/23 21:06 12/06/23 02:02 12/06/23 04:50 Temperature 97.0 F 97.0 F 98.3 F Pulse Rate 72 70 51 Respiratory Rate 16 16 16 Blood Pressure 94/50 L 112/56 L 118/59 L Pulse Oximetry 98 97 96 Oxygen Delivery Method Room Air Room Air Room Air 12/06/23 05:32 Temperature 98.6 F Pulse Rate 68 Respiratory Rate 16 Blood Pressure 120/64 Pulse Oximetry 96 Oxygen Delivery Method Room Air BMI result Body Mass Index 39.2 Const Other: The patient is awake and alert. She does not appear obviously ill or uncomfortable. She says she is quite uncomfortable however. HENMT Other: Face is symmetrical. Mucous membranes moist Eyes Other: The round equal, conjunctivae are clear Neck Other: Moving her neck easily Resp Effort & Inspection: normal respiratory effort Auscultation: clear to auscultation bilaterally Cardio Rate: regular rate Rhythm: regular rhythm Heart sounds: S1 normal heart sound present and S2 normal heart sound present GI Other: Abdomen is soft and nontender Back/Spine/Pelvis Other: The patient has diffuse tenderness with palpation of much of the back. There seems to be some possible right-sided CVA percussion tenderness. Skin Other: Skin is dry and unremarkable Neuro Other: The patient is awake and alert. Mental status is normal. Cranial nerves are grossly intact. She moves her extremities symmetrically. She ambulates with a walker which is her baseline. No footdrop. Extrem Other: No peripheral edema Medications Administered Discontinued Medications Generic Name Dose Route Start Last Admin Trade Name Freq PRN Reason Stop Dose Admin Cephalexin HCl 500 mg 12/06/23 05:18 12/06/23 05:28 Cephalexin 500 Mg Capsule PO 12/06/23 05:19 500 mg ONCE ONE Administration Ketorolac Tromethamine 30 mg 12/06/23 02:10 12/06/23 02:52 Ketorolac Tromethamine 30 Mg/Ml Vial IM 12/06/23 02:11 30 mg ONCE ONE Administration Oxycodone HCl 5 mg 12/06/23 03:32 12/06/23 03:48 Oxycodone Hcl Immed Release 5 Mg Tablet PO 12/06/23 03:33 5 mg ONCE ONE Administration Medical Decision Making Medical Decision Making [facility] Narrative: The patient is here for right lower back pain. The patient initially said that it felt like kidney stone pain that she has had before. However when a CT was done that showed no ureteral stone she then describes the pain as going more down her right leg. Perhaps this is a musculoskeletal sciatica like syndrome. She does not seem to have any acute neurological deficits. No red flags. She will be discharged with the prescriptions for cyclobenzaprine and morphine tablets. She should follow up with her PCP. Her urinalysis was potentially suggestive of a UTI although she was very vague as to whether she has true symptoms of UTI. She will be placed on a course of cephalexin. Lab Data 12/05/23 21:23 12/05/23 21:23 Labs: Lab Results 12/05/23 12/06/23 Range/Units 21:23 02:58 WBC 7.6 (4.8-10.8) X10*3/uL RBC 4.75 (4.20-5.50) X10*6/uL Hgb 13.2 (12.0-16.0) g/dl Hct 41.2 (37.0-47.0) % MCV 86.7 (80.0-98.0) fL MCH 27.8 (27.0-33.0) pg MCHC 32.0 (31.0-35.0) g/dl RDW 13.3 (11.0-16.0) % Plt Count 308 (160-400) X10*3/uL MPV 10.3 (9.4-12.3) fL Immature Gran % (Auto) 0.5 H (0.0-0.4) % Neut % (Auto) 59.8 (45-73) % Lymph % (Auto) 25.4 (20-40) % Brooks % (Auto) 10.6 (2-11) % Eos % (Auto) 2.7 (0-4) % Baso % (Auto) 1.0 (0-2) % Lymph # (Auto) 1.9 (1.2-4.9) X10*3/uL Brooks # (Auto) 0.8 (0.1-1.2) X10*3/uL Eos # (Auto) 0.2 (0.0-0.4) X10*3/uL Baso # (Auto) 0.1 (0.0-0.2) X10*3/uL Abs Immat Gran (auto) 0.04 H (0.00-0.03) X10*3/uL Absolute Neuts (auto) 4.6 (2.0-8.3) x10*3/uL Absolute Nucleated RBC 0.000 (0.0-0.012) X10*3/uL Nucleated RBC % (auto) 0.0 (0.0-0.2) /100WBC Sodium 143 (135-145) mmol/L Potassium 3.8 (3.3-5.1) mmol/L Chloride 107 (96-108) mmol/L Carbon Dioxide 25 (22-29) mmol/L Anion Gap 15 (12-20) BUN 10 (9-16) mg/dL Creatinine 0.96 (0.5-1.4) mg/dL Estim Creat Clear Calc 78.4 Estimated GFR 59 Random Glucose 83 (60-115) mg/dL Calcium 9.2 D (8.4-10.2) mg/dL Total Bilirubin 0.3 (0.0-1.0) mg/dL AST 10 (5-31) U/L ALT 8 (0-31) U/L Alkaline Phosphatase 131 H (39-117) U/L Total Protein 7.3 (6.5-8.0) g/dL Albumin 3.9 (3.5-5.0) g/dL Urine Color Dark Yellow Urine Appearance Cloudy Urine pH 5.5 (5.0-9.0) Ur Specific [place] >= 1.030 H (1.005-1.025) Urine Protein 30 (1+) H (Neg-Trace) mg/dL Urine Glucose (UA) Negative (Negative) mg/dL Urine Ketones Trace (Negative) mg/dL Urine Blood Trace H (Negative) Urine Nitrite Negative (Negative) Ur Leukocyte Esterase Small (1+) H (Negative) Urine RBC 6-10 H (0-2) /HPF Urine WBC >50 H (0-5) /HPF Ur Squamous Epith Cells 6-10 (0-2) /HPF Calcium Oxalate Crystal Present Urine Bacteria None Seen (None Seen) Hyaline Casts 6-10 (0-2) /LPF Discharge Plan Discharge Clinical Impression: Acute right-sided back pain, Abnormal urinalysis Patient Disposition: Home, Self-Care Additional Instructions: The CT scan you had today shows that you have a kidney stone in your right kidney but this is not currently in a position to cause any pain. I think your pain is more muscular pain. Continue to use acetaminophen (Tylenol). Take 2 extra-strength acetaminophen up to 3 times a day. I have also sent a prescription for a muscle relaxer (cyclobenzaprine) which you may use as well. Additionally I have sent a prescription for morphine tablets the you may also use as needed. Urinalysis suggest that you might possibly have a urinary tract infection. I have sent a prescription for an antibiotic which you should take 2 times a day. Most importantly please contact your primary care doctor's office on Friday to arrange a prompt follow-up appointment to discuss these symptoms further. Return to the emergency room if significantly worse. Prescriptions: New cephalexin 500 mg capsule 500 mg PO BID Qty: 10 0RF cyclobenzaprine 10 mg tablet 10 mg PO TID PRN (Reason: muscle spasm) Qty: 14 0RF morphine 15 mg tablet 15 mg PO Q6H PRN (Reason: pain) Qty: 12 0RF Rx Instructions: Partial Fill upon patient request. No Action atorvastatin 10 mg Tablet 10 mg PO BEDTIME ferrous sulfate [iron] 325 mg (65 mg iron) Tablet 325 mg PO BID omeprazole 20 mg Capsule,Delayed Release(Dr/Ec) 20 mg PO DAILY melatonin 5 mg Tablet 5 mg PO BEDTIME lurasidone [Latuda] 80 mg Tablet 80 mg PO BEDTIME Trintellix 20 mg Tablet 20 mg PO DAILY cyanocobalamin (vitamin B-12) [Vitamin B-12] 1,000 mcg/mL Solution 1,000 mcg SUBCUT QMONTH clonidine HCl 0.1 mg Tablet 0.1 mg PO BEDTIME fluticasone propionate [Flovent HFA] 220 mcg/actuation HFA aerosol inhaler 1 puff PO BID famotidine 40 mg tablet 1 tab PO BEDTIME clonazepam 1 mg tablet 1 tab PO TID PRN (Reason: Anxiety) clindamycin-benzoyl peroxide 1-5 % Gel 1 appl TOPICAL BID zolpidem 10 mg tablet 1 tab PO BEDTIME PRN (Reason: Sleep) meclizine 1 mg PO DAILY Referrals: Name,MD Mariano [Primary Care Provider] - (Low back pain/sciatica) Interventions: ED Discharge Assessment Last Done: 12/06/23 05:32 Discharge Date/Time: 12/06/23 05:33 Print Language: Wolof
[2023-12-06] MEDS: Ketorolac Tromethamine 30 MG/ML VIAL IM (02:52)
--- NOTE | 2023-12-06 02:54 | PC.NURSE ---
Medicated per SEP. UA obtained. Plan for CT.
--- NOTE | 2023-12-06 03:07 | PC.NURSE ---
Pt off to CT.
[2023-12-06 03:14] LABS: Appearance Urine Cloudy; Color Urine Dark Yellow; Glucose Urine UA Negative (Negative); Leukocyte Esterase Urine Small (1+) (Negative); Nitrite Urine Negative (Negative); PH 5.5 (5.0-9.0); Specific Gravity - Urine >= 1.030 (1.005-1.025); UMIC TRIGGER UACC YES; Urine Blood Trace (Negative); Urine Ketones Trace mg/dL (Negative); Urine Protein 30 (1+) mg/dL (Neg-Trace)
[2023-12-06 03:25] LABS: Bacteria Urine None Seen (None Seen); Calcium Oxalate Crystals Urine Present; UACC Culture Trigger YES; WBC Urine >50 /HPF (0-5)
[2023-12-06] MEDS: oxyCODONE HCl Immed Release 5 MG TABLET PO (03:48)
[2023-12-06 04:50] VITALS: BP 118/59; PULSE 51; RESP 16; TEMP 36.8; O2SAT 96
[2023-12-06] MEDS: cephALEXin 500 MG CAPSULE PO (05:28)
[2023-12-06 05:32] VITALS: BP 120/64; PULSE 68; RESP 16; TEMP 37; O2SAT 96
== END 2023-12-06 05:33 | disposition home or self-care (01) ==
PROVIDERS: Emergency Provider Emergency Medicine; PCP Internal Medicine Geriatric Medicine
DX: M54.50 Low back pain, unspecified (principal); N20.0 Calculus of kidney; R82.90 Unspecified abnormal findings in urine; Z87.442 Personal history of urinary calculi; Z86.711 Personal history of pulmonary embolism; Z79.02 Long term (current) use of antithrombotics/antiplatelets; Z79.899 Other long term (current) drug therapy
CPT/HCPCS: 36415; 74176; 80053; 81001; 85025; 87086; 96372; 99283; 99284; J1885

== ENCOUNTER 2024-02-03 18:41 | Emergency (ER) | payer MEDICAID, SELFPAY ==
--- NOTE | ~2024-02-03 | CT_ITS ---
EXAMINATION: CT ABDOMEN AND PELVIS WITHOUT CONTRAST CLINICAL INFORMATION: Right flank pain with history of stones COMPARISON: CT abdomen pelvis 12/06/2023 TECHNIQUE: Multidetector volumetric imaging was performed from the superior aspect of the liver through the pubic symphysis. Sagittal and coronal reformatted images were obtained on the technologist's workstation. This CT examination was performed using dose optimization techniques as appropriate, variously including the following: *Automated exposure control *Adjustment of mA and/or kV according to patient size (this includes techniques or standardized protocols for targeted exams where dose is matched to indication/reason for exam; i.e. extremities or head) *Use of iterative reconstruction technique DLP: 771 mGy-cm FINDINGS: LUNG BASES: The visualized lung bases are unremarkable. LIVER, GALLBLADDER, AND BILIARY TREE: The liver is normal in size, shape, and attenuation. No focal hepatic lesion or biliary ductal dilatation is present. Status post cholecystectomy PANCREAS: Unremarkable. SPLEEN: Unremarkable. ADRENAL GLANDS: Unremarkable. KIDNEYS AND URETERS: The kidneys are normal in size, shape, and attenuation. Again seen is a nonobstructing 2 mm right lower pole calculus. No hydronephrosis, hydroureter, or additional calculi seen. No perinephric stranding. BLADDER: Compressed by the uterus and the supra-uterine cystic mass. GASTROINTESTINAL TRACT: Tiny hiatal hernia is present. Sigmoid anastomosis is present. A large amount of stool is present in the rectum. There is no evidence of bowel obstruction. Diverticular changes are present throughout the colon without evidence of diverticulitis. The small and large bowel are otherwise unremarkable. The appendix is unremarkable. ABDOMINAL WALL: A ventral hernia containing only fat is again seen, unchanged from prior. LYMPH NODES: No retroperitoneal lymphadenopathy. VASCULAR: Unremarkable. PELVIC VISCERA: Large midline pelvic cyst measures 9.8 x 7.6 x 8.9 cm, continuing to increase in size since the prior study. An anteverted uterus is present compressed by the above-mentioned mass. OSSEOUS STRUCTURES: Degenerative changes again seen in the spine. CT/CT abdomen pelvis wo IV con IMPRESSION: 1. A cause for the patient's right flank pain has not been found. 2. Incidental note made of a nonobstructing 2 mm right lower pole renal calculus, sigmoid anastomosis, colonic diverticulosis without diverticulitis, ventral hernia containing only fat and a large pelvic cyst which is increased in size. Gynecology consultation is recommended. Fleischner guidelines were followed.
[2024-02-03 18:43] VITALS: BP 156/76; PULSE 56; RESP 20; TEMP 36.8; O2SAT 98; BMI 39.6
--- NOTE | 2024-02-03 18:43 | ED_ITS ---
HPI - Abdominal Pain General Chief Complaint: Abdominal Pain Stated Complaint: Flank pain Time Seen by Provider: 02/03/24 20:04 Source: patient Mode of arrival: ambulatory Limitations: no limitations History of Present Illness ED Provider: Dr. Jolie Pires HPI narrative: Patient comes to the emergency room complaining of right-sided flank pain that starts on the side and radiates towards the groin area. Patient states it has been almost 12 hours, intermittent pain, no hematuria or dysuria, denies nausea vomiting diarrhea, no trauma or heavy lifting. Patient states that she has had kidney stones in the past and feels similar. Related Data Home Medications ?Medication ?Instructions ?Recorded ?Confirmed atorvastatin 10 mg tablet 10 mg PO BEDTIME 05/01/20 11/19/23 ferrous sulfate 325 mg (65 mg 325 mg PO BID 05/01/20 11/19/23 iron) tablet (iron) lurasidone 80 mg tablet (Latuda) 80 mg PO BEDTIME 05/01/20 11/19/23 melatonin 5 mg tablet 5 mg PO BEDTIME 05/01/20 11/19/23 omeprazole 20 mg capsule,delayed 20 mg PO DAILY 05/01/20 11/19/23 release vortioxetine 20 mg tablet 20 mg PO DAILY 05/01/20 11/19/23 (Trintellix) clonazepam 1 mg tablet 1 tab PO TID PRN Anxiety 09/01/21 11/19/23 famotidine 40 mg tablet 1 tab PO BEDTIME 09/01/21 11/19/23 fluticasone propionate 220 1 puff PO BID 09/01/21 11/19/23 mcg/actuation HFA aerosol inhaler (Flovent HFA) cyanocobalamin (vitamin B-12) 1,000 mcg subcut QMONTH 04/25/22 11/19/23 1,000 mcg/mL injection solution clindamycin 1 %-benzoyl peroxide 5 1 appl topical BID 05/09/22 11/19/23 % topical gel meclizine 1 mg PO DAILY 05/09/22 11/19/23 zolpidem 10 mg tablet 1 tab PO BEDTIME PRN Sleep 05/09/22 11/19/23 clonidine HCl 0.1 mg tablet 0.1 mg PO BEDTIME 05/21/23 11/19/23 Previous Rx's ?Medication ?Instructions ?Recorded cephalexin 500 mg capsule 500 mg PO BID #10 caps 12/06/23 cyclobenzaprine 10 mg tablet 10 mg PO TID PRN muscle spasm #14 12/06/23 tabs morphine 15 mg immediate release 15 mg PO Q6H PRN pain #12 tabs 12/06/23 tablet ketorolac 10 mg tablet 10 mg PO Q8H PRN pain #10 tabs 02/03/24 tramadol 50 mg tablet 50 mg PO BID PRN pain #4 tabs 02/03/24 Allergies Allergy/AdvReac Type Severity Reaction Status Date / Time No Known Allergies Allergy Unknown Verified 02/03/24 18:46 Review of Systems Review of Systems Constitutional : No Weight loss, No Fever, No Chills, No Night Sweats, No Fatigue, No Malaise ENT/Mouth : No Hearing loss, No Ear Pain, No Nasal Congestion, No Sinus Pain, No Hoarseness, No sore throat, No Rhinorrhea, No Swallowing Difficulty Eyes: No Eye Pain, No Swelling, No Redness, No Foreign Body, No Discharge, No Vision Changes Cardiovascular : No Chest Pain, No SOB, No Dyspnea on Exertion, No Orthopnea, No Edema, No Palpitations Respiratory : No Cough, No Sputum, No Wheezing, No Smoke Exposure, No Dyspnea Gastrointestinal : No Nausea, No Vomiting, No Diarrhea, No Constipation, No abdominal Pain, No Hematochezia, No Melena Genitourinary : no irregular bleeding, No Dysuria, No Urinary Frequency, No Hematuria, No Urinary Incontinence, No Urgency, complaining of right-sided Flank Pain radiating towards the right groin area, No Urinary Flow Changes, No Hesitancy Musculoskeletal : No joint pain, No Myalgias, No Joint Swelling Skin : No Skin Lesions, No rash Neuro : No Weakness, No Numbness, No Paresthesias, No Loss of Consciousness, No Dizziness, No Headache Psych : No Anxiety/Panic, No Depression, No SI/HI/AH/VH, No Social Issues, Heme/Lymph: No Bruising, No Bleeding,No Lymphadenopathy Endocrine : No Polyuria, No Polydipsia, No Temperature Intolerance [facility] Past Medical History Medical History Bipolar affective disorder Asthma Morbid obesity 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 Arthralgia GI bleed (~04/2019) Kidney stones Obstructive sleep apnea Pulmonary embolism (~1982) Tubular adenoma (~2005) Diverticulitis GERD (gastroesophageal reflux disease) Anxiety and depression Anxiety History of atypical hyperplasia of breast (~2008) Lobular carcinoma in situ (LCIS) of right breast (~11/2018) Surgical History H/O breast biopsy History of colonoscopy History of laparoscopic cholecystectomy Previous section Family History Family History Father Colon cancer Maternal Aunt Stomach cancer Paternal Aunt Colon cancer Mother Diabetes Heart disease Social History Social History Household Members: Family Housing: Apartment Are you a primary director medicare sales to a significant other at home: No Do you presently have visiting nurse or other home services: Yes (A - [facility]) Alcohol intake: never Patient Tobacco Use Status: Never used Tobacco Smoked in Last 30 Days: No Use of substances other than those prescribed or required for medical reasons: No Advance Directives: Yes Advance Directives on File: Yes Advance Directives Date on File: 09/12/21 Do you have a plan to hurt others: No Plan service: No Current occupational status: disabled Physical Exam ED Vital Signs: Vital Signs - 24 hr 02/03/24 18:43 02/03/24 20:08 Temperature 98.2 F 98.9 F Pulse Rate 56 57 Respiratory Rate 20 16 Blood Pressure 156/76 H 108/51 L Pulse Oximetry 98 97 Oxygen Delivery Method Room Air Room Air BMI result Body Mass Index 39.6 Const Other: Appearance: Alert. Oriented X3. No acute distress. Eyes: Pupils equal, round and reactive to light. ENT: Pharynx normal. Neck: Normal inspection. Neck supple. No lymph nodes noted. No crepitus CVS: Normal heart rate and rhythm. Pulses normal. Normal S1 and S2 Respiratory: No respiratory distress. Breath sounds normal. No Wheezing. No rales Abdomen: Soft and nontender. No rigidity. No distention. Positive CVA tenderness on the right Skin: Skin warm and dry. Normal skin color. Normal skin turgor. Extremities: No lower extremity edema. No Lacerations. No Rash Neuro: Oriented X 3. No motor deficit. No sensory deficit. Moving all extremities. No slurred speech. CN 2 through 12 grossly intact Psych: calm, cooperative, normal affect Course Course Course Narrative: This is a Rapid Medical Exam performed in triage by Mandie Loyola PA-C. Full HPI, ROS and PE to be performed by primary ED provider. 59 year-old F w/ PMHx renal stones presenting to the ED c/o right low back pain x this AM. Nonradiating. States pain feels similar to prior kidney stones. denies N/V, urinary sx PE: uncomfortable, abdomen soft nontender. Right CVAT noted Plan: Labs, UA, CT AP Medical Decision Making Medical Decision Making MDM Narrative: -my interpretation of labs, normal hematology and chemistry, urinalysis negative for UTI, has small amount of leukocyte esterase, no bacteria visible, no UTI symptoms, antibiotics not indicated at this time -my interpretation of CT scan, there is a 4-5 mm stone at the right UVJ -radiology report: No stone at the UVJ, it may be a lith. However patient has cystic mass above the uterus has enlarged from previous CT scans. -I discussed the above-mentioned with the patient. Patient will follow-up with her OBGYN -per patient's request, receiving IM medications, Toradol 60 mg. Patient denies nausea or vomiting. -tells with a IM Toradol, patient will be discharged with p.o. Toradol. Differential Diagnosis Differential Diagnoses: The differential diagnosis associated with the presentation includes (Ureterolithiasis, renal colic, musculoskeletal pain) Lab Data [facility] Lab Attestation statement: I reviewed the patient's lab results. 02/03/24 19:01 02/03/24 19:01 Labs: Lab Results 02/03/24 Range/Units 19:01 WBC 7.6 (4.8-10.8) X10*3/uL RBC 4.64 (4.20-5.50) X10*6/uL Hgb 12.9 (12.0-16.0) g/dl Hct 40.6 (37.0-47.0) % MCV 87.5 (80.0-98.0) fL MCH 27.8 (27.0-33.0) pg MCHC 31.8 (31.0-35.0) g/dl RDW 14.0 (11.0-16.0) % Plt Count 306 (160-400) X10*3/uL MPV 10.4 (9.4-12.3) fL Immature Gran % (Auto) 0.3 (0.0-0.4) % Neut % (Auto) 51.1 (45-73) % Lymph % (Auto) 34.4 (20-40) % Crowley % (Auto) 10.7 (2-11) % Eos % (Auto) 2.6 (0-4) % Baso % (Auto) 0.9 (0-2) % Lymph # (Auto) 2.6 (1.2-4.9) X10*3/uL Crowley # (Auto) 0.8 (0.1-1.2) X10*3/uL Eos # (Auto) 0.2 (0.0-0.4) X10*3/uL Baso # (Auto) 0.1 (0.0-0.2) X10*3/uL Abs Immat Gran (auto) 0.02 (0.00-0.03) X10*3/uL Absolute Neuts (auto) 3.9 (2.0-8.3) x10*3/uL Absolute Nucleated RBC 0.000 (0.0-0.012) X10*3/uL Nucleated RBC % (auto) 0.0 (0.0-0.2) /100WBC Sodium 141 (135-145) mmol/L Potassium 3.9 (3.3-5.1) mmol/L Chloride 107 (96-108) mmol/L Carbon Dioxide 25 (22-29) mmol/L Anion Gap 13 (12-20) BUN 8 L (9-16) mg/dL Creatinine 0.80 (0.5-1.4) mg/dL Estim Creat Clear Calc 90.2 Estimated GFR > 60 Random Glucose 85 (60-115) mg/dL Calcium 9.2 (8.4-10.2) mg/dL Magnesium 2.2 (1.6-2.6) mg/dL Total Bilirubin 0.3 (0.0-1.0) mg/dL Direct Bilirubin 0.1 (0.0-0.5) mg/dL AST 16 (5-31) U/L ALT 13 (0-31) U/L Alkaline Phosphatase 139 H (39-117) U/L Total Protein 7.5 (6.5-8.0) g/dL Albumin 4.2 (3.5-5.0) g/dL Lipase 25 (8-78) U/L Urine Color Dark Yellow Urine Appearance Clear Urine pH 5.5 (5.0-9.0) Ur Specific Selby >= 1.030 H (1.005-1.025) Urine Protein Trace (Neg-Trace) mg/dL Urine Glucose (UA) Negative (Negative) mg/dL Urine Ketones Trace (Negative) mg/dL Urine Blood Negative (Negative) Urine Nitrite Negative (Negative) Ur Leukocyte Esterase Trace H (Negative) Urine RBC 0-2 (0-2) /HPF Urine WBC 0-5 (0-5) /HPF Ur Squamous Epith Cells 3-5 (0-2) /HPF Urine Bacteria None Seen (None Seen) Hyaline Casts 0-2 (0-2) /LPF Independent Interpretation I performed an independent interpretation of an: CT Scan Radiology Impression Discussion of test interpretation with radiology: I have reviewed the radiologist's reading. Radiologist Impression: FINDINGS: LUNG BASES: The visualized lung bases are unremarkable. LIVER, GALLBLADDER, AND BILIARY TREE: The liver is normal in size, shape, and attenuation. No focal hepatic lesion or biliary ductal dilatation is present. Status post cholecystectomy PANCREAS: Unremarkable. SPLEEN: Unremarkable. ADRENAL GLANDS: Unremarkable. KIDNEYS AND URETERS: The kidneys are normal in size, shape, and attenuation. Again seen is a nonobstructing 2 mm right lower pole calculus. No hydronephrosis, hydroureter, or additional calculi seen. No perinephric stranding. BLADDER: Compressed by the uterus and the supra-uterine cystic mass. GASTROINTESTINAL TRACT: Tiny hiatal hernia is present. Sigmoid anastomosis is present. A large amount of stool is present in the rectum. There is no evidence of bowel obstruction. Diverticular changes are present throughout the colon without evidence of diverticulitis. The small and large bowel are otherwise unremarkable. The appendix is unremarkable. ABDOMINAL WALL: A ventral hernia containing only fat is again seen, unchanged from prior. LYMPH NODES: No retroperitoneal lymphadenopathy. VASCULAR: Unremarkable. PELVIC VISCERA: Large midline pelvic cyst measures 9.8 x 7.6 x 8.9 cm, continuing to increase in size since the prior study. An anteverted uterus is present compressed by the above-mentioned mass. OSSEOUS STRUCTURES: Degenerative changes again seen in the spine. CT/CT abdomen pelvis wo IV con IMPRESSION: 1. A cause for the patient's right flank pain has not been found. 2. Incidental note made of a nonobstructing 2 mm right lower pole renal calculus, sigmoid anastomosis, colonic diverticulosis without diverticulitis, ventral hernia containing only fat and a large pelvic cyst which is increased in size. Gynecology consultation is recommended. Medications Administered Discontinued Medications Generic Name Dose Route Start Last Admin Trade Name Freq PRN Reason Stop Dose Admin Ketorolac Tromethamine 60 mg 02/03/24 20:20 02/03/24 20:25 Ketorolac Tromethamine 60 Mg/2 Ml Vial IM 02/03/24 20:21 60 mg ONCE ONE Administration Critical Care Time Critical Care Time Critical Care Time: Yes Total Critical Care Time: 35 Attestation: I have personally provided critical care time. Time includes review of lab data, radiology results, discussion with consultants, and monitoring for potential decompensation. Intervention performed as documented. Discharge Plan Discharge Clinical Impression: Acute flank pain Patient Disposition: Home, Self-Care Instructions: Flank Pain (ED) Additional Instructions: Please follow-up with your primary care physician tomorrow. Also, please follow-up with your primary care physician to discuss the pelvic cystic mass that was seen on your CT scan. If you have any worsening or new symptoms, please return to the emergency room or call 911 Prescriptions: New ketorolac 10 mg tablet 10 mg PO Q8H PRN (Reason: pain) Qty: 10 0RF Rx Instructions: maximum total duration of 5 days from all oral, intranasal, or parenteral formulations tramadol 50 mg tablet 50 mg PO BID PRN (Reason: pain) Qty: 4 0RF Rx Instructions: Urine severe pain, only if Toradol does not work No Action atorvastatin 10 mg Tablet 10 mg PO BEDTIME ferrous sulfate [iron] 325 mg (65 mg iron) Tablet 325 mg PO BID omeprazole 20 mg Capsule,Delayed Release(Dr/Ec) 20 mg PO DAILY melatonin 5 mg Tablet 5 mg PO BEDTIME lurasidone [Latuda] 80 mg Tablet 80 mg PO BEDTIME Trintellix 20 mg Tablet 20 mg PO DAILY cyanocobalamin (vitamin B-12) [Vitamin B-12] 1,000 mcg/mL Solution 1,000 mcg SUBCUT QMONTH clonidine HCl 0.1 mg Tablet 0.1 mg PO BEDTIME fluticasone propionate [Flovent HFA] 220 mcg/actuation HFA aerosol inhaler 1 puff PO BID famotidine 40 mg tablet 1 tab PO BEDTIME clonazepam 1 mg tablet 1 tab PO TID PRN (Reason: Anxiety) clindamycin-benzoyl peroxide 1-5 % Gel 1 appl TOPICAL BID zolpidem 10 mg tablet 1 tab PO BEDTIME PRN (Reason: Sleep) meclizine 1 mg PO DAILY cephalexin 500 mg capsule 500 mg PO BID Qty: 10 0RF cyclobenzaprine 10 mg tablet 10 mg PO TID PRN (Reason: muscle spasm) Qty: 14 0RF morphine 15 mg tablet 15 mg PO Q6H PRN (Reason: pain) Qty: 12 0RF Rx Instructions: Partial Fill upon patient request. Print Language: Spanish
[2024-02-03 19:07] LABS: MANUAL DIFF FLAG NO
[2024-02-03 19:10] LABS: Appearance Urine Clear; Basophils Absolute Auto 0.1 X10*3/uL (0.0-0.2); Basophils Percent Auto 0.9 % (0-2); Color Urine Dark Yellow; Eosinophils Absolute Auto 0.2 X10*3/uL (0.0-0.4); Eosinophils Percent Auto 2.6 % (0-4); Glucose Urine UA Negative (Negative); Hematocrit 40.6 % (37.0-47.0); Hemoglobin 12.9 g/dl (12.0-16.0); Imm Gran Abs Auto 0.02 X10*3/uL (0.00-0.03); Imm Gran Pct Auto 0.3 % (0.0-0.4); Leukocyte Esterase Urine Trace (Negative); Lymphocytes Absolute Auto 2.6 X10*3/uL (1.2-4.9); Lymphocytes Percent Auto 34.4 % (20-40); Mean Corpuscular HGB Conc 31.8 g/dl (31.0-35.0); Mean Corpuscular Hemoglobin 27.8 pg (27.0-33.0); Mean Corpuscular Volume 87.5 fL (80.0-98.0); Mean Platelet Volume 10.4 fL (9.4-12.3); Monocytes Absolute Auto 0.8 X10*3/uL (0.1-1.2); Monocytes Percent Auto 10.7 % (2-11); Neutrophils Absolute Auto 3.9 x10*3/uL (2.0-8.3); Neutrophils Percent Auto 51.1 % (45-73); Nitrite Urine Negative (Negative); PH 5.5 (5.0-9.0); Platelet Count 306 X10*3/uL (160-400); Red Blood Count 4.64 X10*6/uL (4.20-5.50); Specific Gravity - Urine >= 1.030 (1.005-1.025); UMIC TRIGGER UACC YES; Urine Blood Negative (Negative); Urine Ketones Trace mg/dL (Negative); Urine Protein Trace mg/dL (Neg-Trace); White Blood Count 7.6 X10*3/uL (4.8-10.8)
[2024-02-03 19:22] LABS: Alanine Aminotransferase 13 U/L (0-31); Albumin Level 4.2 g/dL (3.5-5.0); Alkaline Phosphatase 139 U/L (39-117); Anion Gap 13 (12-20); Aspartate Amino Transferase 16 U/L (5-31); Bilirubin Direct 0.1 mg/dL (0.0-0.5); Bilirubin Total 0.3 mg/dL (0.0-1.0); Blood Urea Nitrogen 8 mg/dL (9-16); Calcium 9.2 mg/dL (8.4-10.2); Carbon Dioxide 25 mmol/L (22-29); Chloride 107 mmol/L (96-108); Creatinine Clr Calc Pharmacy 90.2; Estimated Glomerular Filt Rate > 60; Glucose Random 85 mg/dL (60-115); Lipase 25 U/L (8-78); Magnesium 2.2 mg/dL (1.6-2.6); Potassium 3.9 mmol/L (3.3-5.1); Sodium 141 mmol/L (135-145); Total Protein 7.5 g/dL (6.5-8.0)
[2024-02-03 19:56] LABS: Bacteria Urine None Seen (None Seen); Hyaline Casts Urine 0-2 /LPF (0-2); RBC Urine 0-2 /HPF (0-2); WBC Urine 0-5 /HPF (0-5)
[2024-02-03 20:08] VITALS: BP 108/51; PULSE 57; RESP 16; TEMP 37.2; O2SAT 97
[2024-02-03] MEDS: Ketorolac Tromethamine 60 MG/2 ML VIAL IM (20:25)
[2024-02-03 21:31] VITALS: BP 141/63; PULSE 50; RESP 16; TEMP 36.8; O2SAT 99
== END 2024-02-03 21:33 | disposition home or self-care (01) ==
PROVIDERS: Physician Assistant; Emergency Provider Emergency Medicine; PCP Internal Medicine Geriatric Medicine
DX: R10.9 Unspecified abdominal pain (principal)
CPT/HCPCS: 36415; 74176; 80048; 80076; 81001; 83690; 83735; 85025; 96372; 99284; J1885

== ENCOUNTER 2024-09-13 15:59 | Outpatient (REF) | payer MEDICAID, SELFPAY ==
--- OUTSIDE RECORDS SUMMARY | 2024-09-13 18:41 | XMS_ITS ---
Author Organization [facility] Address [address] [place] [address] Care Team Providers Care Trip Rider Name Role Phone Name Mariano GO Primary Care Provider Reece Suazo [phone] REASON FOR VISIT r/f request on ferrous sulfate MEDICATIONS Medication SIG (Take, Route, Frequency, Duration) Notes Start Date End Date Status Ferrous Sulfate 325 (65 Fe) MG 1 tablet Orally Twice a day for 30 day(s) 01/05/2023 Active Encounters Encounter Location Date Provider Diagnosis [facility] [address] [place] [id number] 01/07/2024 Reece Glez PLAN OF TREATMENT Medication Medication Name Sig Start Date Stop Date Notes Ferrous Sulfate 325 (65 Fe) MG 1 tablet Orally Twice a day for 30 day(s) 01/05/2023
--- OUTSIDE RECORDS SUMMARY | 2024-09-13 18:42 | XMS_ITS | Encounter Summary ---
Author Organization [employer] Address [address] [place] [address] Care Team Providers Care Catalogue Clerk Name Role Phone Name, Mariano GO Primary Care Provider Encounter Details Date Type Department Care Team (Late st Contact Info) Description 09/12/2024 Orders Only [facility] [address] [place], [place] [id number] Provider, MD Kasey Social History Tobacco Use Types Packs/Day Years Used Date Smoking Tobacco: Never Smokeless Tobacco: Never Alcohol Use Standard Drinks/Week Comments Never 0 (1 standard drink = 0.6 oz pur e alcohol) Depression Answer Date Recorded Patient Health Questionnaire-9 Score 8 07/29/2023 Patient Health Questionnaire-9 Score 8 07/29/2023 Last PHQ-9: Questionnaire Data Not on file 0 07/29/2023 Housing Stability Answer Date Recorded What is your housing situation today? I have lala nelson 07/29/[address] you li ve. Do you have problems with any of the following? None of the above 07/29/2023 Food Insecurity Answer Date Recorded Within the past 12 months, y ou worried that your food would run out before you got money to buy more: Never True 07/29/2023 Within the past 12 months,th e food you bought just didn't last and you didn't have enough money to get more: Never True Transportation Answer Date Recorded In the past 12 months, has l ack of transportation kept you from medical appts, meetings, work or from getting things needed for daily living? I am not sure 07/29/2023 Utilities Answer Date Recorded In the past 12 months, has t he electric, gas, oil or water company threatened to shut off services in your home? I am not sure 07/29/2023 Depression Answer Date Recorded Patient Health Questionnaire-2 Score 4 07/29/2023 Comments Unknown Sex and Gender Information Value Date Recorded Sex Assigned at Female 05/13/2022 10:14 AM EDT Legal Sex Female 10:14 AM EDT Gender Identity Female 05/13/2022 10:14 AM EDT Sexual Orientation Straight 05/13/2022 10 :14 AM EDT documented as of this encounter Plan of Treatment Upcoming Encounters Date Type Department Care Team (Late st Contact Info) Description 12/29/2024 3:30 PM EDT Office Visit [facility] MEDICINE [address] [place] [address] Name, MD Mariano [address] [place] [id number] documented as of this encounter Procedures Procedure Name Priority Date/Time Associated Diagnosis Comments HM COLONOSCOPY Routine 05/10/2022 6:52 PM EDT documented in this encounter Results * Hm Colonoscopy (05/10/2022 6:52 PM EDT) us Historical Provider HEALTH MAINTENANCE Final Result documented in this encounter Visit Diagnoses Not on filedocumented in this encounter Additional Health Concerns Assessment Noted Time PHQ-9 Depression Total Score: 8 07/29/19 24 4:18 PM EST documented as of this encounter Care Teams Catalogue Clerk Relationship Specialty Start Date End Date Name, MD Mariano [address] [place] [phone] PCP - General Family Medicine 02/27/17 Liliana Flowers Cut File ClerkCotton Machine Operator 08/16/24 documented as of this encounter
--- OUTSIDE RECORDS SUMMARY | 2024-09-13 18:42 | XMS_ITS | Encounter Summary ---
Author Organization [employer] Address [address] [facility] [address] [place] [address] Care Team Providers Care Director Of Restaurant Name Role Phone Name, Mariano GO Primary Care Provider [phone] Reason for Visit * Reason Comments Care Coordination ICP Care Plan Encounter Details Date Type Department Care Team ([facility] st Contact Info) Description 08/16/2024 Telephone [facility] MED [facility] PEDS [address] [place], [place] [phone] Name, MD Mariano [address] [place] [address] Care Coordination (ICP Care Plan ) Social History Tobacco Use Types Packs/Day Years [...] AM EDT documented as of this encounter Progress Notes * Reyna Cloud - 08/16/2024 11:59 AM EST PCP Designee has received and reviewed Care Plan from [facility] Partners: Dermatologist Managing Partner: Liliana Flowers Contact Information: Care Plan scanned into patient's EHR and notification sent to PCP. documented in this encounter Plan of Treatment Upcoming Encounters Date Type Department Care Team (Late st Contact Info) Description 12/29/2024 3:30 PM EDT Office Visit [facility] MEDICINE [address] [place] [id number] Name, MD Mariano [address] [place] [address] documented as of this encounter Visit Diagnoses Not on filedocumented in this encounter Additional Health Concerns Assessment Noted Time PHQ-9 Depression Total Score: 8 07/29/19 24 4:18 PM EST documented as of this encounter Care Teams Director Of Restaurant Relationship Specialty Start Date End Date Name, MD Mariano [address] [place] [phone] PCP - General Family Medicine 02/27/17 Liliana Flowers Core Java EngineerRelay Dispatcher 08/16/24 documented as of this encounter
--- OUTSIDE RECORDS SUMMARY | 2024-09-13 18:42 | XMS_ITS ---
Author Organization [facility] Address [address] [place] [address] Care Team Providers Care Shearer Operator Name Role Phone Name Mariano GO Primary Care Provider Reece Suazo Unavailable [phone] REASON FOR VISIT Patient presents today for fe def anemia MEDICATIONS Medication SIG (Take, Route, Frequency, Duration) Notes Start Date End Date Status Lurasidone HCl 60 MG TAKE 1 TABLET BY MOUTH EVERY EVENING Oral for 30 Not-Taking Advair HFA 230-21 MCG/ACT INHALE 2 PUFFS BY MOUTH TWICE DAILY IN THE MORNING AND AT BEDTIME RINSE MOUTH AFTER USING. Inhalation for 30 J4520,Unavail able Active FeroSul 325 (65 Fe) MG TAKE 1 TABLET BY MOUTH TWICE DAILY IN THE MORNING AND IN THE EVENING Oral for 90 Active Zolpidem Tartrate 10 MG TAKE 1 TABLET BY MOUTH AT BEDTIME NEEDED Oral for 30 Active Famotidine 40 MG TAKE 1 TABLET BY MOUTH AT BEDTIME Oral for 90 K219,Unavaila ble Active MiraLax (colon prep) 17 GM/SCOOP 1 238Gm bottle mixed with Gatorade or Crystal Light Orally begin at 5:00 p.m. the day before the procedure for 1 day 05/06/2022 Active Dulcolax (colon prep) 5 MG take at 3:00 p.m and 7:00p.m. Orally two tablets twice a day for one day for 1 day 05/06/2022 Active Ferrous Sulfate 325 (65 Fe) MG 1 tablet Orally Twice a day for 30 day(s) 01/05/2023 Active Vitamin B-12 500 mcg TAKE 1 TABLET BY MOUTH EVERY DAY for 30 Active Dulcolax (colon prep) 5 MG take at 3:00 p.m and 7:00p.m. Orally two tablets twice a day for one day for 1 day 05/03/2022 Active Clindamycin Phos-Benzoyl Perox 1-5 % 1 application to affected area Externally Twice a day Active Meclizine HCl 25 MG 1 tablet as needed Orally Once a day Active Flovent HFA 220 MCG/ACT 1 puff Inhalation Twice a day Active Melatonin Active MiraLax (colon prep) 17 GM/SCOOP 1 238 Gm botttle mixed with Gatorade or Crystal Light Orally begin at 5:00 p.m. the day before the procedure for 1 day 05/03/2022 Active Iron 325 (65 Fe) MG 1 tablet Orally Once a day Active clonazePAM 1 MG 1 tablet Orally Twice a day Active Latuda 80 MG TAKE 1 TABLET BY MOUTH EVERY EVENING Oral for 30 Not-Taking Atorvastatin Calcium 10 MG TAKE 1 TABLET BY MOUTH AT BEDTIME Oral for 30 Active Trintellix 20 MG TAKE 1 TABLET BY MOUTH EVERY MORNING Oral for 30 Active Aspirin 81 MG 1 tablet Orally Once a day Not-Taking Letrozole 2.5 MG TAKE 1 TABLET EVERY MORNING Oral for 30 Active Omeprazole 20 MG TAKE 1 CAPSULE BY MOUTH EVERY MORNING (BEFORE MEALS) Oral for 30 Active VITAL SIGNS Temperature 98.9 degrees Fahrenheit 06/11/20 23 Blood pressure systolic 000 mm Hg 06/11/20 23 Blood pressure diastolic 00 mm Hg 023 Height 63.75 in 06/11/2023 Weight 244 lb 6 oz lbs 06/11/2023 BMI 42.27 kg/m2 06/11/2023 Encounters Encounter Location Date Provider Diagnosis [facility] [address] [facility] [address] [place] [address] 06/11/2023 Reece Glez Constipation, unspecified constipation type K59.00 ; Iron deficiency anemia, unspecified iron deficiency anemia type D50.9 ; Hx of adenomatous colonic polyps Z86.010 and Vitamin B 12 deficiency E53.8 ASSESSMENTS Encounter Date Diagnosis Assessment Notes Treatment Notes Treatment Clinical Notes 06/11/2023 Constipation, unspecified constipation type (ICD-10 - K59.00) Continue the Miralax 06/11/2023 Iron deficiency anemia, unspecified iron deficiency anemia type (ICD-10 - D50.9) Continue the iron pills 06/11/2023 Hx of adenomatous colonic polyps (ICD-10 - Z86.010) Repeat colonoscopy in 202406/11/2023 Vitamin B 12 deficiency (ICD-10 - E53.8) Continue the B12 pills PLAN OF TREATMENT Treatment Notes Assessment Notes Constipation, unspecified constipation t ype Continue the Miralax Iron deficiency anemia, unsp ecified iron deficiency anemia type Continue the iron pills Hx of adenomatous colonic polyps Repeat colonoscopy in 2024 Vitamin B 12 deficiency Continue the B12 pills Pending Test Test Name Order Date Vitamin B12 06/11/2023 Next Appt Details Follow Up: prn, Reason: Progress Notes * Examination Category Sub-Category Detail Notes General Examination GENERAL APPEARANCE: pleasant , well nourished, well developed, in no acute distress HEAD: EYES: sclera non-icteric EARS: NOSE: THROAT: NECK/THYROID: no cervical lymphade nopathy, neck supple HEART: S1, S2 normal CHEST: LUNGS: clear to auscultatio n bilaterally ABDOMEN: normal bowel sounds, no guarding or rigidity, no guarding or rigidity, no masses palpable, soft, nontender, nondistended NEUROLOGIC: alert and oriented SKIN: nonjaundiced, no spi urvashi angiomata EXTREMITIES: no edema PERIPHERAL PULSES: BACK: BREASTS: MUSCULOSKELETAL: MALE GENITOURINARY: LYMPH NODES: RECTAL EXAM: FEMALE GENITOURINARY: ORAL CAVITY: mucosa moist
--- OUTSIDE RECORDS SUMMARY | 2024-09-13 18:42 | XMS_ITS | Encounter Summary ---
Author Organization [facility] Address [address] [facility] 7t [place] [address] Care Team Providers Care Optical Manager Name Role Phone Name, Mariano GO Primary Care Provider [phone] Reason for Visit * Reason Comments Med Refill Encounter Details Date Type Department Care Team ([facility] st Contact Info) Description 08/19/2024 Refill [facility] MEDICINE [address] [place], [place] [phone] Palak Bragg, ZANDRA [address] [place] [address] Diseases of lips Social History Tobacco Use Types Packs/Day Years [...] Description 12/29/2024 3:30 PM EDT Office Visit [facility] MEDICINE [address] [place] [phone] Name, MD Mariano [address] [place] [address] documented as of this encounter Visit Diagnoses Diagnosis Diseases of lips documented in this encounter Additional Health Concerns Assessment Noted Time PHQ-9 Depression Total Score: 8 07/29/19 24 4:18 PM EST documented as of this encounter Care Teams Optical Manager Relationship Specialty Start Date End Date NameMariano MD [address] [place] [address] PCP - General Family Medicine 02/27/17 Liliana Flowers Pattern FitterPost Manager 08/16/24 documented as of this encounter
--- OUTSIDE RECORDS SUMMARY | 2024-09-13 18:42 | XMS_ITS | Encounter Summary ---
Author Organization [employer] Address [address] [facility] 7t [place] [address] Care Team Providers Care Ripsaw Operator Name Role Phone Name, Mariano GO Primary Care Provider [phone] Reason for Visit * Reason Onset Date Comments chartprep 09/09/2024 Encounter Details Date Type Department Care Team (Late st Contact Info) Description 09/09/[address] [facility] [address] [place], [place] [phone] Name, MD Mariano [address] [place] [address] chartprep Social History Tobacco Use Types Packs/Day Years [...] AM EDT documented as of this encounter Miscellaneous Notes * Telephone Encounter - Tierney Johnson [place] - 09/09/2024 9:20 AM EST Chart Prep Labs: not applicable Images: not applicable Vaccines due: yes Rsv and zoster. Referrals: n/a Screenings: colonoscopy , pap smear , HIV Overdue care gaps: SDOH, PHQ-9, TRINI-7 documented in this encounter Plan of Treatment Upcoming Encounters Date Type Department Care Team (Late st Contact Info) Description 12/29/2024 3:30 PM EDT Office Visit [facility] MEDICINE [address] [place] [address] Name, MD Mariano [address] [place] [address] documented as of this encounter Visit Diagnoses Not on filedocumented in this encounter Additional Health Concerns Assessment Noted Time PHQ-9 Depression Total Score: 8 07/29/19 24 4:18 PM EST documented as of this encounter Care Teams Ripsaw Operator Relationship Specialty Start Date End Date Name, MD Mariano [address] [place] [address] PCP - General Family Medicine 02/27/17 Liliana Flowers Organic Preparation AnalystMultimedia Project Manager 08/16/24 documented as of this encounter
--- OUTSIDE RECORDS SUMMARY | 2024-09-13 18:42 | XMS_ITS | Encounter Summary ---
Author Organization [employer] Address [address] [facility] 7t [place] [address] Care Team Providers Care Coal Drier Operator Name Role Phone Name, Mariano GO Primary Care Provider Reason for Visit * Reason Comments Med Refill Encounter Details Date Type Department Care Team ([facility] st Contact Info) Description 08/23/2024 Refill [facility] MEDICINE [address] [place], [place] [phone] Name, MD Mariano [address] [place] [address] Social History Tobacco Use Types Packs/Day Years [...] Description 12/29/2024 3:30 PM EDT Office Visit [facility] MEDICINE [address] [place] [address] Name, MD Mariano [address] [place] [address] documented as of this encounter Visit Diagnoses Not on filedocumented in this encounter Additional Health Concerns Assessment Noted Time PHQ-9 Depression Total Score: 8 07/29/19 24 4:18 PM EST documented as of this encounter Care Teams Coal Drier Operator Relationship Specialty Start Date End Date NameMariano MD [address] [place] [address] PCP - General Family Medicine 02/27/17 Liliana Flowers Aerosol Line OperatorDirector Institution 08/16/24 documented as of this encounter
--- OUTSIDE RECORDS SUMMARY | 2024-09-13 18:42 | XMS_ITS | Encounter Summary ---
Author Organization [employer] [facility] Address [address] [facility] 7t [place] [address] Care Team Providers Care Blood Bank Assistant Name Role Phone Name, Mariano GO Primary Care Provider [phone] Encounter Details Date Type Department Care Team (Latest Contact Info) Description 03/27/2021 Abstract [facility] CONVERSIONS Dental, Provider, DDS Social History Tobacco Use Types Packs/Day Years Used Date Smoking Tobacco: Never Assessed Comments Unknown Sex and Gender Information Value Date Recorded Sex Assigned at Female 05/13/2022 10:14 AM EDT Legal Sex Female 10:14 AM EDT Gender Identity Female 05/13/2022 10:14 AM EDT Sexual Orientation Straight 05/13/2022 10 :14 AM EDT documented as of this encounter Plan of Treatment Upcoming Encounters Date Type Department Care Team ( st Contact Info) Description 12/29/2024 3:30 PM EDT Office Visit [facility] MEDICINE [address] [place] [address] Name, MD Mariano [address] [place] [address] documented as of this encounter Visit Diagnoses Not on filedocumented in this encounter Care Teams Blood Bank Assistant Relationship Specialty Start Date End Date NameMariano MD [address] [place] [address] PCP - General Family Medicine 02/27/17 Che Grissom Project Engineering ManagerSpooling Operator 03/27/23 08/15/24 Liliana Flowers Hospice Office CoordinatorSpooling Operator 08/16/24 documented as of this encounter
--- OUTSIDE RECORDS SUMMARY | 2024-09-13 18:42 | XMS_ITS | Encounter Summary ---
Author Organization [employer] [facility] Address [address] [facility] 7t [place] [address] Care Team Providers Care Wire Photo Operator News Name Role Phone Name, Mariano GO Primary Care Provider [phone] Encounter Details Date Type Department Care Team (Late Contact Info) Description 12/25/2022 Abstract [facility] MEDICINE [address] [place] [address] Name, MD Mariano [address] [place] [address] Social History Tobacco Use Types Packs/Day Years Used Date Smoking Tobacco: Never Smokeless Tobacco: Never Depression Answer Date Recorded Patient Health Questionnaire-9 Score 0 07/01/2022 Depression Answer Date Recorded Patient Health Questionnaire-2 Score 0 07/01/2022 Comments Unknown Sex and Gender Information Value Date Recorded Sex Assigned at Female 05/13/2022 10:14 AM EDT Legal Sex Female 10:14 AM EDT Gender Identity Female 05/13/2022 10:14 AM EDT Sexual Orientation Straight 05/13/2022 10 :14 AM EDT COVID-19 Exposure Response Date Recorded In the last 10 days, have yo u been in contact with someone who was confirmed or suspected to have Coronavirus/COVID-19? No / Unsure 12/24/2022 3:38 PM EDT documented as of this encounter Plan of Treatment Upcoming Encounters Date Type Department Care Team (Late Contact Info) Description 12/29/2024 3:30 PM EDT Office Visit [facility] MEDICINE [address] [place] [address] Name, MD Mariano [address] [place] [phone] documented as of this encounter Visit Diagnoses Not on filedocumented in this encounter Additional Health Concerns Assessment Noted Time PHQ-9 Depression Total Score: 0 07/01/20 22 1:35 PM EST documented as of this encounter Care Teams Wire Photo Operator News Relationship Specialty Start Date End Date Name, MD Mariano [address] [place] [address] PCP - General Family Medicine 02/27/17 Che Grissom Pastoral AssistantMail Processor 03/27/23 08/15/24 Liliana Flwoers Director Of ProcurementMail Processor 08/16/24 documented as of this encounter
--- OUTSIDE RECORDS SUMMARY | 2024-09-13 18:42 | XMS_ITS | Encounter Summary ---
Author Organization [employer] Address [address] [facility] 7t [place] [address] Care Team Providers Care Office Machine Inspector Name Role Phone Name, Mariano GO Primary Care Provider [phone] Reason for Visit * Reason Onset Date Comments ER Follow-up 02/04/2024 Referral 02/04/2024 Encounter Details Date Type Department Care Team ([facility] st Contact Info) Description 02/04/2024 Telephone [facility] MEDICINE [address] [place] [address] Name, MD Mariano [address] [place] [address] ER Follow-up; Referral Social History Tobacco Use Types Packs/Day Years [...] encounter Miscellaneous Notes * Telephone Encounter - Evangelina Cassidy RN - 02/04/2024 10:41 AM EDT T/C to pt. For below message, pt. Had ED visit at [facility] for pelvic cystic mass and back pain, pt. States she is doing well and she already called to OBGYN but also wants to see provider at [facility]. Pt. Advised that ED states to follow up with OBGYN but pt. States again she also wants to see provider for ED follow up at [facility] to discuss pelvic cystic mass. Pt. Schedule for Sick apt. On 02/09/2024. Pt. Also advised to go to nearest ED in case of any new or worsening symptoms. [facility] hours are reviewed. Pt. Verbally agreed and understood. * Telephone Encounter - Stanislav Goff - 02/04/2024 9:21 AM EDT Patient calling to report ED visit on : Date: 02/02 Hospital: [facility] Seen for: Lower back pain and was told to get a referral for a INSPECTOR OF WEIGHTS AND MEASURES states has a CIS on ovaries as well as uterus Patient advised will forward to team nurse for follow up documented in this encounter Plan of Treatment Upcoming Encounters Date Type Department Care Team (Late st Contact Info) Description 12/29/2024 3:30 PM EDT Office Visit [facility] MEDICINE [address] [place] [address] Name, [place] [address] documented as of this encounter Visit Diagnoses Not on filedocumented in this encounter Additional Health Concerns Assessment Noted Time PHQ-9 Depression Total Score: 8 07/29/19 24 4:18 PM EST documented as of this encounter Care Teams Office Machine Inspector Relationship Specialty Start Date End Date Name, [place] [address] PCP - General Family Medicine 02/27/17 Che Grissom Collar TrimmerChief Technologist 03/27/23 08/15/24 Liliana Flowers Fios Line InstallerChief Technologist 08/16/24 documented as of this encounter
--- OUTSIDE RECORDS SUMMARY | 2024-09-13 18:42 | XMS_ITS ---
Author Organization [facility] Address [address] [place] [address] Care Team Providers Care Radio Message Router Name Role Phone Name Mariano GO Primary Care Provider Reece Suazo [phone] MEDICATIONS Medication SIG (Take, Route, Fr equency, Duration) Notes Start Date End Date Status FeroSul 325 (65 Fe) MG TAKE 1 TABLET BY MOUTH TWICE DAILY IN THE MORNING AND IN THE EVENING Oral Twice a day for 90 days Active Encounters Encounter Location Date Provider Diagnosis [facility] [address] [place] [address] 01/13/2024 Reece Glez PLAN OF TREATMENT Medication Medication Name Sig Start Date Stop Date Notes FeroSul 325 (65 Fe) MG TAKE 1 TABLET BY MOUTH TWICE DAILY IN THE MORNING AND IN THE EVENING Oral Twice a day for 90 days
--- OUTSIDE RECORDS SUMMARY | 2024-09-13 18:42 | XMS_ITS | Patient Health Record ---
Author Organization [facility] Address [address] [place] [address] Care Team Providers Care Cmv Driver Name Role Phone Name Mariano GO Primary Care Provider Reece Suazo [phone] ALLERGIES No Known Allergies REASON FOR REFERRAL No Information MEDICATIONS Medication SIG (Take, Route, Frequency, Duration) Notes Start Date End Date Status Iron 325 (65 Fe) MG 1 tablet Orally Once a day Active clonazePAM 1 MG 1 tablet Orally Twice a day Active Clindamycin Phos-Benzoyl Perox 1-5 % 1 application to affected area Externally Twice a day Active Meclizine HCl 25 MG 1 tablet as needed Orally Once a day Active Latuda 80 MG TAKE 1 TABLET BY MOUTH EVERY EVENING Oral for 30 Not-Taking Atorvastatin Calcium 10 MG TAKE 1 TABLET BY MOUTH AT BEDTIME Oral for 30 Active Trintellix 20 MG TAKE 1 TABLET BY MOUTH EVERY MORNING Oral for 30 Active MiraLax (colon prep) 17 GM/SCOOP 1 238Gm bottle mixed with Gatorade or Crystal Light Orally begin at 5:00 p.m. the day before the procedure for 1 day 05/06/2022 Active Dulcolax (colon prep) 5 MG take at 3:00 p.m and 7:00p.m. Orally two tablets twice a day for one day for 1 day 05/06/2022 Active Vitamin B-12 500 mcg TAKE 1 TABLET BY MOUTH EVERY DAY for 30 Active Flovent HFA 220 MCG/ACT 1 puff Inhalation Twice a day Active Melatonin Active FeroSul 325 (65 Fe) MG TAKE 1 TABLET BY MOUTH TWICE DAILY IN THE MORNING AND IN THE EVENING Oral Twice a day for 90 days Active Letrozole 2.5 MG TAKE 1 TABLET EVERY MORNING Oral for 30 Active MiraLax (colon prep) 17 GM/SCOOP 1 238 Gm botttle mixed with Gatorade or Crystal Light Orally begin at 5:00 p.m. the day before the procedure for 1 day 05/03/2022 Active Omeprazole 20 MG TAKE 1 CAPSULE BY MOUTH EVERY MORNING (BEFORE MEALS) Oral for 30 Active Dulcolax (colon prep) 5 MG take at 3:00 p.m and 7:00p.m. Orally two tablets twice a day for one day for 1 day 05/03/2022 Active Lurasidone HCl 60 MG TAKE 1 TABLET BY MOUTH EVERY EVENING Oral for 30 Not-Taking Aspirin 81 MG 1 tablet Orally Once a day Not-Taking Advair HFA 230-21 MCG/ACT INHALE 2 PUFFS BY MOUTH TWICE DAILY IN THE MORNING AND AT BEDTIME RINSE MOUTH AFTER USING. Inhalation for 30 J4520,Unavail able Active Zolpidem Tartrate 10 MG TAKE 1 TABLET BY MOUTH AT BEDTIME NEEDED Oral for 30 Active Famotidine 40 MG TAKE 1 TABLET BY MOUTH AT BEDTIME Oral for 90 K219,Unavaila ble Active Ferrous Sulfate 325 (65 Fe) MG 1 tablet Orally Twice a day for 30 day(s) 01/05/2023 Active IMMUNIZATIONS Vaccine Route Administration Date Status Comme nts Influenza Unknown 04/13/2019 Administered Influenza Unknown 06/05/2021 Administered Influenza Unknown 05/14/2023 Administered Influenza Unknown 05/17/2020 Refused SOCIAL HISTORY Sex Assigned At : Social History Observation Description Sex Assigned At Unknown PROBLEMS Problem Type ICD Code Onset Dates Problem Status W/U Status Risk SNOMED Code Notes Problem Colon cancer screening (Z12.11) Active confirmed Colon cancer screening (135035579) Problem Iron deficiency anemia (D50.9) Active confirmed Iron deficien cy anemia (85842766) Problem Gastric polyp (K31.7) Active confirmed Gastric polyp (41083691) Problem Anemia (D64.9) Active confirmed Anemia (774951634) Problem Lower GI bleed (K92.2) Active confirmed 26656427 Problem Constipation, unspecified constipation type (K59.00) Active confirmed 55471650 Problem Gastritis (K29.70) Active confirmed Gastritis (3285823) Problem Vitamin B 12 deficiency (E53.8) Active confirmed Vitamin B12 deficiency (non anemic) (37625553) Problem Iron deficiency anemia, unspecified iron deficiency anemia type (D50.9) Active confirmed 13871490 Problem Hx of adenomatous colonic polyps (Z86.010) Active confirmed 181365341 Problem Diverticulosis of colon with hemorrhage (K57.31) Active confirmed 528419681 Problem Diverticulosis of colon (K57.30) Active confirmed Diverticulosi s of colon (085267524) Problem Anemia due to acute blood loss (D62) Active confirmed 598841340 Encounters Encounter Location Date Provider Diagnosis [facility] [address] [place] [address] 01/07/2024 Reece Glez [facility] [address] [place] [address] 01/13/2024 Reece Glez PLAN OF TREATMENT Pending Test Test Name Order Date IRON + IBC (FE) 05/20/2019 IRON + IBC (FE) 03/20/2022 FERRITIN 05/20/2019 VITAMIN B12 AND FOLATE 03/20/2022 CBC w DIFF 03/20/2022 CBC w DIFF 05/20/2019 CELIAC PANEL #10 03/20/2022 Vitamin B12 06/11/2023 Intrinsic Factor Antibodies 03/20/2022 Parietal Cell Antibody 03/20/2022 Future Test Test Name Order Date COLONOSCOPY 03/10/2015 COLONOSCOPY 05/20/2019 COLONOSCOPY 03/20/2022 UPPER GI ENDOSCOPY 03/30/2022 Insurance Providers Payer Name Payer Address Payer Phone Subscriber Number Group Number Insured Name Patient Relationship to Insured Coverage Start Date Coverage End Date [place] [address] [place] [phone] [id number] MARBIN KAUFFMAN Self - patient is the insured MEDICAL (GENERAL) HISTORY Medical History History ICD Code Colonoscopy 04-28-2006--tubu lar adenomas removed--neg. F/U colonoscopy in 08/2011--she also had a colonoscopy in 2000 with removal of only hyperplastic polyps Asthma GERD-EGD in 08/2011-HH, no esophagitis/Ba rrett's Anxiety Depression/Bipolar disease Kidney stones She denies diabetes, [place], stroke, nor kid brian disease Sleep apnea, although she does not have a CPAP machine Negative followup screening colonoscopy in 2013 other than her known diverticulosis Hospitalization in April 14 for lower GI bleeding in relation to diverticulosis--her colonoscopy at that time revealed a diffuse diverticulosis, as well as an adenomatous area on the superior portion of the ileocecal valve that was biopsied, but not completely removed. Colonoscopy 04/20/2020 with Kunal Church at [facility]-removal of ICV lesion-pathology showed adenomatous tissue but without dysplasia nor carcinoma; scheduled for F/U colonoscpy 08/03/[address] Church at [facility]. Colonoscopy in 07/2020 with Kunal Church did not show any sign of residual polyp tissue endoscopically nor by biopsies at the ileocecal valve Diverticular bleed 08/2021 at [facility]-received 1 u PRBC--- she had a positive bleeding scan in the left colon consistent with the diverticular bleed Left breast cancer 2018-Dr. Hanson B12 deficiency with positive antiparietal cell antibodies but negative intrinsic factor antibodies Colonoscopy in April revealed only a small tubular adenoma that was removed. The region of the ileocecal valve appeared normal and without any sign of residual polyp. Upper endoscopy in April revealed a hiatal hernia and some mild gastritis, but biopsies were negative for H. pylori and celiac disease. Tardive dyskinesia Surgical History Surgery Date(Month/Year) Sigmoid diverticulitis with surgery by Kunal Rudolph in 2006 Perirectal abscess Cholecystectomy in 2012 Left lumpectomy and lymph nodes for sheyla st cancer Hospitalization History Reason Date(Month/Year) GI bleed 2021
--- OUTSIDE RECORDS SUMMARY | 2024-09-13 18:42 | XMS_ITS | Clinical Summary ---
Author Organization [facility] Address [address] [place] [address] Care Team Providers Care Brake Repair Supervisor Name Role Phone Unavailable Primary Care Provider Unavailabl e Social History Tobacco Use Types Packs/Day Years Used Date Smoking Tobacco: Never Assessed Sex and Gender Information Value Date Recorded Sex Assigned at Not on file Gender Identity Not on file Sexual Orientation Not on file Plan of Treatment Health Maintenance Due Date Last Done Comments Hepatitis C Virus Screening 1965 HIV Screening 02/01/1976 DTaP/Tdap/Td Vaccines (1 - Tdap) 1982 Pneumococcal Vaccines 50+ (1 of 1 - PCV) 2013 Zoster (Shingles) Vaccine (1 of 2) 2013 COVID-19 Vaccine ( - 2023-2 5 season) 2024 RSV Vaccine 60 years and old er and Patients (1 - 1-dose 75+ series) 2038 Hepatitis B Vaccines Aged Out No long er eligible based on patient's age to complete this topic Pneumococcal Vaccine: Pediat lindsey (0-5 Years) and At-Risk Patients (6 to 49 Years) Aged Out No longer eligible b ased on patient's age to complete this topic
--- OUTSIDE RECORDS SUMMARY | 2024-09-13 18:42 | XMS_ITS | Encounter Summary ---
Author Organization [email or web address] Address [address] [facility] [address] [place] [address] Care Team Providers Care Chief Merchandising Officer Name Role Phone NameMariano MD Primary Care Provider [phone] Reason for Referral * Consultation (Routine) - Pending Review Specialty Diagnoses / Procedures Referred By Hang aaron Referred To Contact Ophthalmology Diagnoses Skin tag Mariano Rodríguez MD [address] [place] [phone] Phone: tel: fax: Referral ID Status Reason Start Date Expiration Date Visits Requested Visits Authorized [id number] Pending Review Specialty Services Required 09/13/2024 09/13/2025 1 1 Reason for Visit * Reason Comments Follow-up Encounter Details Date Type Department Care Team ([facility] st Contact Info) Description 09/13/2024 3:30 PM EST Office Visit [facility] [address] [place] [phone] Mariano Rodríguez MD [address] [place] [address] [phone] Vitamin B12 deficiency (Primary Dx); Skin tag Social History Tobacco Use Types Packs/Day Years Used Date Smoking Tobacco: Never Smokeless Tobacco: Never Tobacco Cessation:Counseling Given: Not Answered Alcohol Use Standard Drinks/Week Comments Never 0 [...] AM EDT documented as of this encounter Last Filed Vital Signs Vital Sign Reading Time Taken Comments Blood Pressure 127/66 09/13/2024 3:23 PM EST Pulse 70 09/13/2024 3:23 PM EST Temperature 35.6 ??C (96.1 ??F) 09/13/2024 3:23 PM ES T Respiratory Rate 18 09/13/2024 3:23 PM EST Oxygen Saturation 97% 09/13/2024 3:23 PM EST Inhaled Oxygen Concentration - - Weight 100 kg (221 lb 3.2 oz) 09/13/2024 3:23 PM EST Height 165.1 cm (5' 5 ) 09/13/2024 3:23 PM EST Body Mass Index 36.81 09/13/2024 3:23 PM EST documented in this encounter Progress Notes * Mariano Rodríguez, - 09/13/2024 3:30 PM EST Subjective Patient ID: Kezia Michael is a 59 y.o. female who presents for Follow-up. Patient comes for follow-up visit. She feels well. She is in good spirits. She has a prescribing psychiatrist. She had resolution of symptoms of facial tardive dyskinesia with modification of her psychiatric regimen. She still has mild hand tremors. She asked to refill her oral B12 supplements. She has a history of B12 deficiency. She used to be treated with IM B12 but was transitioned successfully to oral supplementation. She is due to recheck B12 levels. 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 She is up-to-date with her mammograms. She finished 5 years of letrozole in December of last year. Bone density 2021 was normal. Review of Systems Constitutional: Negative for chills and fever. HENT: Negative for sore throat. Respiratory: Negative for cough, shortness of breath and wheezing. Cardiovascular: Negative for chest pain, palpitations and leg swelling. Gastrointestinal: Negative for abdominal pain. Psychiatric/Behavioral: The patient is not nervous/anxious. Visit Vitals BP 127/66 (BP Location: Left arm, Patient Position: Sitting, BP Cuff Size: Adult) Pulse 70 Temp 96.1 ??F (35.6 ??C) (Temporal) Resp 18 Ht 5' 5 (1.651 m) Wt 221 lb 3.2 oz (100 kg) SpO2 97% BMI 36.81 kg/m?? Smoking Status Never BSA 2.14 m?? Objective Physical Exam Constitutional: Appearance: Normal appearance. Cardiovascular: Rate and Rhythm: Normal rate and regular rhythm. Heart sounds: No murmur heard. No gallop. Pulmonary: Effort: Pulmonary effort is normal. No respiratory distress. Breath sounds: Normal breath sounds. No wheezing. Musculoskeletal: Right lower leg: No edema. Left lower leg: No edema. Neurological: Mental Status: She is alert. Assessment/Plan Diagnoses and all orders for this visit: Vitamin B12 deficiency Comments: Refill oral B12 supplements in addition to her vitamin B complex. Check B12 levels Orders: - Vitamin B12/Folate, Serum Panel; Future Skin tag Comments: Patient has a skin tag on the left lower eyelid she would like removed. I will refer her to ophthalmology to have this removed. Orders: - Referral to Ophthalmology; Future Other orders - cyanocobalamin (Vitamin B-12) 500 MCG tablet; Take 1 tablet (500 mcg) by mouth Once per day. documented in this encounter Plan of Treatment Upcoming Encounters Date Type Department Care Team (Late st Contact Info) Description 12/29/2024 3:30 PM EDT Office Visit [facility] [address] [place] [phone] Name, MD Mariano [address] [place] [phone] Scheduled Orders Name Type Priority Associated Diagnoses Orde r Schedule Vitamin B12/Folate, Serum Panel Lab Routine Vitamin B12 deficiency Expected: 09/13/2024, Expires: 09/13/2025 Scheduled Referrals Name Type Priority Associated Diagnoses Order Schedule Referral to Ophthalmology Outpatient Referral Routine Skin tag Expected: 09/13/2024 (Approximate), Expires: 09/13/2025 documented as of this encounter Visit Diagnoses Diagnosis Vitamin B12 deficiency- Primary Other B-complex deficiencies Skin tag Unspecified hypertrophic and atrophic condition of skin documented in this encounter Additional Health Concerns Assessment Noted Time PHQ-9 Depression Total Score: 8 07/29/19 24 4:18 PM EST documented as of this encounter Care Teams Chief Merchandising Officer Relationship Specialty Start Date End Date Name, MD Mariano [address] [place] [phone] PCP - General Family Medicine 02/27/17 Liliana Flowers Supervisor QuiltingIncubator Operator 08/16/24 documented as of this encounter
--- OUTSIDE RECORDS SUMMARY | 2024-09-13 18:42 | XMS_ITS | Clinical Summary ---
Author Organization [employer] Address [address] [facility] [address] [place] [address] Care Team Providers Care Apartment Rental Clerk Name Role Phone Name, Mariano GO Primary Care Provider [phone] Allergies No known active allergies Medications Vortioxetine HBr (Trintellix) 20 MG tablet Take 1 tablet by mouth at bed time. 07/24/19 18 Active polyethylene glycol, PEG, 3350 (Glycolax) 17 GM/SCOOP powder take 1 packet by oral route every day mixed with 8 oz. water, juice, soda, coffee or tea 11/28/19 16 Active melatonin 5 MG tablet take 2 tablet by oral route every day at bedtime Active ferrous sulfate 325 (65 Fe) MG tablet Take 1 tablet by mouth every 12 (twelve) hours. Active albuterol 108 (90 Base) MCG/ACT inhaler Inhale 2 puffs every 4 (four) hours. 09/14/19 22 Active clonazePAM (KlonoPIN) 1 MG tablet Take 1 tablet by mouth every 8 (eight) hours. Active fluticasone-sa lmeterol (Advair) 230-21 MCG/ACT inhalerIndicat ions:Intermitt ent asthma, unspecified asthma severity, unspecified whether complicated Inhale 2 puffs in the morning and at bedtime. Rinse mouth with water after use to reduce aftertaste and incidence of candidiasis. Do not swallow. 12 g 11 07/01/20 22 Active Vortioxetine HBr 20 MG tablet Take 20 mg by mouth. 11/04/19 19 Active cloNIDine (Catapres) 0.1 MG tablet Take 0.1 mg by mouth in the evening. Active atorvastatin (Lipitor) 10 MG tabletIndicati ons:Morbid obesity (CMS/HCC) TAKE 1 TABLET BY MOUTH AT BEDTIME 90 tablet 3 03/27/20 24 Active valbenazine tosylate (Ingrezza) 80 MG capsule Take 1 capsule (80 mg) by mouth Once per day. 11/17/19 24 025 Active Blood Pressure Monitoring (Blood Pressure Cuff) miscIndication s:Elevated blood pressure reading 1 Units if needed each day (as needed daily). 1 each 1 12/15/19 24 Active b complex vitamins capsule Take 1 capsule by mouth Once per day. 30 capsule 11 02/24/20 24 025 Active famotidine (Pepcid) 40 MG tabletIndicati ons:Gastroesop hageal reflux disease, unspecified whether esophagitis present TAKE 1 TABLET BY MOUTH AT BEDTIME 90 tablet 06/08/20 24 Active famotidine (Pepcid) 40 MG tabletIndicati ons:Gastroesop hageal reflux disease, unspecified whether esophagitis present Take 1 tablet (40 mg) by mouth at bedtime. 90 tablet 1 06/14/20 24 Active omeprazole (PriLOSEC) [address] capsuleIndicat ions:Gastroeso phageal reflux disease, unspecified whether esophagitis present TAKE 1 CAPSULE BY MOUTH EVERY MORNING BEFORE MEALS 90 capsule 1 07/06/20 24 Active clotrimazole-b etamethasone (Lotrisone) cream APPLY TOPICALLY TO AFFECTED AREA(S) TWICE DAILY FOR 14 DAYS 90 g 1 08/19/19 25 Active meclizine (Antivert) 25 MG tablet TAKE 1 TABLET BY MOUTH THREE TIMES DAILY IN THE MORNING, AT NOON, AND AT BEDTIME NEEDED FOR DIZZINESS 30 tablet 08/24/19 25 Active cyanocobalamin (Vitamin B-12) 500 MCG tablet Take 1 tablet (500 mcg) by mouth Once per day. 90 tablet 3 09/14/19 25 026 Active letrozole (Femara) 2.5 MG chemo tablet Take 1 tablet by mouth at bed time. 025 Discontinued(Th erapy completed) cyanocobalamin (Vitamin B-12) 500 MCG tablet Take 500 mcg by mouth in the morning. 07/12/20 22 025 Discontinued(Re order (will not trigger notification to Pharmacy)) clotrimazole-b etamethasone (Lotrisone) creamIndicatio ns:Intertrigo labialis Apply topically 2 times daily for 14 days. 84 g 1 12/15/19 24 025 Discontinued meclizine (Antivert) 25 MG tablet Take 1 tablet (25 mg) by mouth if needed in the morning, at noon, and at bedtime for dizziness for up to 10 days. 30 tablet 04/27/20 24 025 Discontinued Active Problems Problem Noted Date Diagnosed Date Pelvic mass 02/09/2024 Assessment & Plan (02/09/2024 5:48 PM EDT): Urgent referral to [facility] shirt sorter for further evaluation, pt denies constitutional symptoms, and denies dysuria. Pt and family aware to call with any questions or new symptoms Abnormal urinalysis 02/04/2024 Acute lower GI bleeding 02/04/2024 Acute right-sided back pain 02/04/2024 Assessment & Plan (02/09/2024 5:47 PM EDT): Acetaminophen and ibuprofen rx, take with food, continue walking Conjunctivitis 02/04/2024 Rectal bleeding 01/27/2024 Internal hemorrhoid, bleeding 01/27/2024 Assessment & Plan (01/27/2024 8:10 PM EDT): Had colonoscopy on 2021, not a significant bleeding or inflammation today Order Sitz batch prn pain Rx preparation H ointment at least bid or after each BM x 1-2w, re consult with PCP if bleeding doesn't stop then. Lichen sclerosus 12/30/2023 Assessment & Plan (12/30/2023 4:59 PM EDT): Taper topical steroid update for reoccurring symptoms Acute cystitis without hematuria 12/18/2023 Assessment & Plan (12/18/2023 5:03 PM EDT): Continue current rx until complete, asymptomatic. Aware of s/s to report, no s/s of complicated cystitis Mima infection 12/15/2023 Intertrigo labialis 12/15/2023 Assessment & Plan (12/18/2023 5:02 PM EDT): Treat with diflucan, pt declines vaginal exam today, if symptoms persist rtc. Elevated blood pressure reading 12/15/2023 Assessment & Plan (12/18/2023 5:02 PM EDT): Rtc in 4 weeks, monitor at home Iron deficiency anemia due to chronic blood loss 12/15/2023 Postmenopausal bleeding 04/01/2023 Cyst of ovary 04/01/2023 Cyst of Bartholin's gland duct 04/01/2023 Atypical ductal hyperplasia of breast 04/01/2023 Adnexal cyst 04/01/2023 Cobalamin deficiency 06/04/2022 Chronic anemia 06/04/2022 Lobular carcinoma in situ of breast 11/27/2018 Obstructive sleep apnea syndrome 02/18/2018 Recurrent major depressive episodes, moderate Migraine 07/24/2017 Carpal tunnel syndrome 07/24/2017 History of cholecystectomy 06/18/2013 Hyperplastic polyp of intestine 05/01/2012 Morbid obesity 12/02/2011 Hidradenitis 12/02/2011 Gastroesophageal reflux disease 12/02/2011 Asthma 12/02/2011 Anxiety state 12/02/2011 Encounters Date Type Department Care Team Description 09/13/2024 3:30 PM EST Office Visit [facility] [address] [place] [phone] Mariano Rodríguez MD Vitamin B12 deficiency (Primary Dx); Skin tag 09/12/2024 Orders Only [facility] [address] [place] [address] Provider, MD Kasey 09/09/2024 Telephone [facility] [address] [place] [address] Mariano Rodríguez MD chartprep 08/23/2024 Refill [facility] [address] [place] [address] Mariano Rodríguez MD 08/19/2024 Refill [facility] [address] [place] [address] Palak Bragg, ZANDRA Diseases of lips 08/16/2024 Telephone [facility] [address] [place] [address] Mariano Rodríguez MD Care Coordination (ICP Care Plan ) 07/06/2024 Refill [facility] [address] [place] [address] Mariano Rodríguez MD Gastroesophageal reflux disease, unspecified whether esophagitis present 06/18/2024 Telephone [facility] [address] [place] [address] Mariano Rodríguez MD PT1 from Last 3 Months Immunizations Name Administration Dates Next Due Influenza injectable quadriv alent IIV4 with preservative 04/01/2023,07/24/2017,05/27/2016,05/09 Influenza injectable quadriv alent preservative free 03/22/2022,04/02/2021,08/21/2020,05/06,05/01/2019,07/20/2018 Influenza, IIV3, injectable 06/05/2021, 9,06/24/2014 Influenza, Split (incl. krista fied surface antigen) 03/30/2013,05/01/2012 Influenza, seasonal, injecta ble, preservative free 04/27/2024 Adebayo SARS-CoV-2 Vaccination 10/23/2020 MMR 04/15/2003 Pfizer Covid-19 Vaccine 12+ 04/27/2024, Pfizer Covid-19 Vaccine 12+ Bivalent 07/01/2022, 10/26/2021 Pfizer Covid-19 Vaccine 12+ angie-sucrose (Granger Cap) 10/26/2021 Pneumococcal Conjugate PCV 20 11/17/2023 Pneumococcal Polysaccharide PPSV23 05/05/2007 TD (adult), 2 Lf tetanus tox oid, preservative free, adsorbed 04/15/2003 Tdap 04/01/2023,05/01/2012 Social History Tobacco Use Types Packs/Day Years [...] Orientation Straight 05/13/2022 10 :14 AM EDT Last Filed Vital Signs Vital Sign Reading [...] Mass Index 36.81 09/13/2024 3:23 PM EST Plan of Treatment Upcoming Encounters Date Type Department Care Team (Late st Contact Info) Description 12/29/2024 3:30 PM EDT Office Visit [facility] [address] [place] [address] Name, MD [place] [address] Health Maintenance Due Date Last Done Comments CT Colonography 1963 FIT DNA/Cologuard 1963 FIT 1963 FOBT 1963 HIV Screening 1963 Sigmoidoscopy 1963 Hepatitis C Screening 1981 HPV/Cotest 1993 Zoster Vaccines (1 of 2) 2013 Cervical Cancer Screening 01/24/2018 Pap Smear 01/24/2018 01/24/2015 RSV Patients and Patients Aged 60 years or older (1 - Risk 60-74 years 1-dose series) 2023 Depression Screening 07/29/2024 07/29/2023, 07/29/19 24 SDOH Screening 07/29/2024 07/29/2023 Alcohol/Substance Use Screening 02/23/2025 02/24/2024 Mammogram 03/28/2025 03/28/2023, 090 12/2021, 03/09/2020, Additional history exists Colonoscopy 05/17/2025 05/17/2022, 04/14, 08/09/2020 Colorectal Cancer Screening 05/17/2025 Tobacco Screening 09/13/2025 09/13/2024 Lipid Panel 07/30/2027 07/30/2022, 09/30/2020 DTaP/Tdap/Td Vaccines (3 - Td or Tdap) 04/01/2033 04/01/2023, 05/01/2012, 04/15/2003 Pneumococcal Vaccine: 50+ Years Completed 11/17/2023, 05/05/2007 COVID-19 Vaccine Completed 04/27/2024, , 10/26/2021, Additional history exists Influenza Vaccine Completed 04/27/2024, , 03/22/2022, Additional history exists HIB Vaccines Aged Out No longer eligi ble based on patient's age to complete this topic HPV Vaccines Aged Out No longer eligi ble based on patient's age to complete this topic Hepatitis A Vaccines Aged Out No long er eligible based on patient's age to complete this topic Hepatitis B Vaccines Aged Out No long er eligible based on patient's age to complete this topic IPV Vaccines Aged Out No longer eligi ble based on patient's age to complete this topic Meningococcal Vaccine Aged Out No charito qian eligible based on patient's age to complete this topic RSV under 20 months Aged Out No longe r eligible based on patient's age to complete this topic Rotavirus Vaccines Aged Out No longer eligible based on patient's age to complete this topic Procedures Procedure Name Priority Date/Time Associated Diagnosis Comments BI MAMMOGRAM SCREENING TOMOSYNTHESIS BILATERAL Routine 03/28/2023 4:08 PM EDT LIPID PANEL, STANDARD Routine 07/30/2022 3:48 PM EST HM COLONOSCOPY Routine 05/17/2022 HM PAP/HPV Routine 01/24/2015 from Last 3 Months or Most Recently Relevant to Health Maintenance Results * BI Mammogram Screening Tomosynthesis Bilateral (03/28/2023 4:08 PM EDT) Anatomical Region Laterality Modality Breast Bilateral Mammography 03/28/2023 4:08 PM EDT Narrative 04/12/2023 8:04 PM EDT ? [facility] [place] ? [address] ?[place] [address] ? Mammography Report ? Signed ? Patient: Michael,Merkinedys ?MR#: [id number] ?? [id number] ? : 1965 ?Acct:[id number] ? Age/Sex: 58 / F ?ADM Date: 09/15/23 ? Loc: HO.MAMMO ? Attending Dr: Mariano Name MD ? Ordering Physician: Name,Mariano MD ?Results: 2Benign Fi ?? ndings ? Date of Service: 03/28/23 ?Follow Up: 1 Year From Orig ?? inal Mammogram ? Procedure(s): MM tomosynthesis screening BI ?? Accession Number(s): [id number] ? cc: Name,Mariano GO ? EXAMINATION: ?? MM SCREENING DIGITAL BREAST TOMOSYNTHESIS, BILATERAL ? CLINICAL INFORMATION: ? Screening. Asymptomatic. ? The patient is status post right breast surgery in 2019 showing lesions ?? their place her at increased risk of breast cancer. These include focal ?? atypical ductal hyperplasia, LCIS and flat epithelial atypia. ? COMPARISON: ?? Mammography: This study is compared with prior exams dating back to ?? 2019. ? TECHNIQUE: ?? Digital breast tomosynthesis is performed in both the craniocaudal and ?? mediolateral oblique views along with computer-aided detection (CAD). ?? Synthesized 2D images are generated from the tomosynthesis. ? FINDINGS: ?? There are scattered areas of fibroglandular density (ACR BI-RADS breast ?? composition Category b). ? There are no significant masses, abnormal calcifications, or other ?? abnormalities. ?? There are minor postsurgical changes in the right breast and benign ?? calcification unchanged, from prior studies. ? MM/MM tomosynthesis screening BI ?? IMPRESSION: ?? No mammographic evidence of malignancy. ? ASSESSMENT: ? BI-RADS BI-RADS 2 - Benign Findings ? RECOMMENDATION: ?? Routine annual mammography screening. ? 1 year F/U ? This examination should not preclude the clinical evaluation of a ?? suspicious palpable abnormality. ? This patient's information was entered into a reminder system with a ?? target due date for their next mammogram. ? Dictated By: ?Rachael Sanchez MD ? Signed By: ?<Electronically signed by Rachael Sanchez MD in OV> ? 04/12/23 2000 ? DD/ 1608 ? TD/TT: ? Urban Anthropologist: ? Procedure Note Gladys, Image - 04/12/2023 Rafi [facility] [address] [place] [address] Mammography Report Signed Patient: Thomas MichaelR#: [id number] : 1965Acct:[id number] Age/Sex: 58 / FADM Date: 03/28/23 Loc: HO.MAMMO Attending Dr: Mariano Rodríguez MD Ordering Physician: Mariano Rodríguez MDResults: 2Benign Fi ndings Date of Service: 03/28/23Follow Up: 1 Year From Orig inal Mammogram Procedure(s): MM tomosynthesis screening BI Accession Number(s): [id number] cc: Mariano Rodríguez MD EXAMINATION: MM SCREENING DIGITAL BREAST TOMOSYNTHESIS, BILATERAL CLINICAL INFORMATION: Screening. Asymptomatic. The patient is status post right breast surgery in [address] her at increased risk of breast cancer. These include focal atypical ductal hyperplasia, LCIS and flat epithelial atypia. COMPARISON: Mammography: This study is compared with prior exams dating back to 2019. TECHNIQUE: Digital breast tomosynthesis is performed in both the craniocaudal and mediolateral oblique views along with computer-aided detection (CAD). Synthesized 2D images are generated from the tomosynthesis. FINDINGS: There are scattered areas of fibroglandular density (ACR BI-RADS breast composition Category b). There are no significant masses, abnormal calcifications, or other abnormalities. There are minor postsurgical changes in the right breast and benign calcification unchanged, from prior studies. MM/MM tomosynthesis screening BI IMPRESSION: No mammographic evidence of malignancy. ASSESSMENT: BI-RADS BI-RADS 2 - Benign Findings RECOMMENDATION: Routine annual mammography screening. 1 year F/U This examination should not preclude the clinical evaluation of a suspicious palpable abnormality. This patient's information was entered into a reminder system with a target due date for their next mammogram. Dictated By: Rachael Sanchez MD Signed By: <Electronically signed by Rachael Sanchez MD in OV> 04/12/231999 DD/ 1608 TD/TT: Urban Anthropologist: Mariano Rodríguez MD IMLino BI PROCEDURES Edited Result - Final * Lipid Panel, Standard (07/30/2022 3:48 PM EST) Triglycerides 139 mg/dL [facility] Comment:Desirable Triglyceri de: less than 150 mg/dLBorderline High Triglyceride 150-199 mg/dLHigh Triglyceride: 200-499 mg/dLVery High Triglyceride: greater than or equal to 5OO mg/dL Cholesterol 154 mg/dL [facility] Comment:Desirable Cholestero l: less than 200 mg/dLBorderline High Cholesterol: 200-239 mg/dLHigh Cholesterol: greater than 239 mg/dL LDL Cholesterol Calculated 92 mg/dl [facility] Comment:Desirable LDL: less than 100 mg/dLNear Optimal/Above Optimal LDL: 110- 129 mg/dLBorderline High LDL: 130-159 mg/dLHigh LDL: 160-189 mg/dLVery High LDL: greater than or equal to 190 mg/dL HDL Cholesterol 35 mg/dL [facility] Comment:Desirable HDL: great er than 40 mg/dL Note: This HDL assay may give artificially low results in patients with liver disease. 07/30/2022 3:48 PM EST 07/30/2022 3:50 PM EST [facility] External Provider LAB BLO OD ORDERABLES Final Result [facility] [address] [place], [place] [phone] * Colonoscopy (05/17/2022) Colonoscopy performed Historical Provider HEALTH MAINTENANCE Edited Result - Final * Hm Pap Smear (01/24/2015) HM Pap smear performed Historical Provider HEALTH MAINTENANCE Final Result from Last 3 Months or Most Recently Relevant to Health Maintenance Insurance [facility] C3 Care Teams Apartment Rental Clerk Relationship Specialty Start Date End Date Name, MD Mariano [address] [place], [place] PCP - General Family Medicine 02/27/17 Liliana Flowers Supervisor Furnace ProcessSolar System Designer 08/16/24
[2024-09-13 18:54] LABS: Folate 4.8 ng/mL (> or = 4.0); Vitamin B12 629 pg/mL (200-900)
== END 2024-09-13 16:00 | disposition home or self-care (01) ==
LOC: HO.HHCL 15:59
PROVIDERS: Visit Provider Internal Medicine Geriatric Medicine
DX: E53.8 Deficiency of other specified B group vitamins (principal)
CPT/HCPCS: 36415; 82607; 82746

== ENCOUNTER 2024-12-28 15:12 | Outpatient (REF) | payer MEDICAID, SELFPAY ==
--- OUTSIDE RECORDS SUMMARY | 2024-12-28 17:42 | XMS_ITS ---
Author Organization [facility] Address [address] [place] [id number] Care Team Providers Care Hydraulic Governor Assembler Name Role Phone Name Mariano GO Primary Care Provider Reece Suazo [phone] REASON FOR VISIT r/f request on ferrous sulfate Medications Medication SIG (Take, Route, Frequency, Duration) Notes Start Date End Date Status Ferrous Sulfate 325 (65 Fe) MG 1 tablet Orally Twice a day for 30 day(s) 01/05/2023 Active Encounters Encounter Location Date Provider Diagnosis [facility] [address] [place] [id number] 01/07/2024 Reece Glez Plan Of Treatment Medication Medication Name Sig Start Date Stop Date Notes Ferrous Sulfate 325 (65 Fe) MG 1 tablet Orally Twice a day for 30 day(s) 01/05/2023 Progress Notes * KRISTEN KAUFFMANMARY KAYSDOB:[birth year] (58 yo F)Acc No.[id number]:01/07/2024 Patient:?EULALIO KAUFFMAN S :1965???Age:58 Y???Sex:Female Address:[address], [place] [address] * Refills? Refill Ferrous Sulfate Tablet, 325 (65 Fe) MG, Orally, 60 Tablet, 1 tablet, Twice a day, 30 day(s), Refills=11 * true * Date:? Generated for Ben hogan/Sandy/eTransmitting on:?12/28/2024 05:42 PM EDT
== END 2024-12-28 15:13 | disposition home or self-care (01) ==
LOC: HO.LAB 15:12
PROVIDERS: PCP Internal Medicine Geriatric Medicine; Visit Provider Internal Medicine
DX: Z13.89 Encounter for screening for other disorder (principal)

== ENCOUNTER 2025-01-03 15:31 | Outpatient (REF) | payer MEDICAID, SELFPAY ==
--- NOTE | ~2025-01-03 | CT_ITS ---
EXAMINATION: CT ABDOMEN AND PELVIS WITH CONTRAST CLINICAL INFORMATION: Worsening anemia COMPARISON: December 06, 2023 TECHNIQUE: Multidetector volumetric images were obtained from the superior aspect of the liver through the pubic symphysis following administration 85 mL of Omnipaque 350 intravenous contrast. Sagittal and coronal reformatted images were obtained on the technologist's workstation. Oral contrast: No This CT examination was performed using dose optimization techniques as appropriate, variously including the following: *Automated exposure control *Adjustment of mA and/or kV according to patient size (this includes techniques or standardized protocols for targeted exams where dose is matched to indication/reason for exam; i.e. extremities or head) *Use of iterative reconstruction technique DLP: 771 mGY*cm FINDINGS: LUNG BASES: The visualized lung bases are unremarkable. LIVER, GALLBLADDER, AND BILIARY TREE: The liver is normal in size, shape, and attenuation. No focal hepatic lesion or biliary ductal dilatation is present. The bladder is surgically absent with clips in the gallbladder fossa. PANCREAS: Unremarkable. SPLEEN: Unremarkable. ADRENAL GLANDS: Unremarkable. KIDNEYS AND URETERS: 2 mm stone in the lower right kidney is unchanged. BLADDER: Unremarkable. GASTROINTESTINAL TRACT: There is a sliding hiatal hernia involving gastric cardia. There is an end to end anastomosis in the sigmoid colon. Extensive diverticulosis is present without wall thickening. Appendix is gas-filled. ABDOMINAL WALL: Left supraumbilical hernia containing greater omentum is similar to the prior. LYMPH NODES: Normal. VASCULAR: Unremarkable. PELVIC VISCERA: Again seen is a mass in the pelvis along the superior margin of the uterus, likely associated with left ovary, measuring 8.2 x 10.0 cm, previously 7.4 x 9.3 cm . Right ovary and uterus are unremarkable. There is no ascites. OSSEOUS STRUCTURES: Moderate degenerative disc disease and facet arthropathy is present. There are osteophytes involving the acetabular roofs bilaterally. CT/CT abdomen pelvis w IV con IMPRESSION: Continued enlargement of a left ovarian cyst versus cystadenoma. Follow-up MRI without and with IV contrast versus consultation for surgical evaluation. Stable 2 mm nonobstructing stone in the lower right kidney. Stable left supraumbilical hernia containing greater omentum. Extensive diverticulosis Fleischner guidelines were followed. Electronically signed by: Julio Santos MD 01/03/2025 05:34 PM EDT RP
[2025-01-03] MEDS: iohexoL 350 MG/ML 100 ML INFUS..BTL 85 ML IV (16:13)
--- OUTSIDE RECORDS SUMMARY | 2025-01-03 17:01 | XMS_ITS | Encounter Summary ---
Author Organization [employer] Address [address] 7[address] [place] [address] Care Team Providers Care School Athletic Director Name Role Phone Name, Mariano GO Primary Care Provider [phone] Encounter Details Date Type Department Care Team (Latest Contact Info) Description 12/29/2024 Travel Social History Tobacco Use Types Packs/Day Years [...] Care Team (Late st Contact Info) Description 04/12/2025 4:00 PM EDT Office Visit [facility] [address] [place] [address] Name, MD Mariano [address] [place] [address] documented as of this encounter Visit Diagnoses Not on filedocumented in this encounter Additional Health Concerns Assessment Noted Time PHQ-9 Depression Total Score: 8 07/29/19 24 4:18 PM EST documented as of this encounter Care Teams School Athletic Director Relationship Specialty Start Date End Date Name, MD Mariano [address] [place] [id number] PCP - General Family Medicine 02/27/17 Liliana Flowers Laborer Wrecking And SalvagingMagnetic Observer 08/16/24 documented as of this encounter
[2025-01-04 08:34] LABS: Creatinine POC 0.7 mg/dL (0.5-1.4); GFR POC > 60
== END 2025-01-03 15:32 | disposition home or self-care (01) ==
LOC: HO.CT 15:31
PROVIDERS: PCP Internal Medicine Geriatric Medicine; Visit Provider Internal Medicine
DX: D64.9 Anemia, unspecified (principal)
CPT/HCPCS: 74177; 82565; Q9967

== ENCOUNTER → 2025-01-03 15:34 | Outpatient (BNV) | payer MEDICAID, SELFPAY | PROVIDERS: PCP Internal Medicine Geriatric Medicine; Visit Provider Radiology Diagnostic Radiology | DX: K57.30 Diverticulosis of large intestine without perforation or abscess without bleeding (principal) | CPT/HCPCS: 74177 ==

== ENCOUNTER 2025-04-26 15:11 | Outpatient (REF) | payer MEDICAID, SELFPAY ==
[2025-04-26 16:13] LABS: MANUAL DIFF FLAG NO
[2025-04-26 16:36] LABS: Hematocrit 43.3 % (37.0-47.0); Hemoglobin 13.6 g/dl (12.0-16.0); Imm Gran Abs Auto 0.02 X10*3/uL (0.00-0.03); Imm Gran Pct Auto 0.4 % (0.0-0.4); Lymphocytes Absolute Auto 1.4 X10*3/uL (1.2-4.9); Mean Corpuscular HGB Conc 31.4 g/dl (31.0-35.0); Mean Corpuscular Hemoglobin 28.1 pg (27.0-33.0); Mean Corpuscular Volume 89.5 fL (80.0-98.0); NRBC Abs Auto 0.000 X10*3/uL (0.0-0.012); NRBC Pct Auto 0.0 /100WBC (0.0-0.2); Platelet Count 282 X10*3/uL (160-400); Red Blood Count 4.84 X10*6/uL (4.20-5.50); White Blood Count 5.5 X10*3/uL (4.8-10.8)
[2025-04-26 16:59] LABS: Alanine Aminotransferase 18 U/L (0-31); Albumin Level 4.2 g/dL (3.5-5.0); Alkaline Phosphatase 118 U/L (39-117); Anion Gap 11 (12-20); Aspartate Amino Transferase 19 U/L (5-31); Blood Urea Nitrogen 10 mg/dL (9-16); Calcium 8.9 mg/dL (8.4-10.2); Carbon Dioxide 29 mmol/L (22-29); Chloride 107 mmol/L (96-108); Cholesterol 173 mg/dL (<200); Estimated Glomerular Filt Rate > 60; HDL Cholesterol 42 mg/dL (>40); Potassium 4.0 mmol/L (3.3-5.1); Sodium 143 mmol/L (135-145); Total Protein 7.0 g/dL (6.5-8.0); Triglycerides 145 mg/dL (<150)
[2025-04-26 17:16] LABS: Vitamin B12 1212 pg/mL (200-900)
--- OUTSIDE RECORDS SUMMARY | 2025-04-26 18:05 | XMS_ITS | Encounter Summary ---
Author Organization [employer] Address [address] [facility] 7[address] [place] [address] Care Team Providers Care Conformal Pad Former Name Role Phone Name, Mariano GO Primary Care Provider [phone] Reason for Visit * Reason Onset Date Comments Med Refill 09/27/2024 Encounter Details Date Type Department Care Team ([facility] st Contact Info) Description 09/27/2024 Telephone [facility] [address] [place] [address] Name, MD Mariano [address] [place] [address] Med Refill Social History Tobacco Use Types Packs/Day Years [...] encounter Miscellaneous Notes * Telephone Encounter - Karlene Nixon LPN - 09/27/2024 9:47 AM EDT Medication pended to PCP. * Telephone Encounter - Rosa Baum - 09/27/2024 9:45 AM EDT TC from pt requesting medication refill. Medications needing refill : atorvastatin (Lipitor) 10 MG tablet To be sent to: [facility] documented in this encounter Plan of Treatment Upcoming Encounters Date Type Department Care Team (Late st Contact Info) Description 07/11/2025 4:00 PM EST Office Visit [facility] [address] [place] [id number] Name, MD Mariano [address] [place] [id number] documented as of this encounter Visit Diagnoses Not on filedocumented in this encounter Additional Health Concerns Assessment Noted Time PHQ-9 Depression Total Score: 8 07/29/19 24 4:18 PM EST documented as of this encounter Care Teams Conformal Pad Former Relationship Specialty Start Date End Date NameMariano MD [address] [place] [id number] PCP - General Family Medicine 02/27/17 Liliana Flowers Hardwood FinisherWater Leak Repairer 08/16/24 documented as of this encounter
--- OUTSIDE RECORDS SUMMARY | 2025-04-26 18:05 | XMS_ITS | Encounter Summary ---
Author Organization [employer] Address [address] [facility] 7t [place] [address] Care Team Providers Care Psychiatric Technician Assistant Name Role Phone Name, Mariano GO Primary Care Provider [phone] Encounter Details Date Type Department Care Team (Latest Contact Info) Description 03/27/2021 Abstract [facility] CONVERSION[facility] Dental, Provider, DDS Social History Tobacco [...] Care Team ( st Contact Info) Description 07/11/2025 4:00 PM EST Office Visit [facility] [address] [place] [address] Name, MD Mariano [address] [place] [address] documented as of this encounter Visit Diagnoses Not on filedocumented in this encounter Care Teams Psychiatric Technician Assistant Relationship Specialty Start Date End Date Name, MD Mariano [address] [place] [address] PCP - General Family Medicine 02/27/17 Che Grissom Reformatory AttendantPrinting Film Stripper 03/27/23 08/15/24 Liliana Flowers Cutter Woodwind ReedsPrinting Film Stripper 08/16/24 documented as of this encounter
--- OUTSIDE RECORDS SUMMARY | 2025-04-26 18:05 | XMS_ITS | Encounter Summary ---
Author Organization [employer] Address [address] [facility] [address]t [place] [address] Care Team Providers Care Family Reunification Specialist Name Role Phone Name, Mariano GO Primary Care Provider [phone] Reason for Visit * Reason Onset Date Comments ER Follow-up 02/04/2024 Referral 02/04/2024 Encounter Details Date Type Department Care Team ([facility] st Contact Info) Description 02/04/[address] [facility] [address] [place] [address] Name, MD Mariano [address] [place] [address] ER Follow-up; Referral Social History Tobacco Use [...] below message, pt. Had ED visit at [facility] for pelvic cystic mass and back pain, pt. States she is doing well and she already called to OBGYN but also wants to see provider at [facility]. Pt. Advised that ED states to follow up with OBGYN but pt. States again she also wants to see provider for ED follow up at [facility] to discuss pelvic cystic mass. Pt. Schedule for Sick apt. On 02/09/2024. Pt. Also advised to go to nearest ED in case of any new or worsening symptoms. [facility] hours are reviewed. Pt. Verbally agreed and understood. 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 [address] [facility] [place] [address] Name, MD Mariano [facility] [place] [address] documented as of this encounter Visit Diagnoses Not on filedocumented in this encounter Additional Health Concerns Assessment Noted Time PHQ-9 Depression Total Score: 8 07/29/19 24 4:18 PM EST documented as of this encounter Care Teams Family Reunification Specialist Relationship Specialty Start Date End Date Name, MD Mariano [facility] [place] [address] PCP - General Family Medicine 02/27/17 Che Grissom Forest Landscape Ecology ProfessorPublic Relations Consultant 03/27/23 08/15/24 Liliana Flowers Electrical Prospecting EngineerPublic Relations Consultant 08/16/24 documented as of this encounter
--- OUTSIDE RECORDS SUMMARY | 2025-04-26 18:05 | XMS_ITS | Encounter Summary ---
Author Organization [facility] Address [address] [place] [address] Phone Care Team Providers Care Bag Sorter Name Role Phone Unavailable Primary Care Provider Unavailabl e Encounter Details Date Type Department Care Team (Late st Contact Info) Description 09/24/2017 Ancillary Orders [facility] [address] [place] [address] [place] [address] Zenaida Henriquez PA [address] [place] [address] Palpitation Social History Tobacco Use Types Packs/Day Years Used Date Smoking Tobacco: Never Assessed Comments Unknown Sex and Gender Information Value Date Recorded Sex Assigned at Not on file Legal Sex Female 10:33 AM EDT Gender Identity Not on file Sexual Orientation Not on file documented as of this encounter Plan of Treatment Not on file documented as of this encounter Results * Holter Monitor 24 Hours (09/24/2017 10:40 AM EDT) Anatomical Region Laterality Modality Heart Other Narrative 09/24/2017 11:39 AM EDT Holter monitor report Indication palpitations Findings: The underlying rhythm is a normal sinus rhythm with average heart rate of 85 bpm, minimal heart rate 55 bpm and maximum heart rate of 156 bpm. There were rare PVCs very rare ventricular couplets and a short run of ventricular bigeminy. There were very rare premature atrial contractions. Conclusion: Unremarkable Holter monitor just showing premature ventricular contractions and rare ventricular couplets and rare ventricular bigeminy. Zenaida [facility] BLES Final Result documented in this encounter Visit Diagnoses Diagnosis Palpitation Palpitations Palpitation Palpitations documented in this encounter Additional Source Comments The information contained in this document represents components of the legal health record. It is not the complete legal health record.[facility]
--- OUTSIDE RECORDS SUMMARY | 2025-04-26 18:05 | XMS_ITS | Clinical Summary ---
Author Organization [facility] Address [address] [place] [address] Care Team Providers Care Circulation Librarian Name Role Phone Unavailable Primary Care Provider Unavailabl e Social History Tobacco Use Types Packs/Day Years Used Date Smoking Tobacco: Never Assessed Comments Unknown Sex and Gender Information Value Date Recorded Sex Assigned at Not on file Legal Sex Female 6:12 PM EST Gender Identity Not on file Sexual Orientation Not on file Plan of Treatment Health Maintenance Due Date Last Done Comments Hepatitis C Virus Screening 1965 HIV Screening 02/01/1976 DTaP/Tdap/Td Vaccines (1 - Tdap) 1982 Pneumococcal Vaccines 50+ (1 of 1 - PCV) 2013 Zoster (Shingles) Vaccine (1 of 2) 2013 COVID-19 Vaccine ( - 2023-2 5 season) 2025 RSV Vaccine 60 years and old er and Patients (1 - 1-dose 75+ series) 2038 Hepatitis B Vaccines Aged Out No long er eligible based on patient's age to complete this topic
--- OUTSIDE RECORDS SUMMARY | 2025-04-26 18:05 | XMS_ITS | Clinical Summary ---
Author Organization [employer] Address [address] [facility] [place] [address] Care Team Providers Care Paving Block Cutter Name Role Phone Name, Mariano GO Primary Care Provider [phone] Allergies No known active allergies Medications polyethylene glycol, PEG, 3350 (Glycolax) 17 GM/SCOOP powder take 1 packet by oral route every day mixed with 8 oz. water, juice, soda, coffee or tea 6 Active melatonin 5 MG tablet take 2 tablet by oral route every day at bedtime Active ferrous sulfate 325 (65 Fe) MG tablet Take 1 tablet by mouth every 12 (twelve) hours. Active albuterol 108 (90 Base) MCG/ACT inhaler Inhale 2 puffs every 4 (four) hours. 2 Active clonazePAM (KlonoPIN) 1 MG tablet Take 1 tablet by mouth every 8 (eight) hours. Active fluticasone-salm eterol (Advair) 230-21 MCG/ACT inhalerIndicatio ns:Intermittent asthma, unspecified asthma severity, unspecified whether complicated Inhale 2 puffs in the morning and at bedtime. Rinse mouth with water after use to reduce aftertaste and incidence of candidiasis. Do not swallow. 12 g 11 2 Active cloNIDine (Catapres) 0.1 MG tablet Take 0.1 mg by mouth in the evening. Active valbenazine tosylate (Ingrezza) 80 MG capsule Take 1 capsule (80 mg) by mouth Once per day. 4 Active Blood Pressure Monitoring (Blood Pressure Cuff) miscIndications: Elevated blood pressure reading 1 Units if needed each day (as needed daily). 1 each 1 4 Active famotidine (Pepcid) 40 MG tabletIndication s:Gastroesophage al reflux disease, unspecified whether esophagitis present TAKE 1 TABLET BY MOUTH AT BEDTIME 90 tablet 4 Active clotrimazole-bet amethasone (Lotrisone) cream APPLY TOPICALLY TO AFFECTED AREA(S) TWICE DAILY FOR 14 DAYS 90 g 1 5 Active cyanocobalamin (Vitamin B-12) 500 MCG tablet Take 1 tablet (500 mcg) by mouth Once per day. 90 tablet 3 5 09/14/19 26 Active atorvastatin (Lipitor) 10 MG tabletIndication s:Morbid obesity (CMS/HCC) (HCC) TAKE 1 TABLET BY MOUTH AT BEDTIME 90 tablet 3 5 Active ibuprofen 600 MG tabletIndication s:Pelvic mass TAKE 1 TABLET BY MOUTH EVERY 8 HOURS NEEDED FOR MILD PAIN FOR UP TO 20 DAYS 30 tablet 1 5 Active omeprazole (PriLOSEC) [address] capsuleIndicatio ns:Gastroesophag eal reflux disease, unspecified whether esophagitis present TAKE 1 CAPSULE BY MOUTH EVERY MORNING BEFORE MEALS 90 capsule 1 5 Active FLUoxetine (PROzac) 20 MG capsule take 2 capsules by mouth once daily in the morning 5 Active famotidine (Pepcid) 40 MG tabletIndication s:Gastroesophage al reflux disease, unspecified whether esophagitis present TAKE 1 TABLET BY MOUTH AT BEDTIME 90 tablet 5 Active B Complex Vitamins (Vitamin B Complex) capsule TAKE 1 CAPSULE BY MOUTH EVERY DAY 90 each 5 Active meclizine (Antivert) 25 MG tablet TAKE 1 TABLET BY MOUTH THREE TIMES DAILY IN THE MORNING, AT NOON, AND AT BEDTIME NEEDED FOR DIZZINESS 30 tablet 5 Active miconazole (Micotin) 2 % powderIndication s:Tinea corporis Apply topically if needed for itching. 85 g 2 5 Active Active Problems Problem Noted Date Diagnosed Date Pelvic mass 02/09/2024 Assessment & Plan (02/09/2024 5:48 PM EDT): Urgent referral to [facility] general manager for further evaluation, pt denies constitutional symptoms, [...] syndrome 02/18/2018 Recurrent major depressive episodes, moderate (C MS/HCC) 07/24/2017 Migraine 07/24/2017 Carpal tunnel syndrome 07/24/2017 History of cholecystectomy 06/18/2013 Hyperplastic polyp of intestine 05/01/2012 Morbid obesity (CMS/HCC) 12/02/2011 Hidradenitis 12/02/2011 Gastroesophageal reflux disease 12/02/2011 Asthma 12/02/2011 Anxiety state 12/02/2011 Encounters Date Type Department Care Team Description 04/12/2025 4:00 PM EDT Office Visit [facility] [address] [place] [address] Name, MD Mariano Palpitations (Primary Dx); Syncope and collapse; Cobalamin deficiency; On statin therapy; Tinea corporis; Encounter for screening mammogram for malignant neoplasm of breast; Encounter for immunization 04/12/2025 Travel 02/16/2025 Refill [facility] [address] [place] [address] Name, MD Mariano 02/08/2025 Refill [facility] [address] [place] [address] Name, MD Mariano Gastroesophageal reflux disease, unspecified whether esophagitis present from Last 3 Months Immunizations Immunization Administration Dates Next Due Influenza injectable quadriv alent IIV4 with preservative 04/01/2023,07/24/2017,05/27/2016,05/09 Influenza injectable quadriv alent preservative free 03/22/2022,04/02/2021,08/21/2020,05/06,05/01/2019,07/20/2018 Influenza, IIV3, injectable 06/05/2021, 9,06/24/2014 Influenza, Split (incl. krista fied surface antigen) 03/30/2013,05/01/2012 Influenza, seasonal, injecta ble, preservative free 04/12/2025,04/27/2024 Adebayo SARS-CoV-2 Vaccination 10/23/2020 MMR 04/15/2003 Pfizer [...] Sign Reading Time Taken Comments Blood Pressure 110/62 04/12/2025 4:01 PM EDT Pulse 59 04/12/2025 4:01 PM EDT Temperature 36.2 C (97.2 F) 04/12/2025 4:01 PM EDT Respiratory Rate 18 04/12/2025 4:01 PM EDT Oxygen Saturation 97% 04/12/2025 4:01 PM EDT Inhaled Oxygen Concentration - - Weight 100 kg (220 lb 9.6 oz) 04/12/2025 4:01 PM EDT Height 167.6 cm (5' 6 ) 04/12/2025 4:01 PM EDT Body Mass Index 35.61 04/12/2025 4:01 PM EDT Plan of Treatment Upcoming Encounters Date Type Department Care Team (Late st Contact Info) Description 07/11/2025 4:00 PM EST Office Visit [facility] [address] [place] [phone] Name, MD Mariano [address] [place] [address] Health Maintenance Due Date Last Done Comments CT Colonography 1965 FIT DNA/Cologuard 1965 FIT 1965 FOBT 1965 HIV Screening 1965 Sigmoidoscopy 1965 Disability Screening 1965 Alcohol/Substance Use Screening 1975 Hepatitis C Screening 1981 HPV/Cotest 1993 Zoster Vaccines (1 of 2) 2013 Cervical Cancer Screening 01/24/2018 Pap Smear 01/24/2018 01/24/2015 RSV Patients and Patients Aged 60 years or older (1 - Risk 60-74 years 1-dose series) 2023 Depression Screening 07/29/2024 07/29/2023, 07/29/19 24 SDOH Screening 07/29/2024 07/29/2023 Mammogram 03/28/2025 03/28/2023, 09/0 12/2021, 03/09/2020, Additional history exists Colonoscopy 05/17/2025 05/17/2022, 04/14, 08/09/2020 Colorectal Cancer Screening 05/17/2025 Tobacco Screening 04/12/2026 04/12/2025 Lipid Panel 04/26/2030 04/26/2025, 07/14, 09/30/2020 DTaP/Tdap/Td Vaccines (3 - Td or Tdap) 04/01/2033 04/01/2023, 05/01/2012, 04/15/2003 Pneumococcal Vaccine: 50+ Years Completed 11/17/2023, 05/05/2007 COVID-19 Vaccine Completed 04/27/2024, , 10/26/2021, Additional history exists Influenza Vaccine Completed 04/12/2025, , 05/14/2023, Additional history exists HIB Vaccines Aged Out [...] patient's age to complete this topic Meningococcal B Vaccine Aged Out No l onger eligible based on patient's age to complete [...] Procedure Name Priority Date/Time Associated Diagnosis Comments LIPID PANEL, STANDARD Routine 04/26/2025 3:21 PM EDT On statin therapy COMPREHENSIVE METABOLIC PANEL Routine 04/26/2025 3:21 PM EDT On statin therapy CBC WITH AUTO DIFFERENTIAL Routine 04/26/2025 3:21 PM EDT Cobalamin deficiency VITAMIN B12 Routine 04/26/2025 1:21 PM EDT Cobalamin deficiency ECG 12-LEAD Routine 04/12/2025 5:09 PM EDT Palpitations Syncope and collapse BI MAMMOGRAM SCREENING TOMOSYNTHESIS BILATERAL Routine 03/28/2023 4:08 PM EDT HM COLONOSCOPY Routine 05/17/2022 HM PAP/HPV Routine 01/24/2015 from Last 3 Months or Most Recently Relevant to Health Maintenance Results * CBC auto differential (04/26/2025 3:21 PM EDT) White Blood Count 5.5 4.8 - 10.8 X10*3/uL [facility] Red Blood Count 4.84 4.20 - 5.50 X10*6/uL [facility] Hemoglobin 13.6 12.0 - 16.0 g/dl [facility] Hematocrit 43.3 37.0 - 47.0 % [facility] Mean Corpuscular Volume 89.5 80.0 - 98.0 fL [facility] Mean Corpuscular Hemoglobin 28.1 27.0 - 33.0 pg [facility] Mean Corpuscular HGB Conc 31.4 31.0 - 35.0 g/dl [facility] Red Cell Distribution Width 13.4 11.0 - 16.0 % [facility] Platelet Count 282 160 - 400 X10*3/uL [facility] Mean Platelet Volume 10.8 9.4 - 12.3 fL [facility] Neutrophils Percent Auto 61.0 45 - 73 % [facility] Imm Gran Pct Auto 0.4 0.0 - 0.4 % [facility] Lymphocytes Percent Auto 26.0 20 - 40 % [facility] Monocytes Percent Auto 9.0 2 - 11 % [facility] Eosinophils Percent Auto 2.7 0 - 4 % [facility] Basophils Percent Auto 0.9 0 - 2 % [facility] NRBC Pct Auto 0.0 0.0 - 0.2 /100WBC [facility] Neutrophils Absolute Auto 3.4 2.0 - 8.3 x10*3/uL [facility] Imm Gran Abs Auto 0.02 0.00 - 0.03 X10*3/uL [facility] Lymphocytes Absolute Auto 1.4 1.2 - 4.9 X10*3/uL [facility] Monocytes Absolute Auto 0.5 0.1 - 1.2 X10*3/uL [facility] Eosinophils Absolute Auto 0.2 0.0 - 0.4 X10*3/uL [facility] Basophils Absolute Auto 0.1 0.0 - 0.2 X10*3/uL [facility] NRBC Abs Auto 0.000 0.0 - 0.012 X10*3/uL [facility] Blood Venous blood specimen / Unknown 04/26/2025 3:21 PM EDT 04/26/2025 4:09 PM EDT us Mariano Name MD LAB BLOOD ORDERABLES Final Resul t [facility] [address] [place] [address] [phone] * (ABNORMAL) Lipid Panel, Standard (04/26/2025 3:21 PM EDT) Triglycerides 145 <150 mg/dL [facility] Comment:Desirable Triglyceri de: less than 150 mg/dLBorderline High Triglyceride 150-199 mg/dLHigh Triglyceride: 200-499 mg/dLVery High Triglyceride: greater than or equal to 5OO mg/dL Cholesterol 173 <200 mg/dL [facility] Comment:Desirable Cholestero l: less than 200 mg/dLBorderline High Cholesterol: 200-239 mg/dLHigh Cholesterol: greater than 239 mg/dL LDL Cholesterol Calculated 102(H) <100 mg/dL [facility] Comment:Desirable LDL: less than 100 mg/dLNear Optimal/Above Optimal LDL: 110- 129 mg/dLBorderline High LDL: 130-159 mg/dLHigh LDL: 160-189 mg/dLVery High LDL: greater than or equal to 190 mg/dL HDL Cholesterol 42 >40 mg/dL [facility] Comment:Desirable HDL: great er than 40 mg/dL Note: This HDL assay may give artificially low results in patients with liver disease. Blood Venous blood specimen / Unknown 04/26/2025 3:21 PM EDT 04/26/2025 4:09 PM EDT us Mariano Rodríguez MD LAB BLOOD ORDERABLES Final Resul t [facility] [address] [place] [address] [phone] * (ABNORMAL) Comprehensive Metabolic Panel (04/26/2025 3:21 PM EDT) Sodium 143 135 - 145 mmol/L [facility] Potassium 4.0 3.3 - 5.1 mmol/L [facility] Chloride 107 96 - 108 mmol/L [facility] Carbon Dioxide 29 22 - 29 mmol/L [facility] Anion Gap 11(L) 12 - 20 [facility] Urea Nitrogen (BUN) 10 9 - 16 mg/dL [facility] Creatinine, Serum 0.67 0.5 - 1.4 mg/dL [facility] Estimated Glomerular Filt Rate >60 [facility] Comment:Chronic Kidney Disea se: Estimated GFR < 60 mL/min/[id number] Kidney Disease: Estimated GFR < 15 mL/min/1.73m2 Glucose 89 60 - 115 mg/dL [facility] Calcium 8.9 8.4 - 10.2 mg/dL [facility] Bilirubin, Total 0.5 0.0 - 1.0 mg/dL [facility] Aspartate Amino Transferase 19 5 - 31 U/L [facility] Alanine Aminotransferase 18 0 - 31 U/L [facility] Total Protein 7.0 6.5 - 8.0 g/dL [facility] Albumin Level 4.2 3.5 - 5.0 g/dL [facility] Alkaline Phosphatase 118(H) 39 - 117 U/L [facility] Blood Venous blood specimen / Unknown 04/26/2025 3:21 PM EDT 04/26/2025 4:09 PM EDT Mariano Rodríguez MD LAB BLOOD ORDERABLES Final Resul t Performing Organization Address City/[facility]/ZIP Co de Phone Number [facility] [address] [place] [address] [phone] * (ABNORMAL) Vitamin B12 (04/26/2025 1:21 PM EDT) Vitamin B12 1,212(H) 200 - 900 pg/mL [facility] Comment:NORMAL 200-900 PG/M L INDETERMINATE 160-199 PG/ML DEFICIENT < 160 PG/ML Blood Venous blood specimen / Unknown 04/26/2025 1:21 PM EDT 04/26/2025 4:04 PM EDT Mariano Rodríguez MD LAB BLOOD ORDERABLES Final Resul t Performing Organization Address [facility] Co de Phone Number [facility] [address] [place] [address] [phone] * ECG 12 lead (04/12/2025 5:09 PM EDT) Narrative NameMariano MD - 04/12/2025 5:09 PM EDT Sinus bradycardia with heart rate of 55. Right bundle branch block unchanged from her baseline. Mariano Rodríguez MD ECG ORDERABLES Final Result * BI Mammogram Screening Tomosynthesis Bilateral (03/28/2023 4:08 PM EDT) Anatomical Region Laterality Modality Breast Bilateral Mammography 03/28/2023 4:08 PM EDT Narrative 04/12/2023 8:04 PM EDT [facility] [address] [place] [address] Mammography Report Signed Patient: Kezia Michael MR#: [id number] : 1965 Acct:[id number] Age/Sex: 58 / F ADM Date: 03/28/23 Loc: HO.MAMMO Attending Dr: Mariano Rodríguez MD Ordering Physician: Mariano Rodríguez MD Results: 2Benign Fi ndings Date of Service: 03/28/23 Follow Up: 1 Year From [facility] ina Mammogram Procedure(s): MM tomosynthesis screening BI Accession Number(s): [id number] cc: Mariano Rodríguez MD EXAMINATION: MM SCREENING [...] MD in OV> 04/12/231999 DD/ 1608 TD/TT: Dry Color Tester: Procedure Note Donotuseinterpreter, Image - 04/12/[address] [facility] [address] [place], [place] [address] Mammography Report Signed Patient: Agatha Michael#: [id number] : 1965Acct:[id number] Age/Sex: 58 / FADM Date: 03/28/23 Loc: MATTHEW Attending Dr: Mariano Rodríguez MD Ordering Physician: Mariano Rodríguez MDResults: 2[facility] Date of Service: 03/28/23Follow Up: 1 Year From [facility] ina Mammogram Procedure(s): MM tomosynthesis screening BI Accession Number(s): [id number] cc: NameMariano MD EXAMINATION: MM SCREENING DIGITAL BREAST TOMOSYNTHESIS, [...] MD in OV> 04/12/231999 DD/ 1608 TD/TT: Dry Color Tester: Mariano Rodríguez MD IM BI PROCEDURES Edited Result - Final * Colonoscopy (05/17/2022) Colonoscopy performed Historical Provider HEALTH MAINTENANCE Edited Result - Final * Pap Smear (01/24/2015) Pap smear performed Historical Provider HEALTH MAINTENANCE Final Result from Last 3 Months or Most Recently Relevant to Health Maintenance Insurance * Guarantor: Kezia Michael Account Type Relation to Patient Date of Phone Billing Address Personal/Family Self [address] Care Teams Paving Block Cutter Relationship Specialty Start Date End Date Name, MD Mariano [address] [place], [place] PCP - General Family Medicine 02/27/17 Liliana Flowers Legislative DirectorPhysician Coding Specialist 08/16/24
--- OUTSIDE RECORDS SUMMARY | 2025-04-26 18:05 | XMS_ITS | Patient Health Record ---
Author Organization [facility] Address [address] [place] [address] Care Team Providers Care Tank Truck Driver Name Role Phone Name Mariano GO Primary Care Provider Reece Suazo [phone] Allergies No Known Allergies Reason For Referral No Information Medications Medication SIG (Take, Route, Frequency, Duration) Notes Start Date End Date Status Iron 325 (65 Fe) MG 1 tablet Orally Twice a day; Duration: 90 days Active clonazePAM 1 MG 1 tablet Orally Twice a day Active Clindamycin Phos-Benzoyl Perox 1-5 % 1 application to affected area Externally Twice a day Active Meclizine HCl 25 MG 1 tablet as needed Orally Once a day Active Latuda 80 MG TAKE 1 TABLET BY MOUTH EVERY EVENING Oral; Duration: 30 Not-Taking Atorvastatin Calcium 10 MG TAKE 1 TABLET BY MOUTH AT BEDTIME Oral; Duration: 30 Active Trintellix 20 MG TAKE 1 TABLET BY MOUTH EVERY MORNING Oral; Duration: 30 Active MiraLax (colon prep) 17 GM/SCOOP 1 238Gm bottle mixed with Gatorade or Crystal Light Orally begin at 5:00 p.m. the day before the procedure; Duration: 1 day 05/06/2022 Active Dulcolax (colon prep) 5 MG take at 3:00 p.m and 7:00p.m. Orally two tablets twice a day for one day; Duration: 1 day 05/06/2022 Active Vitamin B-12 500 mcg TAKE 1 TABLET BY MOUTH EVERY DAY; Duration: 30 Active Flovent HFA 220 MCG/ACT 1 puff Inhalation Twice a day Active Melatonin Active FeroSul 325 (65 Fe) MG TAKE 1 TABLET BY MOUTH TWICE DAILY IN THE MORNING AND IN THE EVENING Oral Twice a day; Duration: 90 days Active Letrozole 2.5 MG TAKE 1 TABLET EVERY MORNING Oral; Duration: 30 Active MiraLax (colon prep) 17 GM/SCOOP 1 238 Gm botttle mixed with Gatorade or Crystal Light Orally begin at 5:00 p.m. the day before the procedure; Duration: 1 day 05/03/2022 Active Omeprazole 20 MG TAKE 1 CAPSULE BY MOUTH EVERY MORNING (BEFORE MEALS) Oral; Duration: 30 Active Dulcolax (colon prep) 5 MG take at 3:00 p.m and 7:00p.m. Orally two tablets twice a day for one day; Duration: 1 day 05/03/2022 Active Lurasidone HCl 60 MG TAKE 1 TABLET BY MOUTH EVERY EVENING Oral; Duration: 30 Not-Taking Aspirin 81 MG 1 tablet Orally Once a day Not-Taking Advair HFA 230-21 MCG/ACT INHALE 2 PUFFS BY MOUTH TWICE DAILY IN THE MORNING AND AT BEDTIME RINSE MOUTH AFTER USING. Inhalation; Duration: 30 [id number],Unavail able Active Zolpidem Tartrate 10 MG TAKE 1 TABLET BY MOUTH AT BEDTIME NEEDED Oral; Duration: 30 Active Famotidine 40 MG TAKE 1 TABLET BY MOUTH AT BEDTIME Oral; Duration: 90 K219,Unavaila ble Active Ferrous Sulfate 325 (65 Fe) MG 1 tablet Orally Twice a day; Duration: 30 day(s) 01/05/2023 Active Immunizations Vaccine Route Administration Date Status Comme nts Influenza Unknown 04/13/2019 Administered Influenza Unknown 06/05/2021 Administered Influenza Unknown 05/14/2023 Administered Influenza Unknown 05/17/2020 Refused Problems Problem Type SNOMED Code ICD Code Onset Dates Problem Status W/U Status Risk Notes Problem Colon cancer screening (631604059) Colon cancer screening (Z12.11) Active confirmed Problem Iron deficiency anemia (34695010) Iron deficiency anemia (D50.9) Active confirmed Problem Gastric polyp (21419341) Gastric polyp (K31.7) Active confirmed Problem Anemia (754239340) Anemia (D64.9) Active confir med Problem Gastrointestinal hemorrhage (16365189) Lower GI bleed (K92.2) Active confirmed Problem Constipation (87923238) Constipation, unspecified constipation type (K59.00) Active confirmed Problem Gastritis (3064882) Gastritis (K29.70) Active confirmed Problem Vitamin B12 deficiency (non anemic) (28816680) Vitamin B 12 deficiency (E53.8) Active confirmed Problem Iron deficiency anemia (12456189) Iron deficiency anemia, unspecified iron deficiency anemia type (D50.9) Active confirmed Problem History of adenomatous polyp of colon (401320152) Hx of adenomatous colonic polyps (Z86.010) Active confirmed Problem Hemorrhage of colon due to diverticulosis (460164452777922) Diverticulosis of colon with hemorrhage (K57.31) Active confirmed Problem Diverticulosis of colon (627963852) Diverticulosis of colon (K57.30) Active confirmed Problem Anemia due to acute blood loss (125821809) Anemia due to acute blood loss (D62) Active confirmed Encounters Encounter Location Date Provider Diagnosis [facility] [address] [place] [address] 12/22/2024 Reece Glez Plan Of Treatment Pending Test Test Name Order Date IRON [...] Start Date Coverage End Date [employer] [place] H [address] [place] [phone] [id number] MARBIN KAUFFMAN Self - patient is the insured Medical (General) History Medical History History ICD Code Colonoscopy 04-28-2006--tubu lar adenomas removed--neg. F/U colonoscopy in 08/2011--she also had a colonoscopy in 2000 with removal of only hyperplastic polyps Asthma GERD-EGD in 08/2011-HH, no esophagitis/Ba rrett's Anxiety Depression/Bipolar disease Kidney stones She denies diabetes, [place], stroke, nor kid brian disease Sleep apnea, [...] removed. Colonoscopy 04/20/2020 with Kunal Church at [facility]-removal of ICV lesion-pathology showed adenomatous tissue but without dysplasia nor carcinoma; scheduled for F/U colonoscpy 08/03/[address] Church at [facility]. Colonoscopy in 07/2020 with Kunal Church did not show any sign of residual polyp tissue endoscopically nor by biopsies at the ileocecal valve Diverticular bleed 08/2021 at [facility]-received 1 u PRBC--- she had a positive [...]
--- OUTSIDE RECORDS SUMMARY | 2025-04-26 18:05 | XMS_ITS | Encounter Summary ---
Author Organization [employer] Address [address] [place] [address] Care Team Providers Care Library Information Technician Name Role Phone Name, Mariano GO Primary Care Provider [phone] Encounter Details Date Type Department Care Team (Late st Contact Info) Description 09/12/2024 Orders Only [facility] [address] [place], [place] [phone] Provider, MD Kasey Social History Tobacco Use [...] Description 07/11/2025 4:00 PM EST Office Visit [facility] [address] [place] [address] Name, MD Mariano [address] [place] [address] documented as of this encounter Procedures Procedure Name Priority Date/Time Associated Diagnosis Comments HM COLONOSCOPY Routine 05/10/2022 6:52 PM EDT documented in this encounter Results * Hm Colonoscopy (05/10/2022 6:52 PM EDT) Historical Provider HEALTH MAINTENANCE Final Result documented in this encounter Visit Diagnoses Not on filedocumented in this encounter Additional Health Concerns Assessment Noted Time PHQ-9 Depression Total Score: 8 07/29/19 24 4:18 PM EST documented as of this encounter Care Teams Library Information Technician Relationship Specialty Start Date End Date Name, MD Mariano [address] [place] [phone] PCP - General Family Medicine 02/27/17 Liliana Flowers Lab TechTeaching Artist 08/16/24 documented as of this encounter
--- OUTSIDE RECORDS SUMMARY | 2025-04-26 18:05 | XMS_ITS | Encounter Summary ---
Author Organization [facility] Address [address] [place] [address] Phone Care Team Providers Care Pricer Bagger Name Role Phone Unavailable Primary Care Provider Unavailabl e Encounter Details Date Type Department Care Team (Late st Contact Info) Description 09/24/2017 Ancillary Orders [facility] [address] [place] [address] [address]rd Floor, [address] [place] [address] Zenaida Henriquez PA [address] [place] [address] Social History Tobacco Use Types Packs/Day Years Used Date Smoking Tobacco: Never Assessed Comments Unknown Sex and Gender Information Value Date Recorded Sex Assigned at Not on file Legal Sex Female 10:33 AM EDT Gender Identity Not on file Sexual Orientation Not on file documented as of this encounter Plan of Treatment Not on file documented as of this encounter Visit Diagnoses Not on filedocumented in this encounter Additional Source Comments The information contained in this document represents components of the legal health record. It is not the complete legal health record.[facility]
--- OUTSIDE RECORDS SUMMARY | 2025-04-26 18:05 | XMS_ITS | Encounter Summary ---
Author Organization [email or web address] Address [address] [facility] 7t [place] [address] Care Team Providers Care Slope Tender Name Role Phone Name, Mariano GO Primary Care Provider [phone] Encounter Details Date Type Department Care Team (Late Contact Info) Description 12/25/2022 Abstract [facility] MED[facility]INE [address] [place] [address] [phone] Name, MD Mariano [address] [place] [address] [phone] Social History Tobacco Use Types Packs/Day Years [...] Department Care Team (Late Contact Info) Description 07/11/2025 4:00 PM EST Office Visit [facility] [address] [place] [address] [phone] Name, MD Mariano [address] [place] [address] [phone] documented as of this encounter Visit Diagnoses Not on filedocumented in this encounter Additional Health Concerns Assessment Noted Time PHQ-9 Depression Total Score: 0 07/01/20 22 1:35 PM EST documented as of this encounter Care Teams Slope Tender Relationship Specialty Start Date End Date Name, MD Mariano [address] [place] [address] PCP - General Family Medicine 02/27/17 Che Grissom Gold CharmerPlumber Cub 03/27/23 08/15/24 Liliana Flowers Supervisor Of OfficialsPlumber Cub 08/16/24 documented as of this encounter
--- OUTSIDE RECORDS SUMMARY | 2025-04-26 18:05 | XMS_ITS | Clinical Summary ---
Author Organization [facility] Address [address] [place] [address] Phone Care Team Providers Care Framing Consultant Name Role Phone Unavailable Primary Care Provider Unavailabl e Social History Tobacco Use Types Packs/Day Years Used Date Smoking Tobacco: Never Assessed Comments Unknown Sex and Gender Information Value Date Recorded Sex Assigned at Not on file Legal Sex Female 10:33 AM EDT Gender Identity Not on file Sexual Orientation Not on file Plan of Treatment Not on file Medical Devices Not on file Insurance [facility] C3 ACO [facility] [place] [place] [address] [place] [address] C3 A[employer] [facility] [place] [place] [address] [place] [address] [place] [address] [place] [address] C3 ACO [facility] C3 ACO Additional Source Comments The information contained in this document represents components of the legal health record. It is not the complete legal health record.[facility]
== END 2025-04-26 15:12 | disposition home or self-care (01) ==
LOC: HO.HHCL 15:11
PROVIDERS: PCP Internal Medicine Geriatric Medicine; Visit Provider Internal Medicine Geriatric Medicine
DX: E53.8 Deficiency of other specified B group vitamins (principal); Z79.899 Other long term (current) drug therapy
CPT/HCPCS: 36415; 80053; 80061; 82607; 85025

== ENCOUNTER 2025-06-23 15:17 | Outpatient (REF) | payer MEDICAID, SELFPAY ==
--- NOTE | ~2025-06-23 | MM_ITS ---
EXAMINATION: MM SCREENING DIGITAL BREAST TOMOSYNTHESIS, BILATERAL CLINICAL INFORMATION: Screening. Asymptomatic. COMPARISON: Mammography: Comparison is made with available priors TECHNIQUE: Digital breast mammography with tomosynthesis is performed in both the craniocaudal and mediolateral oblique views along with computer-aided detection (CAD). FINDINGS: There are scattered areas of fibroglandular density. Bilateral excisional biopsy. There are no significant masses, abnormal calcifications, or other abnormalities. MM/MM tomosynthesis screening BI IMPRESSION: No mammographic evidence of malignancy. ASSESSMENT: BI-RADS Category 2: Benign RECOMMENDATION: Routine annual mammography screening. 1 year F/U This examination should not preclude the clinical evaluation of a suspicious palpable abnormality. This patient's information was entered into a reminder system with a target due date for their next mammogram. Electronically signed by: Lola Estrella DO 06/28/2025 11:08 AM FARTUN
--- OUTSIDE RECORDS SUMMARY | 2025-06-23 22:51 | XMS_ITS | Encounter Summary ---
Author Organization [employer] Address [address] [facility] 7t [place] [address] Care Team Providers Care Stumper Feller Name Role Phone Name, Mariano GO Primary Care Provider [phone] Encounter Details Date Type Department Care Team (Late Contact Info) Description 12/25/2022 Abstract [facility] [address] [place] [address] [phone] Name, MD Mariano [address] [place] [address] [phone] Social History Tobacco Use Types Packs/Day Years [...] Description 07/11/2025 4:00 PM EST Office Visit [facility] [address] [place] [address] [phone] Name, MD Mariano [address] [place] [address] [phone] documented as of this encounter Visit Diagnoses Not on filedocumented in this encounter Additional Health Concerns Assessment Noted Time PHQ-9 Depression Total Score: 0 07/01/20 22 1:35 PM EST documented as of this encounter Care Teams Stumper Feller Relationship Specialty Start Date End Date Name, MD Mariano [address] [place] [address] PCP - General Family Medicine 02/27/17 Che Grissom Supervisor Coal HandlingCutting Supervisor 03/27/23 08/15/24 Liliana Flowers Awning HangerCutting Supervisor 08/16/24 documented as of this encounter
--- OUTSIDE RECORDS SUMMARY | 2025-06-23 22:51 | XMS_ITS | Clinical Summary ---
Author Organization [facility] Address [address] [place] [address] Phone Care Team Providers Care Nailhead Operator Name Role Phone Unavailable Primary Care Provider [...] Medical Devices Not on file Insurance [facility] C3 ACO [facility] C[address] [place] [address] [place] [address] C3 ACO [facility] [address] [place] [address] [place] [address] [place] [address] [place] [address] C3 ACO [facility] C3 ACO Additional Source Comments The information contained in this document represents components of the legal health record. It is not the complete legal health record.[facility]
--- OUTSIDE RECORDS SUMMARY | 2025-06-23 22:51 | XMS_ITS | Encounter Summary ---
Author Organization [employer] Address [address] [facility] 7t [place] [address] Care Team Providers Care Destaticizer Feeder Name Role Phone Name, Mariano GO Primary Care Provider [phone] Encounter Details Date Type Department Care Team (Latest Contact Info) Description 03/27/2021 Abstract [facility] CONVERSIONS Dental, Provider, DDS Social History [...] Description 07/11/2025 4:00 PM EST Office Visit [facility] MEDICINE [address] [place] [address] Name, MD Mariano [address] [place] [address] documented as of this encounter Visit Diagnoses Not on filedocumented in this encounter Care Teams Destaticizer Feeder Relationship Specialty Start Date End Date Name, MD Mariano [address] [place] [address] PCP - General Family Medicine 02/27/17 Che Grissom Master PilotBaker Test 03/27/23 08/15/24 Liliana Flowers Scale ExpertBaker Test 08/16/24 documented as of this encounter
--- OUTSIDE RECORDS SUMMARY | 2025-06-23 22:51 | XMS_ITS | Clinical Summary ---
Author Organization [facility] Address [address] [place] [address] Care Team Providers Care Clinical Dietician Name Role Phone Unavailable Primary Care Provider [...] - 2023-2 5 season) 2025 RSV Vaccine 50 years and old er and Patients (1 - 1-dose 75+ series) 2038 Hepatitis B Vaccines Aged Out No long er eligible based on patient's age to complete this topic
--- OUTSIDE RECORDS SUMMARY | 2025-06-23 22:51 | XMS_ITS | Encounter Summary ---
Author Organization [employer] Address [address] [facility] 7t [place] [address] Care Team Providers Care Major Account Manager Name Role Phone Name, Mariano GO Primary Care Provider [phone] Reason for Visit * Reason Onset Date Comments Med Refill 09/27/2024 Encounter Details Date Type Department Care Team ([facility] st Contact Info) Description 09/27/2024 Telephone [facility] MEDICINE [address] [place] [address] Name, MD Mariano [address] [place] [address] Med Refill Social History Tobacco Use Types [...] pended to PCP. * Telephone Encounter - Roas Baum - 09/27/2024 9:45 AM EDT TC from pt requesting medication refill. Medications needing refill : atorvastatin (Lipitor) 10 MG tablet To be sent to: [facility] documented in this encounter Plan of Treatment Upcoming Encounters Date Type Department Care Team (Late st Contact Info) Description 07/11/2025 4:00 PM EST Office Visit [facility] MEDICINE [address] [place] [address] Name, MD Mariano [address] [place] [address] documented as of this encounter Visit Diagnoses Not on filedocumented in this encounter Additional Health Concerns Assessment Noted Time PHQ-9 Depression Total Score: 8 07/29/19 24 4:18 PM EST documented as of this encounter Care Teams Major Account Manager Relationship Specialty Start Date End Date NameMariano MD [address] [place] [address] PCP - General Family Medicine 02/27/17 Liliana Flowers Laborer TanbarkPatch Driller 08/16/24 documented as of this encounter
--- OUTSIDE RECORDS SUMMARY | 2025-06-23 22:51 | XMS_ITS | Patient Health Record ---
Author Organization [facility] Address [address] [place] [address] Care Team Providers Care Veneer Measurer Name Role Phone Name Mariano GO Primary Care Provider Reece Suazo [phone] Allergies No Known Allergies Reason For Referral No Information Medications Medication SIG (Take, Route, Frequency, Duration) Notes Start Date End Date Status Iron 325 (65 Fe) MG Tablet 1 tablet Orally Twice a day; Duration: 90 days Active clonazePAM 1 MG Tablet 1 tablet Orally Twice a day Active Clindamycin Phos-Benzoyl Perox 1-5 % Gel 1 application to affected area Externally Twice a day Active Meclizine HCl 25 MG Tablet Chewable 1 tablet as needed Orally Once a day Active Latuda 80 MG Tablet TAKE 1 TABLET BY MOUTH EVERY EVENING Oral; Duration: 30 Not-Taking/MS N Atorvastatin Calcium 10 MG Tablet TAKE 1 TABLET BY MOUTH AT BEDTIME Oral; Duration: 30 Active Trintellix 20 MG Tablet TAKE 1 TABLET BY MOUTH EVERY MORNING Oral; Duration: 30 Active MiraLax (colon prep) 17 GM/SCOOP Powder 1 238Gm bottle mixed with Gatorade or Crystal Light Orally begin at 5:00 p.m. the day before the procedure; Duration: 1 day 05/06/2022 Active Dulcolax (colon prep) 5 MG Tablet Delayed Release take at 3:00 p.m and 7:00p.m. Orally two tablets twice a day for one day; Duration: 1 day 05/06/2022 Active Vitamin B-12 500 mcg Tablet TAKE 1 TABLET BY MOUTH EVERY DAY; Duration: 30 Active Flovent HFA 220 MCG/ACT Aerosol 1 puff Inhalation Twice a day Active Melatonin Active FeroSul 325 (65 Fe) MG Tablet TAKE 1 TABLET BY MOUTH TWICE DAILY IN THE MORNING AND IN THE EVENING Oral Twice a day; Duration: 90 days Active Letrozole 2.5 MG Tablet TAKE 1 TABLET EVERY MORNING Oral; Duration: 30 Active MiraLax (colon prep) 17 GM/SCOOP Powder 1 238 Gm botttle mixed with Gatorade or Crystal Light Orally begin at 5:00 p.m. the day before the procedure; Duration: 1 day 05/03/2022 Active Omeprazole 20 MG Capsule Delayed Release TAKE 1 CAPSULE BY MOUTH EVERY MORNING (BEFORE MEALS) Oral; Duration: 30 Active Dulcolax (colon prep) 5 MG Tablet Delayed Release take at 3:00 p.m and 7:00p.m. Orally two tablets twice a day for one day; Duration: 1 day 05/03/2022 Active Lurasidone HCl 60 MG Tablet TAKE 1 TABLET BY MOUTH EVERY EVENING Oral; Duration: 30 Not-Taking/MS N Aspirin 81 MG Tablet 1 tablet Orally Once a day Not-Taking/MS N Advair HFA 230-21 MCG/ACT Aerosol INHALE 2 PUFFS BY MOUTH TWICE DAILY IN THE MORNING AND AT BEDTIME RINSE MOUTH AFTER USING. Inhalation; Duration: 30 J4520,Unavail able Active Zolpidem Tartrate 10 MG Tablet TAKE 1 TABLET BY MOUTH AT BEDTIME NEEDED Oral; Duration: 30 Active Famotidine 40 MG Tablet TAKE 1 TABLET BY MOUTH AT BEDTIME Oral; Duration: 90 K219,Unavaila ble Active Ferrous Sulfate 325 (65 Fe) MG Tablet 1 tablet Orally Twice a day; Duration: 30 day(s) 01/05/2023 Active Immunizations Vaccine Route Administration Date Status Comme nts Influenza Unknown 04/13/2019 Administered Influenza Unknown 05/17/2020 Refused Influenza Unknown 06/05/2021 Administered Influenza Unknown 05/14/2023 Administered Social History Social History Additional Details Category Social Info Options Details Miscellaneous: Marital status: , but lives with her partner 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 Section Notes: He does not smoke nor use an y significant amounts of alcohol She does not smoke nor use a ny significant amounts of alcohol She does not smoke nor use a ny significant amounts of alcohol She does not smoke nor use a ny significant amounts of alcohol She does not smoke nor use a ny significant amounts of alcohol She does not smoke nor use a ny significant amounts of alcohol She does not smoke nor use a ny significant amounts of alcohol She does not smoke nor use a ny significant amounts of alcohol Problems Problem Type SNOMED Code ICD Code Onset Dates Problem Status W/U Status Risk Notes Problem Colon cancer screening (893609277) Colon cancer screening (Z12.11) Active confirmed Problem Iron deficiency anemia (71582300) Iron deficiency anemia (D50.9) Active confirmed Problem Gastric polyp (66771667) Gastric polyp (K31.7) Active confirmed Problem Anemia (472821671) Anemia (D64.9) Active confir med Problem Gastrointestinal hemorrhage (56314228) Lower GI bleed (K92.2) Active confirmed Problem Constipation (90387879) Constipation, unspecified constipation type (K59.00) Active confirmed Problem Gastritis (3606953) Gastritis (K29.70) Active confirmed Problem Vitamin B12 deficiency (non anemic) (12744666) Vitamin B 12 deficiency (E53.8) Active confirmed Problem Iron deficiency anemia (76612869) Iron deficiency anemia, unspecified iron deficiency anemia type (D50.9) Active confirmed Problem History of adenomatous polyp of colon (953723465) Hx of adenomatous colonic polyps (Z86.010) Active confirmed Problem Hemorrhage of colon due to diverticulosis (164468805644532) Diverticulosis of colon with hemorrhage (K57.31) Active confirmed Problem Diverticulosis of colon (736264805) Diverticulosis of colon (K57.30) Active confirmed Problem Anemia due to acute blood loss (905712331) Anemia due to acute blood loss (D62) Active confirmed Encounters Encounter Location Date Provider Diagnosis [facility] [address] [facility] [address] [place] [address] 12/22/2024 Reece Glez Plan Of Treatment Pending [...] Start Date Coverage End Date MEDICAID OF [place] [address] [place] [phone] [id number] MARBIN KAUFFMAN Self - patient is the insured Medical (General) History Medical History History ICD Code Colonoscopy 04-28-2006--tubu lar adenomas removed--neg. F/U colonoscopy in 08/2011--she also had a colonoscopy in 2000 with removal of only hyperplastic polyps Asthma GERD-EGD in 08/2011-HH, no esophagitis/Ba rrett's Anxiety Depression/Bipolar disease Kidney stones She denies diabetes, [place], stroke, nor kid brian disease Sleep apnea, [...] removed. Colonoscopy 04/20/2020 with Kunal Church at [facility]-removal of ICV lesion-pathology showed adenomatous tissue but without dysplasia nor carcinoma; scheduled for F/U colonoscpy 08/03/[address] Church at [facility]. Colonoscopy in 07/2020 with Kunal Church did not show any sign of residual polyp tissue endoscopically nor by biopsies at the ileocecal valve Diverticular bleed 08/[address] [facility]-received 1 u PRBC--- she had a positive [...] Date(Month/Year) Sigmoid diverticulitis with surgery by Kunal Rudloph in 2006 Perirectal abscess Cholecystectomy in 2012 Left lumpectomy and lymph nodes for sheyla st cancer Hospitalization History Reason Date(Month/Year) GI bleed 2021
--- OUTSIDE RECORDS SUMMARY | 2025-06-23 22:51 | XMS_ITS | Encounter Summary ---
Author Organization [facility] Address [address] [place] [address] Phone Care Team Providers Care Refractory Worker Name Role Phone Unavailable Primary Care Provider Unavailabl e Encounter Details Date Type Department Care Team (Late st Contact Info) Description 09/24/2017 Ancillary Orders [facility] [address] [place] [address] 3rd Floor, [address] [place] [address] Zenaida Henriquez PA [address] [place] [address] Social History Tobacco Use Types Packs/Day Years [...] It is not the complete legal health record.[facility]
--- OUTSIDE RECORDS SUMMARY | 2025-06-23 22:51 | XMS_ITS | Encounter Summary ---
Author Organization [facility] Address [address] [facility] [address] [place] [address] Phone Care Team Providers Care Medium Cycle Salesperson Name Role Phone Unavailable Primary Care Provider Unavailabl e Encounter Details Date Type Department Care Team (Late st Contact Info) Description 09/24/2017 Ancillary Orders [facility] [address] [place] [address] [place] [address] Zenaida Henriquez PA [address] [place] [address] Palpitation Social History Tobacco Use Types Packs/Day [...] It is not the complete legal health record.[facility]
--- OUTSIDE RECORDS SUMMARY | 2025-06-23 22:51 | XMS_ITS | Encounter Summary ---
Author Organization [email or web address] Address [address] [facility] 7t [place] [address] Care Team Providers Care Technical Program Manager Name Role Phone Name, Mariano GO Primary Care Provider [phone] Reason for Visit * Reason Onset Date Comments ER Follow-up 02/04/2024 Referral 02/04/2024 Encounter Details Date Type Department Care Team ([facility] st Contact Info) Description 02/04/2024 Telephone [facility] [address] [place] [address] Name, MD Mariano [address] [place] [address] ER Follow-up; Referral Social History Tobacco Use [...] below message, pt. Had ED visit at [facility] for pelvic cystic mass and back pain, pt. States she is doing well and she already called to OBGYN but also wants to see provider at [facility]. Pt. Advised that ED states to follow up with OBGYN but pt. States again she also wants to see provider for ED follow up at [facility] to discuss pelvic cystic mass. Pt. Schedule for Sick apt. On 02/09/2024. Pt. Also advised to go to nearest ED in case of any new or worsening symptoms. [facility] hours are reviewed. Pt. Verbally agreed and understood. 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 Patient advised will forward to team nurse for follow up documented in this encounter Plan of Treatment Upcoming Encounters Date Type Department Care Team (Late st Contact Info) Description 07/11/2025 4:00 PM EST Office Visit [facility] [address] [facility] [place] [address] Name, MD Mariano [facility] [facility] [place] [address] documented as of this encounter Visit Diagnoses Not on filedocumented in this encounter Additional Health Concerns Assessment Noted Time PHQ-9 Depression Total Score: 8 07/29/19 24 4:18 PM EST documented as of this encounter Care Teams Technical Program Manager Relationship Specialty Start Date End Date Name, MD Mariano [facility] [facility] [place] [address] PCP - General Family Medicine 02/27/17 Che Grissom Outreach CoordinatorHospital Supervisor 03/27/23 08/15/24 Liliana Flowers Telephoto InstallerHospital Supervisor 08/16/24 documented as of this encounter
--- OUTSIDE RECORDS SUMMARY | 2025-06-23 22:51 | XMS_ITS | Clinical Summary ---
Author Organization [email or web address] Address [address] [place] [address] Care Team Providers Care Site Superintendent Name Role Phone Name, Mariano GO Primary Care Provider [phone] Allergies No known active allergies Medications polyethylene [...] by mouth every 8 (eight) hours. Active fluticasone-roland meterol (Advair) 230-21 MCG/ACT inhalerIndicati ons:Intermitten t asthma, unspecified asthma severity, unspecified whether complicated Inhale 2 puffs in the morning and at bedtime. Rinse mouth with water after use to reduce aftertaste and incidence of candidiasis. Do not swallow. 12 g 11 07/01/20 22 Active cloNIDine (Catapres) 0.1 MG tablet Take 0.1 mg by mouth in the evening. Active valbenazine tosylate (Ingrezza) 80 MG capsule Take 1 capsule (80 mg) by mouth Once per day. 11/17/19 24 Active Blood Pressure Monitoring (Blood Pressure Cuff) miscIndications :Elevated blood pressure reading 1 Units if needed each day (as needed daily). 1 each 1 12/15/19 24 Active famotidine (Pepcid) 40 MG tabletIndicatio ns:Gastroesopha geal reflux disease, unspecified whether esophagitis present TAKE 1 TABLET BY MOUTH AT BEDTIME 90 tablet 06/08/20 24 Active clotrimazole-be tamethasone (Lotrisone) cream APPLY TOPICALLY TO AFFECTED AREA(S) TWICE DAILY FOR 14 DAYS 90 g 1 08/19/19 25 Active cyanocobalamin (Vitamin B-12) 500 MCG tablet Take 1 tablet (500 mcg) by mouth Once per day. 90 tablet 3 5 10:19 AM EST 09/14/19 25 026 Active atorvastatin (Lipitor) 10 MG tabletIndicatio ns:Morbid obesity (CMS/HCC) (HCC) TAKE 1 TABLET BY MOUTH AT BEDTIME 90 tablet 3 09/28/19 25 Active ibuprofen 600 MG tabletIndicatio ns:Pelvic mass TAKE 1 TABLET BY MOUTH EVERY 8 HOURS NEEDED FOR MILD PAIN FOR UP TO 20 DAYS 30 tablet 1 11/12/19 25 Active FLUoxetine (PROzac) 20 MG capsule take 2 capsules by mouth once daily in the morning 12/15/19 25 Active meclizine (Antivert) 25 MG tablet TAKE 1 TABLET BY MOUTH THREE TIMES DAILY IN THE MORNING, AT NOON, AND AT BEDTIME NEEDED FOR DIZZINESS 30 tablet 02/17/20 25 Active miconazole (Micotin) 2 % powderIndicatio ns:Tinea corporis Apply topically if needed for itching. 85 g 2 04/12/20 25 Active famotidine (Pepcid) 40 MG tabletIndicatio ns:Gastroesopha geal reflux disease, unspecified whether esophagitis present TAKE 1 TABLET BY MOUTH AT BEDTIME 90 tablet 1 05/13/20 25 Active B Complex Vitamins (Vitamin B Complex) capsule TAKE 1 CAPSULE BY MOUTH EVERY DAY 90 each 1 5 10:19 AM EST 05/13/20 25 Active omeprazole (PriLOSEC) [address] capsuleIndicati ons:Gastroesoph ageal reflux disease, unspecified whether esophagitis present TAKE 1 CAPSULE BY MOUTH EVERY MORNING BEFORE MEALS 90 capsule 1 5 10:19 AM EST 06/08/20 25 Active omeprazole (PriLOSEC) [address] capsuleIndicati ons:Gastroesoph ageal reflux disease, unspecified whether esophagitis present TAKE 1 CAPSULE BY MOUTH EVERY MORNING BEFORE MEALS 90 capsule 1 12/18/19 25 025 Discontinued Active Problems Problem Noted Date Diagnosed Date Pelvic mass 02/09/2024 Assessment & Plan (02/09/2024 5:48 PM EDT): Urgent referral to [facility] therapist for further evaluation, pt denies constitutional symptoms, [...] Encounters Date Type Department Care Team Description 06/08/2025 Refill [facility] [address] [place] [address] NameMariano MD Gastroesophageal reflux disease, unspecified whether esophagitis present 05/13/2025 Refill [facility] [address] [place] [address] Janet Cox MD Gastroesophageal reflux disease, unspecified whether esophagitis present 04/12/2025 4:00 PM EDT Office Visit [facility] [address] [place] [address] NameMariano MD Palpitations (Primary Dx); Syncope and collapse; Cobalamin deficiency; On statin therapy; Tinea corporis; Encounter for screening mammogram for malignant neoplasm of breast; Encounter for immunization 04/12/2025 Travel from Last 3 Months Immunizations Immunization Administration [...] the past 12 months, has t he [employer] gas, oil or water company threatened to [...] 4:00 PM EST Office Visit [facility] [address] [place] [phone] Name, MD Mariano [address] [place] [phone] Health Maintenance Due Date Last Done Comments CT Colonography 1965 FIT DNA/Cologuard 1965 FIT 1965 FOBT 1965 HIV Screening 1965 Sigmoidoscopy 1965 Disability Screening 1965 Alcohol/Substance Use Screening 1975 Hepatitis C Screening 1981 HPV/Cotest 1993 RSV Patients and Patients Aged 60 years or older (1 - Risk 50-74 years 1-dose series) 2013 Zoster Vaccines (1 of 2) 2013 Cervical Cancer Screening 01/24/2018 Pap Smear 01/24/2018 01/24/2015 Depression Screening 07/29/2024 07/29/2023, 07/29/19 24 SDOH Screening 07/29/2024 07/29/2023 COVID-19 Vaccine ( season) 2025 04/27/2024, 07/01/2022, 10/26/2021, Additional history exists Mammogram 03/28/2025 03/28/2023, 12/2021, 03/09/2020, Additional history exists Colonoscopy 05/17/2025 05/17/2022, 04/14, 05/10/2022, Additional history exists Colorectal Cancer Screening 05/17/2025 Tobacco Screening 04/12/2026 04/12/2025 Lipid Panel 04/26/2030 04/26/2025, 07/14, 09/30/2020 DTaP/Tdap/Td Vaccines (3 - Td or Tdap) 04/01/2033 04/01/2023, 05/01/2012, 04/15/2003 Pneumococcal Vaccine: 50+ Years Completed 11/17/2023, 05/05/2007 Influenza Vaccine Completed 04/12/2025, , 05/14/2023, Additional [...] Blood Count 5.5 4.8 - 10.8 X10*3/uL [facility] Red Blood Count 4.84 4.20 - 5.50 X10*6/uL [facility] Hemoglobin 13.6 12.0 - 16.0 g/dl [facility] Hematocrit 43.3 37.0 - 47.0 % [facility] Mean Corpuscular Volume 89.5 80.0 - 98.0 fL [facility] Mean Corpuscular Hemoglobin 28.1 27.0 - 33.0 pg [facility] Mean Corpuscular HGB Conc 31.4 31.0 - 35.0 g/dl [facility] Red Cell Distribution Width 13.4 11.0 - 16.0 % [facility] Platelet Count 282 160 - 400 X10*3/uL [facility] Mean Platelet Volume 10.8 9.4 - 12.3 fL [facility] Neutrophils Percent Auto 61.0 45 - 73 % [facility] Imm Gran Pct Auto 0.4 0.0 - 0.4 % [facility] Lymphocytes Percent Auto 26.0 20 - 40 % [facility] Monocytes Percent Auto 9.0 2 - 11 % [facility] Eosinophils Percent Auto 2.7 0 - 4 % [facility] Basophils Percent Auto 0.9 0 - 2 % [facility] NRBC Pct Auto 0.0 0.0 - 0.2 /100WBC [facility] Neutrophils Absolute Auto 3.4 2.0 - 8.3 x10*3/uL [facility] Imm Gran Abs Auto 0.02 0.00 - 0.03 X10*3/uL [facility] Lymphocytes Absolute Auto 1.4 1.2 - 4.9 X10*3/uL [facility] Monocytes Absolute Auto 0.5 0.1 - 1.2 X10*3/uL [facility] Eosinophils Absolute Auto 0.2 0.0 - 0.4 X10*3/uL [facility] Basophils Absolute Auto 0.1 0.0 - 0.2 X10*3/uL [facility] NRBC Abs Auto 0.000 0.0 - 0.012 X10*3/uL [facility] Blood Venous blood specimen / Unknown 04/26/2025 3:21 PM EDT 04/26/2025 4:09 PM EDT us Mariano Name MD LAB BLOOD ORDERABLES Final Resul t [facility] [address] [place] [phone] * (ABNORMAL) Lipid Panel, Standard (04/26/2025 3:21 PM EDT) Triglycerides 145 <150 mg/dL [facility] Comment:Desirable Triglyceri de: less than 150 mg/dLBorderline High Triglyceride 150-199 mg/dLHigh Triglyceride: 200-499 mg/dLVery High Triglyceride: greater than or equal to 5OO mg/dL Cholesterol 173 <200 mg/dL [facility] Comment:Desirable Cholestero l: less than 200 mg/dLBorderline High Cholesterol: 200-239 mg/dLHigh Cholesterol: greater than 239 mg/dL LDL Cholesterol Calculated 102(H) <100 mg/dL [facility] Comment:Desirable LDL: less than 100 mg/dLNear Optimal/Above Optimal LDL: 110- 129 mg/dLBorderline High LDL: 130-159 mg/dLHigh LDL: 160-189 mg/dLVery High LDL: greater than or equal to 190 mg/dL HDL Cholesterol 42 >40 mg/dL [facility] Comment:Desirable HDL: great er than 40 mg/dL Note: This HDL assay may give artificially low results in patients with liver disease. Blood Venous blood specimen / Unknown 04/26/2025 3:21 PM EDT 04/26/2025 4:09 PM EDT us Mariano Rodríguez MD LAB BLOOD ORDERABLES Final Resul t [facility] [address] [place] [phone] * (ABNORMAL) Comprehensive Metabolic Panel (04/26/2025 3:21 PM EDT) Sodium 143 135 - 145 mmol/L [facility] Potassium 4.0 3.3 - 5.1 mmol/L [facility] Chloride 107 96 - 108 mmol/L [facility] Carbon Dioxide 29 22 - 29 mmol/L [facility] Anion Gap 11(L) 12 - 20 [facility] Urea Nitrogen (BUN) 10 9 - 16 mg/dL [facility] Creatinine, Serum 0.67 0.5 - 1.4 mg/dL [facility] Estimated Glomerular Filt Rate >60 [facility] Comment:Chronic Kidney Disea se: Estimated GFR < 60 mL/min/1.48q1Ksdjbo Kidney Disease: Estimated GFR < 15 mL/min/1.73m2 Glucose 89 60 - 115 mg/dL [facility] Calcium 8.9 8.4 - 10.2 mg/dL [facility] Bilirubin, Total 0.5 0.0 - 1.0 mg/dL [facility] Aspartate Amino Transferase 19 5 - 31 U/L [facility] Alanine Aminotransferase 18 0 - 31 U/L [facility] Total Protein 7.0 6.5 - 8.0 g/dL [facility] Albumin Level 4.2 3.5 - 5.0 g/dL [facility] Alkaline Phosphatase 118(H) 39 - 117 U/L [facility] Blood Venous blood specimen / Unknown 04/26/2025 3:21 PM EDT 04/26/2025 4:09 PM EDT us Mariano Rodríguez MD LAB BLOOD ORDERABLES Final Resul t Performing Organization Address [facility]/ZIP Co de Phone Number [facility] [address] [place] [phone] * (ABNORMAL) Vitamin B12 (04/26/2025 1:21 PM EDT) Vitamin B12 1,212(H) 200 - 900 pg/mL [facility] Comment:NORMAL 200-900 PG/ML INDETERMINATE 160-199 PG/ML DEFICIENT < 160 PG/ML Blood Venous blood specimen / Unknown 04/26/2025 1:21 PM EDT 04/26/2025 4:04 PM EDT us Mariano Rodríguez MD LAB BLOOD ORDERABLES Final Resul t Performing Organization Address [facility] Co de Phone Number [facility] [address] [place] [address] [phone] * ECG 12 lead (04/12/2025 5:09 PM EDT) Narrative Name, MD Mariano - 04/12/2025 5:09 PM EDT Sinus bradycardia with heart rate of 55. Right bundle branch block unchanged from her baseline. us Mariano Rodríguez MD ECG ORDERABLES Final Result * BI Mammogram Screening Tomosynthesis Bilateral (03/28/2023 4:08 PM EDT) Anatomical Region Laterality Modality Breast Bilateral Mammography 03/28/2023 4:08 PM EDT Narrative 04/12/2023 8:04 PM EDT [facility] [address] [place] [address] Mammography Report Signed Patient: Kezia Michael MR#: [id number] : 1965 Acct:[id number] Age/Sex: 58 / F ADM Date: 03/28/23 Loc: HO.MAMMO Attending Dr: Mariano Rodríguez MD Ordering Physician: Mariano Rodríguez MD Results: 2Benign Fi ndings Date of Service: 03/28/23 Follow Up: 1 Year From Orig inal Mammogram Procedure(s): MM tomosynthesis screening BI Accession Number(s): [id number] cc: Mariano Rodríguez MD EXAMINATION: MM SCREENING [...] MD in OV> 04/12/231999 DD/ 1608 TD/TT: Treasury Associate: Procedure Note Donotuseinterpreter, Image - [facility]12/[facility] [address] [place] [address] Mammography Report Signed Patient: Agatha Michael#: [id number] : 1965Acct:[id number] Age/Sex: 58 / FADM Date: 03/28/23 Loc: HO.MAMMO Attending Dr: Mariano Rodríguez MD Ordering Physician: Mariano Rodríguez MDResults: 2Benign Fi ndings Date of Service: 03/28/23Follow Up: 1 Year From Orig inal Mammogram Procedure(s): MM tomosynthesis screening BI Accession Number(s): [id number] cc: Mariano Rodríguez MD EXAMINATION: MM SCREENING [...] MD in OV> 04/12/231999 DD/ 1608 TD/TT: Treasury Associate: us Mariano Rodríguez MD IMG BI PROCEDURES Edited Result - Final * Colonoscopy (05/17/2022) Colonoscopy performed us Historical Provider HEALTH MAINTENANCE Edited Result - Final * Pap Smear (01/24/2015) Pap smear performed us Historical Provider HEALTH MAINTENANCE Final Result from Last 3 Months or Most Recently Relevant to Health Maintenance Insurance Care Teams Site Superintendent Relationship Specialty Start Date End Date Name, MD Mariano [address] [place], [place] PCP - General Family Medicine 02/27/17 Liliana Flowers License ExaminerTurf Farmer 08/16/24
--- OUTSIDE RECORDS SUMMARY | 2025-06-23 22:51 | XMS_ITS | Encounter Summary ---
Author Organization [employer] Address [address] [place] [address] Care Team Providers Care Wrister Name Role Phone Name, Mariano GO Primary Care Provider Encounter Details Date Type Department Care Team (Late st Contact Info) Description 09/12/2024 Orders Only [facility] [address] [place], [place] [phone] Provider, MD Kasey Social History Tobacco Use [...] Description 07/11/2025 4:00 PM EST Office Visit [facility] [address] [place] [address] Name, MD Mariano [address] [place] [phone] documented as of this encounter Procedures Procedure [...] documented as of this encounter Care Teams Wrister Relationship Specialty Start Date End Date Name, MD Mariano [address] [place] [phone] PCP - General Family Medicine 02/27/17 Liliana Flowers Back WinderLoose Hand Packer 08/16/24 documented as of this encounter
== END 2025-06-23 15:18 | disposition home or self-care (01) ==
LOC: HO.MAMMO 15:17
PROVIDERS: PCP Internal Medicine Geriatric Medicine; Visit Provider Internal Medicine Geriatric Medicine
DX: Z12.31 Encounter for screening mammogram for malignant neoplasm of breast (principal)
CPT/HCPCS: 77063; 77067

== ENCOUNTER → 2025-06-23 16:30 | Outpatient (BNV) | payer MEDICAID, SELFPAY | PROVIDERS: PCP Internal Medicine Geriatric Medicine; Visit Provider Internal Medicine | DX: Z12.31 Encounter for screening mammogram for malignant neoplasm of breast (principal) | CPT/HCPCS: 77063; 77067 ==